=== PATIENT | male | born 1955 | race Caucasian/White ===

== ENCOUNTER 2016-12-14 14:37 | Observation (INO) | payer OTHER ==
[~2016-12-14] VITALS: Ht 177.8 cm; Wt 100.0 kg
[~2016-12-14 14:37] MED LIST: DICL500 PO; FEXO180 PO; GLIP1TAB18 PO; GLIP5 PO; METF500 PO; METO50TA11 PO; NORC7.5T PO; RAMI5CAP7 PO; RANI150T PO; ROSU40 PO; STOO100C PO; SULF400T20 PO; TERA2CAP3 PO; Z.0.WALKERFRONT
[2016-12-14 14:40] VITALS: BP 148/81; PULSE 77; RESP 15; TEMP 98.2; O2SAT 98
--- NOTE | 2016-12-14 14:54 | PD ---
Physical Exam Time Seen by Provider: 14:51 Narrative 61yo M c/o waking up this morning w/ dizziness. Checked BS 183; BP 140/93; HR 69 at home. Was pale. Feels lightheaded now. Denies chest pain, SOB. Patient seen in triage. VS reviewed. Awaiting bed placement. Data Data Last Documented VS Vital Signs Date Time Temp Pulse Resp B/P (MAP) Pulse Ox O2 Delivery O2 Flow Rate FiO2 12/14/16 14:40 98.2 77 15 148/81 (103) 98 MDM Supervised Visit with KARELY: Paige Ashton Dec 14, 2016 14:54
[2016-12-14] MEDS ORDERED: SODIUM CHLORIDE 0.9% FLUSH 10 ML FLUSH IVF PRN (15:00)
[2016-12-14 16:23] LABS: AUTOMATED NEUTROPHIL # 3.4 TH/MM3 (1.8-7.7); BASOPHIL % 0.6 % (0.0-2.0); EOSINOPHIL # 0.1 TH/MM3 (0-0.4); EOSINOPHIL % 1.8 % (0.0-4.0); HEMATOCRIT 43.8 % (39.0-51.0); HEMO FLAGS DIFF FINAL; LYMPH % 20.3 % (9.0-44.0); MEAN CORPUSCULAR HEMOGLOBIN 30.4 PG (27.0-34.0); MEAN CORPUSCULAR HGB CONC 33.8 % (32.0-36.0); MONO % 9.4 % (0.0-8.0); NEUT % 67.9 % (16.0-70.0); PLATELET COUNT 137 TH/MM3 (150-450); RED BLOOD COUNT 4.86 MIL/MM3 (4.50-5.90); RED CELL DISTRIBUTION WIDTH 13.6 % (11.6-17.2)
[2016-12-14 16:39] VITALS: BP 133/67; PULSE 64; RESP 17; TEMP 97.8; O2SAT 98
[2016-12-14 16:45] LABS: BICARBONATE 24.4 MEQ/L (21.0-32.0); POTASSIUM 4.1 MEQ/L (3.5-5.1)
[2016-12-14 16:46] VITALS: BP_SYST 145; BP_SYST 146; BP_SYST 154; BP_DIAS 74; BP_DIAS 82; BP_DIAS 85; RESP 16; RESP 18
[2016-12-14] MEDS ORDERED: TURMERIC 800 MG PO (17:40)
[2016-12-14] MEDS ORDERED: FISH100020 PO (17:40)
[2016-12-14] MEDS ORDERED: ASPI1TAB91 PO (17:40)
[2016-12-14] MEDS ORDERED: NAPR220C22 PO (17:40)
[2016-12-14] MEDS ORDERED: GLIM4TAB PO (17:40)
[2016-12-14] MEDS ORDERED: TERA2CAP3 PO (17:40)
[2016-12-14] MEDS ORDERED: CYAN1TAB24 PO (17:40)
[2016-12-14] MEDS ORDERED: POTA99TA4 PO (17:40)
[2016-12-14] MEDS ORDERED: VITA100018 PO (17:40)
[2016-12-14] MEDS ORDERED: CO Q100C9 PO (17:40)
[2016-12-14] MEDS ORDERED: CEROTAB2 PO (17:40)
[2016-12-14] MEDS ORDERED: ROSU40 PO (17:40)
[2016-12-14] MEDS ORDERED: AMLO5TAB2 PO (17:40)
[2016-12-14] MEDS ORDERED: METO-309 PO (17:40)
[2016-12-14] MEDS ORDERED: PIOG15TA5 PO (17:40)
[2016-12-14] MEDS ORDERED: TRAD5TAB PO (17:40)
[2016-12-14] MEDS ORDERED: RAMI5CAP PO (17:40)
--- NOTE | 2016-12-14 17:55 | RADRPT ---
EXAM DATE/TIME: 12/14/2016 17:47 [facility] COMPARISON: No previous studies available for comparison. INDICATIONS : Patient complains of dizziness. RADIATION DOSE: 40.27 CTDIvol (mGy) MEDICAL HISTORY : Hypertension. Diabetes mellitus type 1. Cardiovascular diseaseCHF SURGICAL HISTORY : CABG ENCOUNTER: Initial ACUITY: 1 day PAIN SCALE: 0/10 LOCATION: cranial TECHNIQUE: Multiple contiguous axial images were obtained of the head. Using automated exposure control and adj ustment of the mA and/or kV according to patient size, radiation dose was kept as low as reasonably a chievable to obtain optimal diagnostic quality images. DICOM format image data is available electro nically for review and comparison. FINDINGS: There is no evidence for intracranial hemorrhage, mass effect, mass lesions, edema, or extra-axial fl uid collections. The visualized bony structures appear intact. The ventricles are normal size for t he patient's age. There are no signs of acute infarction for technique. CONCLUSION: Unremarkable study. Tran Gupta MD on December 14, 2016 at 17:53 Board Certified Radiologist. This report was verified electronically.
[2016-12-14 18:01] VITALS: BP 140/71; PULSE 65; RESP 18; TEMP 97.8; O2SAT 98
[2016-12-14 18:58] VITALS: BP 174/85; PULSE 96; RESP 18; O2SAT 100
--- NOTE | 2016-12-14 19:07 | RADRPT ---
EXAM DATE/TIME: 12/14/2016 18:12 [facility] COMPARISON: No previous studies available for comparison. INDICATIONS : CVA. Dizziness and weakness. MEDICAL HISTORY : Diabetes mellitus type 2. Hypertension. SURGICAL HISTORY : CABG Patella debridement right knee. ENCOUNTER: Initial ACUITY: 1 day PAIN SCORE: 0/10 LOCATION: Head. Please note a normal MRA of the brain does not entirely exclude the possibility of a small aneurysm, nor the possibility of distal intracranial vessel disease. TECHNIQUE: 3D time of flight MRA was performed. Source images, multiplanar STS MIP, and 3D volume MIP reconstru ctions were reviewed. FINDINGS: Anterior circulation: The internal carotid arteries demonstrate no acute abnormality. A1 segments and more distal anterior cerebral arteries are symmetric and within normal limits. The middle cerebral artery branches demonst rate symmetric flow related enhancement. No aneurysm or high-grade stenosis is identified. Posterior circulation: There are patent posterior cerebral arteries bilaterally. The left vertebral artery is dominant. Righ t vertebral artery terminates in the PICA. The basilar artery and posterior cerebral arteries demonst rate no significant stenosis or abnormality. No aneurysm is visualized. CONCLUSION: No acute intracranial vascular abnormality is identified. Carlos Duran MD on December 14, 2016 at 19:02 Board Certified Radiologist. This report was verified electronically.
--- NOTE | 2016-12-14 19:09 | RADRPT ---
EXAM DATE/TIME: 12/14/2016 18:12 [facility] COMPARISON: MRA BRAIN W/O CONTRAST, December 14, 2016, 18:12. CT BRAIN W/O CONTRAST, December 14, 2016, 17:47. INDICATIONS : CVA. Dizziness and weakness. MEDICAL HISTORY : Hypertension. Diabetes mellitus type 2. SURGICAL HISTORY : CABG Patella debridement right knee. ENCOUNTER: Initial ACUITY: 1 day PAIN SCORE: 0/10 LOCATION: Head. TECHNIQUE: Multiplanar, multisequence MRI of the brain was performed without contrast. FINDINGS: CEREBRUM: The ventricles are normal. No evidence of midline shift, mass lesion, hemorrhage or acute infarction . No extraaxial fluid collections are seen. The pituitary gland and suprasellar cistern are normal in configuration. WHITE MATTER: No significant signal abnormalities are seen in the white matter. POSTERIOR FOSSA: The cerebellum and brainstem demonstrate no acute finding. The 4th ventricle is midline. The cerebel lopontine angle is unremarkable. The cerebellar tonsils are normal in position. DIFFUSION IMAGING: No focal areas of restricted diffusion are seen. No evidence of acute infarction. EXTRACRANIAL: The visualized portions of the orbits and paranasal sinuses are unremarkable. CONCLUSION: No acute intracranial abnormality is identified. There no findings to indicate recent ischemia. Carlos Duran MD on December 14, 2016 at 19:06 Board Certified Radiologist. This report was verified electronically.
--- NOTE | 2016-12-14 19:38 | PD ---
HPI Chief Complaint: Dizziness Time Seen by Provider: 16:41 Travel History International Travel<30 days: No Contact w/Intl Traveler<30days: No History of Present Illness HPI 61-year-old male came to the emergency room with history of dizziness since this morning. He says he was feeling like the room was spinning. He preferred to lay down for a little bit. When it did not go away and he decided to check his blood sugar. It was 180. He decided not to come to the emergency room at that point but later in the afternoon when his came home from work she noticed that he looked very pale and diaphoretic. He told her that he was not doing good and she decided to bring him to the emergency room herself. Currently patient says he just feels weak. Blood test was done in triage and most of the results of back and they're within acceptable limits. says that his speech was slow but she could understand what he was saying. He did not appear to be confused. [facility] Past Medical History Narrative Medical List of his past medical, surgical, social and family history is reviewed from the nursing note. Arthritis: No Asthma: No Autoimmune Disease: No Blood Disorders: No Anxiety: No Depression: No Heart Rhythm Problems: No Cancer: No Cardiovascular Problems: Yes (CHF) High Cholesterol: No Chemotherapy: No Chest Pain: Yes Congestive Heart Failure: Yes COPD: No Cerebrovascular Accident: No Diabetes: Yes Patient Takes Glucophage: No Diminished Hearing: No Endocrine: Yes Gastrointestinal Disorders: Yes (GERD) GERD: No Glaucoma: Yes Genitourinary: Yes (bph) Headaches: No Hepatitis: No Hiatal Hernia: Yes Hypertension: Yes Immune Disorder: No Kidney Stones: No Musculoskeletal: Yes (ARTHRITIS, LOW BACK PAIN, PAIN IN SHOULDERS, ) Neurologic: Yes (BILATERAL LEG NUMBNESS ) Psychiatric: No Reproductive: No Respiratory: Yes (CHF) Migraines: No Myocardial Infarction: No Radiation Therapy: No Renal Failure: No Seizures: No Sickle Cell Disease: No Sleep Apnea: No Thyroid Disease: No Ulcer: No Tetanus Vaccination: > 5 Years Influenza Vaccination: Yes Past Surgical History Abdominal Surgery: No AICD: No Appendectomy: No Arteriovenous Shunt: No Body Medical Devices: STENT L LEG FROM CARDIAC SURGERY STENTS IN CHEST FROM SURGERY Cardiac Surgery: Yes (CABG 5 VESSELS 2006) Cholecystectomy: No Coronary Artery Bypass Graft: Yes (5 BYPASS) Ear Surgery: No Endocrine Surgery: No Eye Surgery: No Genitourinary Surgery: No Gynecologic Surgery: No Insulin Pump: No Joint Replacement: No Oral Surgery: No Pacemaker: No Thoracic Surgery: Yes (R LUNG PUNCTURE IN THE PAST FROM CENTRAL LINE) Other Surgery: Yes (CABG 2006) Social History Alcohol Use: Yes (2-3 BEERS DAILY) Tobacco Use: No Substance Use: No (PT DENIES ) Allergies-Medications (Allergen,Severity, Reaction): Coded Allergies: metformin (Verified Allergy, Unknown, 12/14/16) clopidogrel (Unverified Adverse Reaction, Intermediate, Nausea/Vomiting, ) Comments list of his allergies reviewed from the nursing note. Reported Meds & Prescriptions Reported Meds & Active Scripts Active Reported Aleve (Naproxen Sodium) 220 Mg Capsule 220 Mg PO BID PRN Cerovite Senior (Multiple Vitamins W/ Minerals) 1 Tab Tab 1 Tab PO DAILY B12 (Cyanocobalamin) 1,000 Mcg Tab 1,000 Mcg PO HS Fish Oil 1000 mg ([place]-3 Fatty Acids) 1 Cap Cap 1,000 Mg PO BID [Turmeric 800MG] 800 Mg PO DAILY Potassium 99 Mg Tablet 99 Mg PO HS Vitamin D3 (Cholecalciferol) 1,000 Unit Tab 1,000 Units PO HS Glimepiride 4 Mg Tab 4 Mg PO DAILY Take with breakfast or first main meal Lopressor (Metoprolol Tartrate) 50 Mg Tab 50 Mg PO BID Tradjenta (Linagliptin) 5 Mg Tab 5 Mg PO DAILY Aspirin Adult Low Strength (Aspirin) 81 Mg Tabdr 81 Mg PO DAILY Pioglitazone (Pioglitazone HCl) 15 Mg Tab 15 Mg PO DAILY Ramipril 5 Mg Cap 5 Mg PO DAILY Amlodipine (Amlodipine Besylate) 5 Mg Tab 5 Mg PO DAILY Terazosin (Terazosin HCl) 2 Mg Cap 4 Mg PO HS Crestor (Rosuvastatin Calcium) 40 Mg Tab 40 Mg PO HS Co Q 10 (Coenzyme Q10 (Ubidecarenone)) 100 Mg Cap 100 Mg PO HS Narrative Medication list of his home medications reviewed from the nursing note. Review of Systems Except as stated in HPI: all other systems reviewed are Neg Physical Exam Narrative GENERAL: Awake, Alert, mild distress SKIN: Focused skin assessment warm/dry. HEAD: Atraumatic. Normocephalic. EYES: Pupils equal and round. No scleral icterus. No injection or drainage. ENT: No nasal bleeding or discharge. Mucous membranes pink and moist. NECK: Trachea midline. No JVD. CARDIOVASCULAR: Regular rate and rhythm. No murmur appreciated. RESPIRATORY: No accessory muscle use. Clear to auscultation. Breath sounds equal bilaterally. GASTROINTESTINAL: Abdomen soft, non-tender, nondistended. Hepatic and splenic margins not palpable. MUSCULOSKELETAL: No obvious deformities. No clubbing. No cyanosis. No edema. NEUROLOGICAL: Awake and alert. No obvious cranial nerve deficits. Motor grossly within normal limits. Normal speech. NIH stroke score of 2 for decreased sensation on the left lower extremity and slight weakness of left lower extremity PSYCHIATRIC: Appropriate mood and affect; insight and judgment normal. Data Data Last Documented VS Vital Signs Date Time Temp Pulse Resp B/P (MAP) Pulse Ox O2 Delivery O2 Flow Rate FiO2 12/14/16 18:58 96 18 174/85 (114) 100 Room Air 12/14/16 18:01 97.8 Orders Orders Electrocardiogram (12/14/16 14:54) Basic Metabolic Panel (Bmp) (12/14/16 14:54) Complete Blood Count With Diff (12/14/16 14:54) Ecg Monitoring (12/14/16 14:54) Iv Access Insert/Monitor (12/14/16 14:54) Oximetry (12/14/16 14:54) Sodium Chloride 0.9% Flush (Ns Flush) (12/14/16 15:00) Troponin I (12/14/16 16:55) Ct Brain W/O Iv Contrast(Rout) (12/14/16 ) Mra Brain W/O Contrast (Cow) (12/14/16 ) Mri Brain W/O Contrast (12/14/16 ) Admit Order (Ed Use Only) (12/14/16 19:46) Labs Laboratory Tests Test 12/14/16 16:00 12/14/16 17:00 White Blood Count 5.0 TH/MM3 Red Blood Count 4.86 MIL/MM3 Hemoglobin 14.8 GM/DL Hematocrit 43.8 % Mean Corpuscular Volume 90.0 FL Mean Corpuscular Hemoglobin 30.4 PG Mean Corpuscular Hemoglobin Concent 33.8 % Red Cell Distribution Width 13.6 % Platelet Count 137 TH/MM3 Mean Platelet Volume 8.6 FL Neutrophils (%) (Auto) 67.9 % Lymphocytes (%) (Auto) 20.3 % Monocytes (%) (Auto) 9.4 % Eosinophils (%) (Auto) 1.8 % Basophils (%) (Auto) 0.6 % Neutrophils # (Auto) 3.4 TH/MM3 Lymphocytes # (Auto) 1.0 TH/MM3 Monocytes # (Auto) 0.5 TH/MM3 Eosinophils # (Auto) 0.1 TH/MM3 Basophils # (Auto) 0.0 TH/MM3 CBC Comment DIFF FINAL Differential Comment Blood Urea Nitrogen 17 MG/DL Creatinine 1.02 MG/DL Random Glucose 176 MG/DL Calcium Level 9.2 MG/DL Sodium Level 138 MEQ/L Potassium Level 4.1 MEQ/L Chloride Level 105 MEQ/L Carbon Dioxide Level 24.4 MEQ/L Anion Gap 9 MEQ/L Estimat Glomerular Filtration Rate 74 ML/MIN Troponin I LESS THAN 0.02 NG/ML MDM Medical Decision Making Medical Screen Exam Complete: Yes Emergency Medical Condition: Yes Medical Record Reviewed: Yes Interpretation(s) Twelve-lead EKG was reviewed by me. Normal sinus rhythm, normal axis, nonspecific ST-T wave changes. Heart rate of 60 bpm. Differential Diagnosis CVA, TIA, ACS Narrative Course 7:36 PM blood test results are within normal limits including the troponin. CT scan of the head was negative as well as the MRI and MRA. However the patient' s history is quite concerning and I would like to keep him for observation for TIA. Awaiting for the hospitalist to call back. Procedures EKG Prior to Arrival: No Diagnosis Primary Impression: TIA (transient ischemic attack) Qualified Codes: G45.9 - Transient cerebral ischemic attack, unspecified Admitting Information Admitting Physician Requests: Observation Susy Winter MD Dec 14, 2016 19:38
[2016-12-14] MEDS ORDERED: NON-FORMULARY DRUG (Cyanocobalamin (B12) 1,000 MCG) PO SCH (21:00)
[2016-12-14] MEDS ORDERED: TERAZOSIN HCL 1 MG CAP PO SCH (21:00)
[2016-12-14] MEDS ORDERED: CHOLECALCIFEROL (VIT D3) 1000 UNIT TAB PO SCH (21:00)
[2016-12-14] MEDS ORDERED: NON-FORMULARY DRUG (Coenzyme Q10 (Ubidecarenone) (Co Q 10) 100 MG) PO SCH (21:00)
--- NOTE | 2016-12-14 21:08 | HHI.HP ---
HPI Service [facility] Primary Care Physician Curtis Boateng, DO Admission Diagnosis Dizziness/TIA Chief Complaint: Dizziness, nausea, diaphoresis Travel History International Travel<30 Days: No Contact w/Intl Traveler <30 Da: No History of Present Illness 61-year-old male with known CAD s/p CABG in 2006 came to the emergency room with history of dizziness starting this morning. He says he was feeling like the room was spinning. He preferred to lay down for a little bit. It did not go away and he decided to check his blood sugar. It was 180. He decided not to come to the emergency room at that point but later in the afternoon when his came home from work she noticed that he looked very pale and diaphoretic. Told her that he was not doing good and she decided to bring him to the emergency room herself. Reports that spinning resolved but still felt very unsteady on his feet. says that his speech was slow but she could understand what he was saying. He did not appear to be confused. His symptoms currently have resolved except feeling overall weak. he notes that he has had transient similar episodes over last couple of weeks, but generally resolve. They typically occur after he has been working out in sun all day long. Once he rests, symptoms generally gume however today they persisted. Of note, he reports that he had similar symptoms prompting his cardiac w/u and CABG in 2006 (never had CP or SOB then either per his report). He additionally reports that he had "negative nuclear stress test" appx 6 mos ago and recent carotid u/s demonstrating 50% stenosis bilat. I can't access these outpt studies at present time due to EMR issues. His CT, labs, MRI are all unremarkable here. Review of Systems Constitutional: COMPLAINS OF: Diaphoretic episodes, Fatigue, Chills, Dizziness , DENIES: Fever, Weight gain, Weight loss, Change in appetite, Night Sweats Endocrine: DENIES: Heat/cold intolerance, Polydipsia, Polyuria, Polyphagia Eyes: DENIES: Blurred vision, Diplopia, Eye inflammation, Eye pain, Vision loss , Photosensitivity, Double Vision Ears, nose, mouth, throat: DENIES: Tinnitus, Hearing loss, Vertigo, Nasal discharge, Oral lesions, Throat pain, Hoarseness, Ear Pain, Running Nose, Epistaxis, Sinus Pain, Toothache, Odynophagia Respiratory: DENIES: Apneas, Cough, Snoring, Wheezing, Hemoptysis, Sputum production, Shortness of breath Cardiovascular: DENIES: Chest pain, Palpitations, Syncope, Dyspnea on Exertion , PND, Lower Extremity Edema, Orthopnea, Claudication Gastrointestinal: COMPLAINS OF: Nausea, DENIES: Abdominal pain, Black stools, Bloody stools, BRB per rectum, Constipation, Diarrhea, GERD, Reflux, Vomiting, Difficulty Swallowing, Anorexia, See HPI Musculoskeletal: COMPLAINS OF: Joint pain Hematologic/lymphatic: DENIES: Bruising, Lymphadenopathy Immunologic/allergic: DENIES: Eczema, Urticaria Neurologic: COMPLAINS OF: Poor Balance, DENIES: Abnormal gait, Headache, Localized weakness, Paresthesias, Seizures, Speech Problems, Tremor Psychiatric: DENIES: Anxiety, Confusion, Mood changes, Depression, Hallucinations, Agitation, Suicidal Ideation, Homicidal Ideation, Delusions, History of Bipolar, History of Schizophrenia Past Family Social History Past Medical History HTN Hyperlipidemia DM2 (A1c was 9 a couple of months ago per pt) CAD BPH Past Surgical History CABG x 2006 Right knee arthroscopy, 2016 Reported Medications Aleve (Naproxen Sodium) 220 Mg Capsule 220 Mg PO BID PRN Cerovite Senior (Multiple Vitamins W/ Minerals) 1 Tab Tab 1 Tab PO DAILY B12 (Cyanocobalamin) 1,000 Mcg Tab 1,000 Mcg PO HS Fish Oil 1000 mg ([place]-3 Fatty Acids) 1 Cap Cap 1,000 Mg PO BID [Turmeric 800MG] 800 Mg PO DAILY Potassium 99 Mg Tablet 99 Mg PO HS Vitamin D3 (Cholecalciferol) 1,000 Unit Tab 1,000 Units PO HS Glimepiride 4 Mg Tab 4 Mg PO DAILY Take with breakfast or first main meal Lopressor (Metoprolol Tartrate) 50 Mg Tab 50 Mg PO BID Tradjenta (Linagliptin) 5 Mg Tab 5 Mg PO DAILY Aspirin Adult Low Strength (Aspirin) 81 Mg Tabdr 81 Mg PO DAILY Pioglitazone (Pioglitazone HCl) 15 Mg Tab 15 Mg PO DAILY Ramipril 5 Mg Cap 5 Mg PO DAILY Amlodipine (Amlodipine Besylate) 5 Mg Tab 5 Mg PO DAILY Terazosin (Terazosin HCl) 2 Mg Cap 4 Mg PO HS Crestor (Rosuvastatin Calcium) 40 Mg Tab 40 Mg PO HS Co Q 10 (Coenzyme Q10 (Ubidecarenone)) 100 Mg Cap 100 Mg PO HS Allergies: Coded Allergies: metformin (Verified Allergy, Unknown, 12/14/16) clopidogrel (Unverified Adverse Reaction, Intermediate, Nausea/Vomiting, ) Family History M,F- DM, HTN, CAD Mother of [place] Father of AAA Social History No tobacco Drinks 2 beers/night, but up to 6 on w/e No illicits x 43 yrs. 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 SKIN: No rashes, ecchymoses or lesions. Cool and dry. HEAD: Atraumatic. Normocephalic. No temporal or scalp tenderness. EYES: Pupils equal round and reactive. Extraocular motions intact. No scleral icterus. No injection or drainage. ENT: Nose without bleeding, purulent drainage or septal hematoma. Airway patent. NECK: Trachea midline. No JVD or lymphadenopathy. Supple, nontender, no meningeal signs. CARDIOVASCULAR: Regular rate and rhythm without murmurs, gallops, or rubs. RESPIRATORY: Clear to auscultation. Breath sounds equal bilaterally. No wheezes , rales, or rhonchi. GASTROINTESTINAL: Abdomen soft, non-tender, nondistended. No hepato-splenomegaly , or palpable masses. No guarding. MUSCULOSKELETAL: Extremities without clubbing, cyanosis, or edema. No joint tenderness, effusion, or edema noted. No calf tenderness. Negative Homans sign bilaterally. NEUROLOGICAL: Awake and alert. Cranial nerves II through XII intact. Motor and sensory grossly within normal limits. Five out of 5 muscle strength in all muscle groups. Normal speech. Laboratory Laboratory Tests Test 12/14/16 16:00 12/14/16 17:00 White Blood Count 5.0 Red Blood Count 4.86 Hemoglobin 14.8 Hematocrit 43.8 Mean Corpuscular Volume 90.0 Mean Corpuscular Hemoglobin 30.4 Mean Corpuscular Hemoglobin Concent 33.8 Red Cell Distribution Width 13.6 Platelet Count 137 Mean Platelet Volume 8.6 Neutrophils (%) (Auto) 67.9 Lymphocytes (%) (Auto) 20.3 Monocytes (%) (Auto) 9.4 Eosinophils (%) (Auto) 1.8 Basophils (%) (Auto) 0.6 Neutrophils # (Auto) 3.4 Lymphocytes # (Auto) 1.0 Monocytes # (Auto) 0.5 Eosinophils # (Auto) 0.1 Basophils # (Auto) 0.0 CBC Comment DIFF FINAL Differential Comment Blood Urea Nitrogen 17 Creatinine 1.02 Random Glucose 176 Calcium Level 9.2 Sodium Level 138 Potassium Level 4.1 Chloride Level 105 Carbon Dioxide Level 24.4 Anion Gap 9 Estimat Glomerular Filtration Rate 74 Troponin I LESS THAN 0.02 Result Diagram: 12/14/16 1600 12/14/16 1600 Imaging Last 72 hours Impressions Head Magnetic Resonance Angiography 12/14/16 0000 Signed Impressions: Service Date/Time: November 18:12 - CONCLUSION: No acute intracranial vascular abnormality is identified. Carlos Duran MD Head CT 12/14/16 0000 Signed Impressions: Service Date/Time: November 17:47 - CONCLUSION: Unremarkable study. Tran Gupta MD Brain MRI 12/14/16 0000 Signed Impressions: Service Date/Time: November 18:12 - CONCLUSION: No acute intracranial abnormality is identified. There no findings to indicate recent ischemia. MD David Tatum VTE Risk Assessment Caprini VTE Risk Assessment: Mod/High Risk (score >= 2) Caprini Risk Assessment Model Point Value = 1 Point Value = 2 Point Value = 3 Point Value = 5 Age 41-60 Minor surgery BMI > 25 kg/m2 Swollen legs Varicose veins or History of unexplained or recurrent spontaneous Oral contraceptives or hormone replacement Sepsis (< 1 month) Serious lung disease, including pneumonia (< 1 month) Abnormal pulmonary function Acute myocardial infarction Congestive heart failure (< 1 month) History of inflammatory bowel disease Medical patient at bed rest Age 61-74 Arthroscopic surgery Major open surgery (> 45 min) Laparoscopic surgery (> 45 min) Malignancy Confined to bed (> 72 hours) Immobilizing plaster cast Central venous access Age >= 75 History of VTE Family history of VTE Factor V Leiden Prothrombin [id number] Lupus anticoagulant Anticardiolipin antibodies Elevated serum homocysteine Heparin-induced thrombocytopenia Other congenital or acquired thrombophilia Stroke (< 1 month) Elective arthroplasty Hip, pelvis, or leg fracture Acute spinal cord injury (< 1 month) Prophylaxis Regimen Total Risk Factor Score Risk Level Prophylaxis Regimen 0-1 Low Early ambulation 2 Moderate Order ONE of the following: *Sequential Compression Device (SCD) *Heparin 5000 units SQ BID 3-4 Higher Order ONE of the following medications: *Heparin 5000 units SQ TID *Enoxaparin/Lovenox 40 mg SQ daily (WT < 150 kg, CrCl > 30 mL/min) *Enoxaparin/Lovenox 30 mg SQ daily (WT < 150 kg, CrCl > 10-29 mL/min) *Enoxaparin/Lovenox 30 mg SQ BID (WT < 150 kg, CrCl > 30 mL/min) AND/OR *Sequential Compression Device (SCD) 5 or more Highest Order ONE of the following medications: *Heparin 5000 units SQ TID (Preferred with Epidurals) *Enoxaparin/Lovenox 40 mg SQ daily (WT < 150 kg, CrCl > 30 mL/min) *Enoxaparin/Lovenox 30 mg SQ daily (WT < 150 kg, CrCl > 10-29 mL/min) *Enoxaparin/Lovenox 30 mg SQ BID (WT < 150 kg, CrCl > 30 mL/min) AND *Sequential Compression Device (SCD) Assessment and Plan Problem List: (1) Vertigo ICD Codes: R42 - Dizziness and giddiness Status: Acute Plan: No central signs on exam. Dalton maneuver negative and doesn't reproduce symptoms. Not strongly suspicious of central etiology, but given his cardiac history will place in obs, check echo and have cardiology see him. He had similar symptoms prior to CABG in 2006. (2) CAD (coronary artery disease), [place] coronary artery ICD Codes: I25.10 - Atherosclerotic heart disease of [place] coronary artery without angina pectoris Status: Chronic Plan: as noted above. (3) Hypertension ICD Codes: I10 - Essential (primary) hypertension Status: Chronic Plan: cont rx. (4) Hyperlipemia ICD Codes: E78.5 - Hyperlipidemia, unspecified Status: Chronic Plan: cont rx (5) DM type 2 (diabetes mellitus, type 2) ICD Codes: E11.9 - Type 2 diabetes mellitus without complications Status: Chronic Plan: cont Tradjenta, SSI. A1c was 9 a couple of months ago per pt (6) BPH (benign prostatic hyperplasia) ICD Codes: N40.0 - Benign prostatic hyperplasia without lower urinary tract symptoms Plan: cont rx Code Status full Discussed Condition With pt, his and ER provider Problem Qualifiers (1) Hypertension: Qualified Codes: I10 - Essential (primary) hypertension (2) Hyperlipemia: Qualified Codes: E78.00 - Pure hypercholesterolemia, unspecified Daniel Barnett MD PhD Dec 14, 2016 21:08
--- NOTE | 2016-12-14 21:30 | RADRPT ---
EXAM DATE/TIME: 12/14/2016 21:30 [facility] COMPARISON: CHEST SINGLE AP, November 11, 2014, 11:53. INDICATIONS : Cardiac disease. MEDICAL HISTORY : Cardiovascular disease. SURGICAL HISTORY : Open heart. ENCOUNTER: Initial ACUITY: 1 day PAIN SCORE: 0/10 LOCATION: Bilateral chest FINDINGS: PA and lateral views of the chest demonstrate a normal-sized cardiac silhouette. There is no effusion , consolidation, or pneumothorax. The bones and soft tissues demonstrate no acute abnormality. Patien t is post median sternotomy and CABG. CONCLUSION: No acute cardiopulmonary abnormality is identified. Carlos Duran MD on December 14, 2016 at 21:26 Board Certified Radiologist. This report was verified electronically.
[2016-12-14] MEDS ORDERED: CYANOCOBALAMIN 1,000 MCG TAB PO SCH (21:45)
[2016-12-14] MEDS ORDERED: ATORVASTATIN 80 MG TAB PO SCH (21:45)
[2016-12-14] MEDS: METOPROLOL TARTRATE 50 MG TAB PO SCH (21:48)
[2016-12-14 23:16] VITALS: BP 167/78; PULSE 66; RESP 18; TEMP 97.6; O2SAT 98
[2016-12-15 03:57] VITALS: BP 128/69; RESP 20; TEMP 98.8; O2SAT 96
[2016-12-15 07:01] LABS: CREATINE KINASE 50 U/L (39-308)
[2016-12-15] MEDS: INSULIN ASPART SUPPLEMENTAL SCALE SQ SCH ×2 (07:14→11:00)
[2016-12-15 07:32] VITALS: BP_SYST 124; BP_SYST 138; BP_SYST 146; BP_DIAS 75; BP_DIAS 78; BP_DIAS 85; PULSE 68; RESP 18; TEMP 98.1; O2SAT 96
--- NOTE | 2016-12-15 08:08 | PD.CONS ---
HPI Service cardiology Consult Requested By Reason for Consult diaphoresis, weakness Primary Care Physician Curtis Boateng DO History of Present Illness 61 yo WM with history of CABG in 2007, DMII, HTN, and HLD who was brought to the ED by his yesterday after feeling weak and dizzy upon wakening. He describes feeling generalized weakness and dizziness and couldn't stand; he layed back down in bed and felt somewhat better. Throughout the day he continues to feel unwell; fatigued with diaphoresis and assoc nausea with vomiting x 1 episode. He denies vertigo. He has been having sinus drainage fir the past few days. Also states he's been feeling exhausted more after working in the heat. The patient states these symptoms are similar to his prior MO; never having felt chest pain. Currently he's feeling better. ECG and troponins are unremarkable. Nuclear stress test 9 months ago normal; recent carotid ultrasound showing 50% stenosis bilaterally per patient. No chest pain, SOB or palpitations. ([place]) Review of Systems Consitutional: DENIES: Fever, Chills, Weight gain, Weight loss Respiratory: DENIES: Cough, Snoring, Shortness of breath, Wheezing, Sputum production Cardiovascular: DENIES: Chest pain, Palpitations, Syncope, Tachycardia Gastrointestinal: DENIES: Change in bowel habits, Reflux, Bloody stools, Melena ([place]) Past Family Social History Allergies: Coded Allergies: metformin (Verified Allergy, Unknown, 12/14/16) clopidogrel (Unverified Adverse Reaction, Intermediate, Nausea/Vomiting, ) Past Medical History HTN Hyperlipidemia DM2 (A1c was 9 a couple of months ago per pt) CAD BPH Past Surgical History CABG x , 2006 Right knee arthroscopy, 2016 Reported Medications Reported Meds & Active Scripts Active Reported Aleve (Naproxen Sodium) 220 Mg Capsule 220 Mg PO BID PRN Cerovite Senior (Multiple Vitamins W/ Minerals) 1 Tab Tab 1 Tab PO DAILY B12 (Cyanocobalamin) 1,000 Mcg Tab 1,000 Mcg PO HS Fish Oil 1000 mg ([place]-3 Fatty Acids) 1 Cap Cap 1,000 Mg PO BID [Turmeric 800MG] 800 Mg PO DAILY Potassium 99 Mg Tablet 99 Mg PO HS Vitamin D3 (Cholecalciferol) 1,000 Unit Tab 1,000 Units PO HS Glimepiride 4 Mg Tab 4 Mg PO DAILY Take with breakfast or first main meal Lopressor (Metoprolol Tartrate) 50 Mg Tab 50 Mg PO BID Tradjenta (Linagliptin) 5 Mg Tab 5 Mg PO DAILY Aspirin Adult Low Strength (Aspirin) 81 Mg Tabdr 81 Mg PO DAILY Pioglitazone (Pioglitazone HCl) 15 Mg Tab 15 Mg PO DAILY Ramipril 5 Mg Cap 5 Mg PO DAILY Amlodipine (Amlodipine Besylate) 5 Mg Tab 5 Mg PO DAILY Terazosin (Terazosin HCl) 2 Mg Cap 4 Mg PO HS Crestor (Rosuvastatin Calcium) 40 Mg Tab 40 Mg PO HS Co Q 10 (Coenzyme Q10 (Ubidecarenone)) 100 Mg Cap 100 Mg PO HS Active Ordered Medications Current Medications Medications (Trade) Dose Ordered Sig/[place] Route Start Time Stop Time Status Last Admin (NS Flush) 2 ml UNSCH PRN IVF 12/14/16 15:00 (Ecotrin Ec) 81 mg DAILY PO 12/15/16 09:00 (Vitamin D3) 1,000 units HS PO 12/14/16 21:00 12/14/16 22:38 (Lopressor) 50 mg BID PO 12/14/16 21:00 12/14/16 21:48 (Altace) 5 mg DAILY PO 12/15/16 09:00 (Hytrin) 4 mg HS PO 12/14/16 21:00 12/14/16 22:38 Patient Own Medication PT OWN MED: NON-FORMULARY D... DAILY PO 12/15/16 09:00 Future Hold (Lipitor) 80 mg HS PO 12/14/16 21:45 12/14/16 22:38 (NovoLOG SUPPLEMENTAL SCALE) 1 ACHS SLIDING SCALE SQ 12/15/16 07:00 12/15/16 07:14 (Vitamin B12) 1,000 mcg HS PO 12/14/16 21:45 12/14/16 22:38 Family History M,F- DM, HTN, CAD Mother of [place] Father of AAA Social History No tobacco Drinks 2 beers/night, but up to 6 on w/e No illicits x 43 yrs. 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 ([place]) Physical Exam Vital Signs Vital Signs Date Time Temp Pulse Resp B/P (MAP) Pulse Ox O2 Delivery O2 Flow Rate FiO2 12/15/16 07:32 98.1 68 18 146/85 (105) 96 138/78 (98) 124/75 (91) 12/15/16 03:57 98.8 20 128/69 (88) 96 12/14/16 23:16 97.6 66 18 167/78 (107) 98 12/14/16 21:59 12/14/16 18:58 96 18 174/85 (114) 100 Room Air 12/14/16 18:01 97.8 65 18 140/71 (94) 98 Room Air 12/14/16 16:46 62 16 145/82 (103) 63 16 146/85 (105) 69 18 154/74 (100) 12/14/16 16:41 62 17 98 Room Air 12/14/16 16:39 97.8 64 17 133/67 (89) 98 Room Air 12/14/16 14:40 98.2 77 15 148/81 (103) 98 Physical Exam SKIN: Warm and dry. HEAD: Atraumatic. Normocephalic. EYES: Pupils equal and round. No scleral icterus. No injection or drainage. ENT: No nasal bleeding or discharge. Mucous membranes pink and moist. NECK: Trachea midline. No JVD. CARDIOVASCULAR: Regular rate and rhythm. No murmurs RESPIRATORY: No accessory muscle use. Clear to auscultation. Breath sounds equal bilaterally. GASTROINTESTINAL: Abdomen soft, non-tender, nondistended. Hepatic and splenic margins not palpable. MUSCULOSKELETAL: Extremities without clubbing, cyanosis, or edema. No obvious deformities. NEUROLOGICAL: Awake and alert. No obvious cranial nerve deficits. Normal speech. PSYCHIATRIC: Appropriate mood and affect; insight and judgment normal. Laboratory Laboratory Tests Test 12/14/16 16:00 12/14/16 17:00 12/15/16 04:08 White Blood Count 5.0 Red Blood Count 4.86 Hemoglobin 14.8 Hematocrit 43.8 Mean Corpuscular Volume 90.0 Mean Corpuscular Hemoglobin 30.4 Mean Corpuscular Hemoglobin Concent 33.8 Red Cell Distribution Width 13.6 Platelet Count 137 Mean Platelet Volume 8.6 Neutrophils (%) (Auto) 67.9 Lymphocytes (%) (Auto) 20.3 Monocytes (%) (Auto) 9.4 Eosinophils (%) (Auto) 1.8 Basophils (%) (Auto) 0.6 Neutrophils # (Auto) 3.4 Lymphocytes # (Auto) 1.0 Monocytes # (Auto) 0.5 Eosinophils # (Auto) 0.1 Basophils # (Auto) 0.0 CBC Comment DIFF FINAL Differential Comment Blood Urea Nitrogen 17 Creatinine 1.02 Random Glucose 176 Calcium Level 9.2 Sodium Level 138 Potassium Level 4.1 Chloride Level 105 Carbon Dioxide Level 24.4 Anion Gap 9 Estimat Glomerular Filtration Rate 74 Troponin I LESS THAN 0.02 LESS THAN 0.02 Total Creatine Kinase 50 ([place]) Result Diagram: 12/14/16 1600 12/14/16 1600 Assessment and Plan Problem List: (1) CAD (coronary artery disease), [place] coronary artery ICD Codes: I25.10 - Atherosclerotic heart disease of [place] coronary artery without angina pectoris Status: Chronic (2) Hypertension ICD Codes: I10 - Essential (primary) hypertension Status: Chronic Assessment and Plan 61 yo WM with prior CABG presents with weakness and dizziness he states are similar to his prior MO. ECG and troponins are unremarkable. symptoms sound like his anginal equivalent so we will proceed with lexiscan to evaluate for ischemia. keep npo. if abnormal, consider C. ([place]) Assessment and Plan lexiscan today obtain office records for echo re: murmur (Kenan Murphy MD) Problem Qualifiers (1) Hypertension: Qualified Codes: I10 - Essential (primary) hypertension [place] Dec 15, 2016 08:08 Kenan Murphy MD Dec 15, 2016 09:44
[2016-12-15] MEDS: METOPROLOL TARTRATE 50 MG TAB PO SCH (08:46)
[2016-12-15] MEDS ORDERED: NON-FORMULARY DRUG (Linagliptin (Tradjenta) 5 MG) PO SCH (09:00)
[2016-12-15] MEDS ORDERED: RAMIPRIL 5 MG CAP PO SCH (09:00)
[2016-12-15] MEDS ORDERED: ASPIRIN EC 81 MG TABEC PO SCH (09:00)
[2016-12-15] MEDS ORDERED: INFLUENZA VIRUS VACCINE (QUADRIVALENT) 0.5 ML SYR IM ONE (10:00)
--- NOTE | 2016-12-15 10:52 | HHI.PR ---
Subjective Remarks Pt reports that he has not had any further dizziness or lightheadedness today He has been ambulating without difficulty Objective Vitals Vital Signs Date Time Temp Pulse Resp B/P (MAP) Pulse Ox O2 Delivery O2 Flow Rate FiO2 12/15/16 07:32 98.1 68 18 146/85 (105) 96 138/78 (98) 124/75 (91) 12/15/16 03:57 98.8 20 128/69 (88) 96 12/14/16 23:16 97.6 66 18 167/78 (107) 98 12/14/16 21:59 12/14/16 18:58 96 18 174/85 (114) 100 Room Air 12/14/16 18:01 97.8 65 18 140/71 (94) 98 Room Air 12/14/16 16:46 62 16 145/82 (103) 63 16 146/85 (105) 69 18 154/74 (100) 12/14/16 16:41 62 17 98 Room Air 12/14/16 16:39 97.8 64 17 133/67 (89) 98 Room Air 12/14/16 14:40 98.2 77 15 148/81 (103) 98 12/15/16 12/15/16 12/16/16 15:00 23:00 07:00 Output Total 500 ml Balance -500 ml Output Urine Total 500 ml Result Diagram: 12/14/16 1600 12/14/16 1600 Other Results Laboratory Tests Test 12/14/16 16:00 12/14/16 17:00 12/15/16 04:08 White Blood Count 5.0 TH/MM3 Red Blood Count 4.86 MIL/MM3 Hemoglobin 14.8 GM/DL Hematocrit 43.8 % Mean Corpuscular Volume 90.0 FL Mean Corpuscular Hemoglobin 30.4 PG Mean Corpuscular Hemoglobin Concent 33.8 % Red Cell Distribution Width 13.6 % Platelet Count 137 TH/MM3 Mean Platelet Volume 8.6 FL Neutrophils (%) (Auto) 67.9 % Lymphocytes (%) (Auto) 20.3 % Monocytes (%) (Auto) 9.4 % Eosinophils (%) (Auto) 1.8 % Basophils (%) (Auto) 0.6 % Neutrophils # (Auto) 3.4 TH/MM3 Lymphocytes # (Auto) 1.0 TH/MM3 Monocytes # (Auto) 0.5 TH/MM3 Eosinophils # (Auto) 0.1 TH/MM3 Basophils # (Auto) 0.0 TH/MM3 CBC Comment DIFF FINAL Differential Comment Blood Urea Nitrogen 17 MG/DL Creatinine 1.02 MG/DL Random Glucose 176 MG/DL Calcium Level 9.2 MG/DL Sodium Level 138 MEQ/L Potassium Level 4.1 MEQ/L Chloride Level 105 MEQ/L Carbon Dioxide Level 24.4 MEQ/L Anion Gap 9 MEQ/L Estimat Glomerular Filtration Rate 74 ML/MIN Troponin I LESS THAN 0.02 NG/ML LESS THAN 0.02 NG/ML Total Creatine Kinase 50 U/L Imaging Last Impressions Head Magnetic Resonance Angiography 12/14/16 0000 Signed Impressions: Service Date/Time: , December 14, 2016 18:12 - CONCLUSION: No acute intracranial vascular abnormality is identified. Carlos Duran MD Head CT 12/14/16 0000 Signed Impressions: Service Date/Time: November 17:47 - CONCLUSION: Unremarkable study. Tran Gupta MD Chest X-Ray 12/14/16 0000 Signed Impressions: Service Date/Time: , December 14, 2016 21:30 - CONCLUSION: No acute cardiopulmonary abnormality is identified. Carlos Duran MD Brain MRI 12/14/16 0000 Signed Impressions: Service Date/Time: November 18:12 - CONCLUSION: No acute intracranial abnormality is identified. There no findings to indicate recent ischemia. Carlos Duran MD Objective Remarks General: NAD, AAOx3 Chest: CTA Cardiac: Regular, 3/6 JEWELL Abd: +BS, soft ND/NT Ext: No edema A/P Problem List: (1) Vertigo ICD Codes: R42 - Dizziness and giddiness Status: Acute Plan: - Pt is 61 y/o male with hx of CAD s/p CABG in 2006. - Pt presented to dizziness that began yesterday upon waking up in the morning. The patient reports that he was very unsteady and couldn't get his balance. - On examination there have been no central signs. Dalton maneuver performed at admission and reportedly did not reproduce symptoms. - Head CT was negative. - MRI Brain was negative - MRA Brain was negative. - Cardiology was consulted as there was concern for possible anginal equivalent as he had similar symptoms prior to CABG in 2006. - Cardiology is planning for Lexiscan today - 2D echo was ordered at admission but if not done prior to discharge can be performed as an outpt. - I called [facility] Cardiology and his last echo was from 2013 but was performed by Dr. Dodson's office so they could not send the report. (2) CAD (coronary artery disease), [place] coronary artery ICD Codes: I25.10 - Atherosclerotic heart disease of [place] coronary artery without angina pectoris Status: Chronic Plan: - As noted above. (3) Hypertension ICD Codes: I10 - Essential (primary) hypertension Status: Chronic Plan: - Cont home meds (4) Hyperlipemia ICD Codes: E78.5 - Hyperlipidemia, unspecified Status: Chronic Plan: - Cont rx (5) DM type 2 (diabetes mellitus, type 2) ICD Codes: E11.9 - Type 2 diabetes mellitus without complications Status: Chronic Plan: - Cont Tradjenta - NovoLog SSI. - Hgb A1c was 9 a couple of months ago per pt (6) BPH (benign prostatic hyperplasia) ICD Codes: N40.0 - Benign prostatic hyperplasia without lower urinary tract symptoms Plan: - Cont rx Assessment and Plan Patient examined. Assessment and plan formulated with Teresita Robbins PA-C. I agree with the above. no evidence for cva or acs. mri/a brain and jessa unremarkable. echo pending to [place]. pt asx all day and will f/u next week with dr Murphy. Problem Qualifiers (1) Hypertension: Qualified Codes: I10 - Essential (primary) hypertension (2) Hyperlipemia: Qualified Codes: E78.00 - Pure hypercholesterolemia, unspecified Teresita Robbins Dec 15, 2016 10:52 Juan Talley MD Dec 15, 2016 15:53
[2016-12-15 11:53] VITALS: BP 127/74; PULSE 65; RESP 14; TEMP 97.4; O2SAT 97
--- NOTE | 2016-12-15 11:53 | EKG ---
Date Performed: 12/14/2016 Time Performed: 15:44:35 PTAGE: 61 years EKG: Sinus rhythm NONSPECIFIC T-WAVE ABNORMALITY BORDERLINE ECG Compared to prior tracing no significant change PREVIOUS TRACING : 11/11/2014 18.06 DOCTOR: Charlie Snell Interpretating Date/Time 12/15/2016 11:47:32
[2016-12-15] MEDS ORDERED: REGADENOSON INJ 0.4 MG/5 ML SYR ONE (13:37)
--- NOTE | 2016-12-15 15:04 | RADRPT ---
EXAM DATE/TIME: 12/15/2016 13:11 [facility] COMPARISON: No previous studies available for comparison. INDICATIONS : Dizziness. Coronary artery bypass graft. DOSE: 30.2 mCi Tc99m Myoview at stress. 10.1 mCi Tc99m Myoview at rest. 0.4 mg Lexiscan STRESS SYMPTOMS: Short of breath. EJECTION FRACTION: > 70% MEDICAL HISTORY : Hypertension. Cardiovascular disease Diabetes mellitus type 2. SURGICAL HISTORY : CABG Total knee replacement, right. ENCOUNTER: Initial ACUITY: 1 day PAIN SCALE: 0/10 LOCATION: chest TECHNIQUE: The patient underwent pharmacologic stress with infusion of prescribed dose. Continuous ECG tracing was monitored during stress. Gated SPECT imaging was performed after stress and conventional SPECT i maging was performed at rest. The examination was performed on a SPECT/CT scanner, both attenuation and non-corrected datasets were reviewed. FINDINGS: DISTRIBUTION: The maximum perfused segment at stress is in the anterolateral wall. PERFUSION STUDY: There is a small fixed defect involving the inferolateral wall near the apex. No reversible defects o bserved. GATED STUDY: There is intact wall motion and thickening without hypokinetic or dyskinetic segments. CONCLUSION: No reversible defects observed to suggest acute ischemia. RISK CATEGORY: low Kingsley Yuen Jr., MD on December 15, 2016 at 15:00 Board Certified Radiologist. This report was verified electronically.
--- NOTE | 2016-12-15 15:14 | HHI.DCPOC ---
Discharge Care Plan Diagnosis: (1) Dizziness (2) CAD (coronary artery disease), [place] coronary artery (3) DM type 2 (diabetes mellitus, type 2) (4) BPH (benign prostatic hyperplasia) (5) Hypertension Goals to Promote Your Health - Please followup with Dr. Murphy next week to followup on your 2D echo results - Please record your blood pressure and pulse while laying down and sitting up and standing at home and bring these results to your followup with Dr. Murphy to see if your medications may need adjusting. - Followup with your PCP, Dr. Boateng in 1 week as well, call for an appt. Directions to Meet Your Goals Take your medications as prescribed Follow your dietary instruction Follow activity as directed Keep your appointments as scheduled Take your immunizations and boosters as scheduled If your symptoms worsen call your PCP, if no PCP go to Urgent Care Center or Emergency Room Smoking is Dangerous to Your Health. Avoid second hand smoke Call the 24-hour hour crisis hotline for domestic abuse at Teresita Robbins Dec 15, 2016 15:14
--- NOTE | 2016-12-15 15:45 | ECHRPT ---
Indication: coronary atherosclerosis CONCLUSIONS Normal left ventricular size. Mild concentric left ventricular hypertrophy. The left ventricular systolic function is low normal with an estimated ejection fraction in the rang e of 50- 55%. Mitral annular calcification is present. Aortic valve sclerosis is present. There is mild to moderate tricuspid valve regurgitation. There is estimated mild pulmonary hypertension present ( 42 mmHg). BP: 167 / 78 HR: 66 Rhythm: Sinus MEASUREMENTS (Male / Female) Normal Values Technical Quality:Good 2D ECHO LV Diastolic Diameter PLAX 5.0 cm 4.2 - 5.9 / 3.9 - 5.3 cm LV Systolic Diameter PLAX 3.8 cm IVS Diastolic Thickness 0.8 cm 0.6 - 1.0 / 0.6 - 0.9 cm LVPW Diastolic Thickness 0.8 cm 0.6 - 1.0 / 0.6 - 0.9 cm LV Relative Wall Thickness 0.3 LA Systolic Diameter LX 3.5 cm 3.0 - 4.0 / 2.7 - 3.8 cm M-MODE Aortic Root Diameter MM 3.1 cm AV Cusp Separation MM 1.9 cm DOPPLER AV Peak Velocity 201.0 cm/s AV Peak Gradient 16.2 mmHg LVOT Peak Velocity 105.0 cm/s LVOT Peak Gradient 4.4 mmHg Mitral E Point Velocity 126.0 cm/s Mitral A Point Velocity 104.0 cm/s Mitral E to A Ratio 1.2 TR Peak Velocity 304.0 cm/s TR Peak Gradient 37.0 mmHg FINDINGS LEFT VENTRICLE Normal left ventricular size. Mild concentric left ventricular hypertrophy. The left ventricular systolic function is low normal with an estimated ejection fraction in the rang e of 50- 55%. RIGHT VENTRICLE Normal right ventricular size and systolic function. LEFT ATRIUM The left atrial size is normal. RIGHT ATRIUM The right atrial size is normal. ATRIAL SEPTUM Normal atrial septal thickness without atrial level shunting by limited color doppler interrogation. AORTA The aortic root and proximal ascending aorta are normal in size on limited imaging. MITRAL VALVE Mitral annular calcification is present. AORTIC VALVE Aortic valve sclerosis is present. TRICUSPID VALVE There is mild to moderate tricuspid valve regurgitation. There is estimated mild pulmonary hypertension present ( 42 mmHg). PULMONARY VALVE The pulmonary valve is not well visualized. VESSELS The inferior vena cava is normal in size. PERICARDIUM No pericardial effusion. Estevan Beckett MD (Electronically Signed) Final Date:15 December 2016 15:44
[2016-12-15 16:17] LABS: HEMOGLOBIN A1a 0.9 %; HEMOGLOBIN A1b 2.1 %; HEMOGLOBIN Ao 81.9 %; HEMOGLOBIN LA1C 2.6 %; HEMOGLOBIN P3 4.2 %
== END 2016-12-15 15:52 | disposition home or self-care (01) ==
LOC: NEPC 14:37 → NEDA 19:50 → NEPGCP 22:17
PROVIDERS: ADMIT Hospitalist; ATTEND Hospitalist
DX: R42 Dizziness and giddiness (principal); E78.5 Hyperlipidemia, unspecified; E11.9 Type 2 diabetes mellitus without complications; I25.10 Atherosclerotic heart disease of native coronary artery without angina pectoris; N40.0 Benign prostatic hyperplasia without lower urinary tract symptoms; I11.0 Hypertensive heart disease with heart failure; I50.9 Heart failure, unspecified; K21.9 Gastro-esophageal reflux disease without esophagitis; H40.9 Unspecified glaucoma; M19.90 Unspecified osteoarthritis, unspecified site; Z79.82 Long term (current) use of aspirin; Z95.1 Presence of aortocoronary bypass graft; Z79.899 Other long term (current) drug therapy; Z79.84 Long term (current) use of oral hypoglycemic drugs
CPT/HCPCS: 70450; 70544; 70551; 71020; 78452; 80048; 82550; 82948; 83036; 84484; 85025; 93005; 93017; 93306; 96372; 99285; A9502; G0378; J1815; J2785

== ENCOUNTER 2017-06-18 19:10 | Inpatient (IN) | payer OTHER ==
[~2017-06-18] VITALS: Ht 180.3 cm; Wt 99.3 kg
[~2017-06-18 19:10] MED LIST changes: +AMLO5TAB2 PO; +ASPI81TA16 PO; +CEROTAB2 PO; +CO Q100C9 PO; +CYAN1TAB24 PO; -DICL500 PO; -FEXO180 PO; +FISH100020 PO; +GLIM4TAB PO; -GLIP1TAB18 PO; -GLIP5 PO; -METF500 PO; +METO-309 PO; -METO50TA11 PO; +NAPR220C22 PO; -NORC7.5T PO; +PIOG15TA5 PO; +POTA99TA4 PO; +RAMI5CAP PO; -RAMI5CAP7 PO; -RANI150T PO; -STOO100C PO; -SULF400T20 PO; +TRAD5TAB PO; +TURMERIC 800 MG PO; +VITA100018 PO; -Z.0.WALKERFRONT
[2017-06-18 19:27] VITALS: BP 176/85; PULSE 82; RESP 16; TEMP 99.7; O2SAT 100
--- NOTE | 2017-06-18 20:35 | RADRPT ---
EXAM DATE/TIME: 06/18/2017 20:10 [facility] COMPARISON: No previous studies available for comparison. INDICATIONS : Right foot, 1st digit infection from blister. MEDICAL HISTORY : Diabetes mellitus type II. SURGICAL HISTORY : None. ENCOUNTER: Initial ACUITY: 1 week PAIN SCORE: 6/10 LOCATION: Right foot, 1st digit. FINDINGS: Examination of the first digit of the right foot demonstrates no evidence of fracture or dislocation. No radiopaque foreign bodies are seen. The soft tissues are intact. CONCLUSION: 1. No acute findings. Franco Agustin MD on June 18, 2017 at 20:34 Board Certified Radiologist. This report was verified electronically.
--- NOTE | 2017-06-18 21:39 | PD ---
HPI Chief Complaint: Skin Problem Time Seen by Provider: 21:28 Travel History International Travel<30 days: No Contact w/Intl Traveler<30days: No Traveled to known affect area: No History of Present Illness HPI 61-year-old male presents to the emergency department for evaluation of erythematous, swollen right great toe with red streak up the right foot. He also has erythema to the right fourth toe. Patient reports history of diabetes and diabetic neuropathy. He denies any fevers. He states that approximately one week ago, he hit his foot and lifted the toenail. He states a couple days after that, he accidentally burned his right great toe. He has been treating at home without success. He states he took 2 Cipro yesterday. Patient used to follow-up with quality control expert, but has not followed up in approximately a year. He denies any other symptoms or complaints at this time. Moderate severity. No exacerbating or alleviating factors. PFSH Past Medical History Arthritis: No Asthma: No Autoimmune Disease: No Blood Disorders: No Anxiety: No Depression: No Heart Rhythm Problems: No Cancer: Yes (skin cancer) Cardiovascular Problems: Yes High Cholesterol: No Chemotherapy: No Chest Pain: Yes Congestive Heart Failure: Yes COPD: No Cerebrovascular Accident: No Diabetes: Yes Diminished Hearing: No Endocrine: Yes Gastrointestinal Disorders: Yes (GERD) GERD: No Glaucoma: Yes Genitourinary: Yes (bph) Headaches: No Hepatitis: No Hiatal Hernia: Yes Hypertension: Yes Immune Disorder: No Kidney Stones: No Musculoskeletal: Yes (ARTHRITIS, LOW BACK PAIN, PAIN IN SHOULDERS, ) Neurologic: Yes (BILATERAL LEG NUMBNESS ) Psychiatric: No Reproductive: No Respiratory: Yes (CHF) Migraines: No Myocardial Infarction: No Radiation Therapy: No Renal Failure: No Seizures: No Sickle Cell Disease: No Sleep Apnea: No Thyroid Disease: No Ulcer: No Past Surgical History Abdominal Surgery: No AICD: No Appendectomy: No Arteriovenous Shunt: No Body Medical Devices: STENT L LEG FROM CARDIAC SURGERY STENTS IN CHEST FROM SURGERY Cardiac Surgery: Yes (CABG 5 VESSELS 2006) Cholecystectomy: No Coronary Artery Bypass Graft: Yes (5 BYPASS) Ear Surgery: No Endocrine Surgery: No Eye Surgery: No Genitourinary Surgery: No Gynecologic Surgery: No Insulin Pump: No Joint Replacement: No Oral Surgery: No Pacemaker: No Thoracic Surgery: Yes (R LUNG PUNCTURE IN THE PAST FROM CENTRAL LINE) Other Surgery: Yes (CABG 2006) Social History Alcohol Use: Yes (2-3 BEERS DAILY) Tobacco Use: No Substance Use: No (PT DENIES ) Allergies-Medications (Allergen,Severity, Reaction): Coded Allergies: metformin (Verified Allergy, Unknown, 12/14/16) clopidogrel (Unverified Adverse Reaction, Intermediate, Nausea/Vomiting, ) Reported Meds & Prescriptions Reported Meds & Active Scripts Active Reported Aleve (Naproxen Sodium) 220 Mg Capsule 220 Mg PO BID PRN Cerovite Senior (Multiple Vitamins W/ Minerals) 1 Tab Tab 1 Tab PO DAILY B12 (Cyanocobalamin) 1,000 Mcg Tab 1,000 Mcg PO HS Fish Oil 1000 mg ([place]-3 Fatty Acids) 1 Cap Cap 1,000 Mg PO BID [Turmeric 800MG] 800 Mg PO DAILY Potassium 99 Mg Tablet 99 Mg PO HS Vitamin D3 (Cholecalciferol) 1,000 Unit Tab 1,000 Units PO HS Glimepiride 4 Mg Tab 4 Mg PO DAILY Take with breakfast or first main meal Lopressor (Metoprolol Tartrate) 50 Mg Tab 50 Mg PO BID Tradjenta (Linagliptin) 5 Mg Tab 5 Mg PO DAILY Aspirin Adult Low Strength (Aspirin) 81 Mg Tabdr 81 Mg PO DAILY Pioglitazone (Pioglitazone HCl) 15 Mg Tab 15 Mg PO DAILY Ramipril 5 Mg Cap 5 Mg PO DAILY Amlodipine (Amlodipine Besylate) 5 Mg Tab 5 Mg PO DAILY Terazosin (Terazosin HCl) 2 Mg Cap 4 Mg PO HS Crestor (Rosuvastatin Calcium) 40 Mg Tab 40 Mg PO HS Co Q 10 (Coenzyme Q10 (Ubidecarenone)) 100 Mg Cap 100 Mg PO HS Review of Systems Except as stated in HPI: all other systems reviewed are Neg Physical Exam Narrative GENERAL: Well-nourished, well-developed male patient, afebrile. SKIN: Focused skin assessment warm/dry. Right great toe is erythematous and swollen with red streak up the right foot. Right fourth toe is also slightly erythematous. No obvious abscess or fluctuance on exam. HEAD: Normocephalic. Atraumatic. EYES: No scleral icterus. No injection or drainage. NECK: Supple, trachea midline. No JVD or lymphadenopathy. CARDIOVASCULAR: Regular rate and rhythm without murmurs, gallops, or rubs. Bilateral pedal pulses are 2+. RESPIRATORY: Breath sounds equal bilaterally. No accessory muscle use. Lungs sounds clear to auscultation. GASTROINTESTINAL: Abdomen soft, non-tender, nondistended. MUSCULOSKELETAL: No cyanosis, or edema. BACK: Nontender without obvious deformity. No CVA tenderness. Data Data Last Documented VS Vital Signs Date Time Temp Pulse Resp B/P (MAP) Pulse Ox O2 Delivery O2 Flow Rate FiO2 06/18/17 21:31 82 20 06/18/17 19:27 99.7 176/85 (115) 100 Orders Orders Toe (Min 2vws) (06/18/17 ) Complete Blood Count With Diff (06/18/17 19:30) Basic Metabolic Panel (Bmp) (06/18/17 19:30) Coag Profile (06/18/17 19:30) Blood Culture (06/18/17 19:30) C-Reactive Protein (Crp) (06/18/17 21:34) W[place]gren Sedimentation Rate (06/18/17 21:34) Lactic Acid Sepsis Protocol (06/18/17 21:34) Vancomycin Inj (Vancomycin Inj) (06/18/17 22:00) Piperacil-Tazo 3.375 Gm Premix (Zosyn 3. (06/18/17 22:00) Admit Order (Ed Use Only) (06/18/17 22:27) Labs Laboratory Tests Test 06/18/17 21:25 06/18/17 21:35 White Blood Count 9.8 TH/MM3 Red Blood Count 4.75 MIL/MM3 Hemoglobin 14.6 GM/DL Hematocrit 41.9 % Mean Corpuscular Volume 88.2 FL Mean Corpuscular Hemoglobin 30.8 PG Mean Corpuscular Hemoglobin Concent 34.9 % Red Cell Distribution Width 13.2 % Platelet Count 181 TH/MM3 Mean Platelet Volume 8.5 FL Neutrophils (%) (Auto) 74.0 % Lymphocytes (%) (Auto) 14.7 % Monocytes (%) (Auto) 9.7 % Eosinophils (%) (Auto) 1.1 % Basophils (%) (Auto) 0.5 % Neutrophils # (Auto) 7.2 TH/MM3 Lymphocytes # (Auto) 1.4 TH/MM3 Monocytes # (Auto) 0.9 TH/MM3 Eosinophils # (Auto) 0.1 TH/MM3 Basophils # (Auto) 0.0 TH/MM3 CBC Comment DIFF FINAL Differential Comment Prothrombin Time 10.0 SEC Prothromb Time International Ratio 1.0 RATIO Activated Partial Thromboplast Time 24.2 SEC Blood Urea Nitrogen 24 MG/DL Creatinine 1.18 MG/DL Random Glucose 150 MG/DL Calcium Level 9.2 MG/DL Sodium Level 133 MEQ/L Potassium Level 3.9 MEQ/L Chloride Level 98 MEQ/L Carbon Dioxide Level 28.1 MEQ/L Anion Gap 7 MEQ/L Estimat Glomerular Filtration Rate 63 ML/MIN Lactic Acid Level 1.3 mmol/L [facility] Medical Decision Making Medical Screen Exam Complete: Yes Emergency Medical Condition: Yes Medical Record Reviewed: Yes Differential Diagnosis Diabetic foot infection versus osteomyelitis versus sepsis Narrative Course 61-year-old male presents to the emergency department for evaluation of infection, pain, erythema to right great toe with a streak up the right foot. IV access obtained. CBC, BMP, lactic acid, CRP, sedimentation rate, blood cultures 2, x-ray of the toe are ordered and pending. CBC shows no acute abnormality. BMP shows hyponatremia of 133, glucose 150. Lactic acid is 1.3. CRP and ESR are pending. X-ray shows no acute findings. Patient is started on Vancomycin 1 gm IV, Zosyn 3.375 gm IV. [facility] is paged for admission. Dr. Vyas accepted admission. Diagnosis Primary Impression: Diabetic foot infection Additional Impression: DM type 2 (diabetes mellitus, type 2) Qualified Codes: E11.628 - Type 2 diabetes mellitus with other skin complications Admitting Information Admitting Physician Requests: Admit Nara Sterling Jun 18, 2017 21:39
[2017-06-18 21:48] LABS: AUTOMATED NEUTROPHIL # 7.2 TH/MM3 (1.8-7.7); BASOPHIL % 0.5 % (0.0-2.0); EOSINOPHIL # 0.1 TH/MM3 (0-0.4); EOSINOPHIL % 1.1 % (0.0-4.0); HEMATOCRIT 41.9 % (39.0-51.0); HEMOGLOBIN 14.6 GM/DL (13.0-17.0); LYMPH % 14.7 % (9.0-44.0); LYMPHOCYTE # 1.4 TH/MM3 (1.0-4.8); MEAN CELL VOLUME 88.2 FL (80.0-100.0); MEAN CORPUSCULAR HEMOGLOBIN 30.8 PG (27.0-34.0); MEAN CORPUSCULAR HGB CONC 34.9 % (32.0-36.0); MEAN PLATELET VOLUME 8.5 FL (7.0-11.0); MONO % 9.7 % (0.0-8.0); MONOCYTE # 0.9 TH/MM3 (0-0.9); PLATELET COUNT 181 TH/MM3 (150-450); RED BLOOD COUNT 4.75 MIL/MM3 (4.50-5.90); RED CELL DISTRIBUTION WIDTH 13.2 % (11.6-17.2); WHITE BLOOD COUNT 9.8 TH/MM3 (4.0-11.0)
[2017-06-18] MEDS ORDERED: PIPERACIL-TAZO 3.375 GM PREMIX 50 ML IV ONE (22:00)
[2017-06-18] MEDS ORDERED: VANCOMYCIN INJ 1,000 MG in SODIUM CHLOR 0.9% 250 ML INJ 250 ML IV ONE (22:00)
[2017-06-18 22:05] LABS: BICARBONATE 28.1 MEQ/L (21.0-32.0); CALCIUM 9.2 MG/DL (8.5-10.1); CREATININE 1.18 MG/DL (0.60-1.30)
[2017-06-18] MEDS ORDERED: GLUCAGON 1 MG/ML VIAL OTHER PRN (22:45)
[2017-06-18] MEDS ORDERED: DEXTROSE 50% IN WATER 50 ML VIAL(D50) IV PUSH PRN (22:45)
[2017-06-18] MEDS ORDERED: Vancomycin Consult Pharmacy 1 EA OTHER SCH (22:45)
[2017-06-18] MEDS ORDERED: ACETAMINOPHEN 325 MG TAB PO PRN (22:45)
[2017-06-18] MEDS ORDERED: SODIUM CHLORIDE 0.9% FLUSH 10 ML FLUSH IV FLUSH PRN (22:45)
[2017-06-18] MEDS ORDERED: NALOXONE HCL 0.4 MG/ML AMP IV PUSH PRN (22:45)
[2017-06-18] MEDS ORDERED: ONDANSETRON HCL 4 MG/2 ML VIAL IVP PRN (22:45)
--- NOTE | 2017-06-18 23:05 | HHI.HP ---
HPI Service [facility] Primary Care Physician Curtis Boateng DO Admission Diagnosis diabetic infection to right foot Diagnoses: Chief Complaint: right great toe pain and redness Travel History International Travel<30 Days: No Contact w/Intl Traveler <30 Da: No Traveled to Known Affected Are: No History of Present Illness 61 y/o male with a history of DM, HTN, CAD, HLD and diabetic neuropathy presented to the ED with complaints of increased pain to right great toe. He denies pain currently,but when he walks the pain is a 10/10, burning pain, with radiation up ankle and no associated symptoms. He states 1 week ago he caught his toe under a tree limb and ripped his toe nail up. He was cleaning it at home with peroxide and Epson salt. On Sunday he was working with metal and a piece of burning metal fell on his shoe and he did not feel it until he was home and noticed a hole in his sock. He eventually developed a blister that has now opened and scabbed over. He denies any chest pain, sob, fever or chills. He states his sugar has been running 250-300s at home because he has been out of all medications for the last 2 months since he has changed jobs. Review of Systems Except as stated in HPI: all other systems reviewed are Neg Past Family Social History Past Medical History DM Diabetic neuropathy CAD BPH HLD HTN Past Surgical History Cabg x 4 Right knee I&D 2017 Reported Medications Reported Meds & Active Scripts Active Reported Aleve (Naproxen Sodium) 220 Mg Capsule 220 Mg PO BID PRN Cerovite Senior (Multiple Vitamins W/ Minerals) 1 Tab Tab 1 Tab PO DAILY B12 (Cyanocobalamin) 1,000 Mcg Tab 1,000 Mcg PO HS Fish Oil 1000 mg ([place]-3 Fatty Acids) 1 Cap Cap 1,000 Mg PO BID [Turmeric 800MG] 800 Mg PO DAILY Potassium 99 Mg Tablet 99 Mg PO HS Vitamin D3 (Cholecalciferol) 1,000 Unit Tab 1,000 Units PO HS Glimepiride 4 Mg Tab 4 Mg PO DAILY Take with breakfast or first main meal Lopressor (Metoprolol Tartrate) 50 Mg Tab 50 Mg PO BID Tradjenta (Linagliptin) 5 Mg Tab 5 Mg PO DAILY Aspirin Adult Low Strength (Aspirin) 81 Mg Tabdr 81 Mg PO DAILY Pioglitazone (Pioglitazone HCl) 15 Mg Tab 15 Mg PO DAILY Ramipril 5 Mg Cap 5 Mg PO DAILY Amlodipine (Amlodipine Besylate) 5 Mg Tab 5 Mg PO DAILY Terazosin (Terazosin HCl) 2 Mg Cap 4 Mg PO HS Crestor (Rosuvastatin Calcium) 40 Mg Tab 40 Mg PO HS Co Q 10 (Coenzyme Q10 (Ubidecarenone)) 100 Mg Cap 100 Mg PO HS Allergies: Coded Allergies: metformin (Verified Allergy, Unknown, 12/14/16) clopidogrel (Unverified Adverse Reaction, Intermediate, Nausea/Vomiting, ) Active Ordered Medications Current Medications Medications (Trade) Dose Ordered Sig/[place] Route Start Time Stop Time Status Last Admin Vancomycin HCl 1000 mg/Sodium Chloride 250 ml @ 250 mls/hr ONCE ONCE IV 06/18/17 22:00 06/18/17 22:59 (NS Flush) 2 ml UNSCH PRN IV FLUSH 06/18/17 22:45 UNV (NS Flush) 2 ml BID IV FLUSH 06/19/17 09:00 UNV (Tylenol) 650 mg Q4H PRN PO 06/18/17 22:45 UNV (Zofran Inj) 4 mg Q6H PRN IVP 06/18/17 22:45 UNV (Narcan Inj) 0.4 mg UNSCH PRN IV PUSH 06/18/17 22:45 UNV Pharmacy Profile Note 0 ml @ 0 mls/hr UNSCH OTHER 06/18/17 22:45 Piperacillin Sod/ Tazobactam Sod 50 ml @ 100 mls/hr Q6H IV 06/19/17 04:00 UNV (D50w (Vial) Inj) 50 ml UNSCH PRN IV PUSH 06/18/17 22:45 UNV (Glucagon Inj) 1 mg UNSCH PRN OTHER 06/18/17 22:45 UNV (NovoLOG SUPPLEMENTAL SCALE) 1 ACHS SLIDING SCALE SQ 06/19/17 08:00 UNV Family History Dad: Heart disease, restless leg Mom: Heart disease Social History Tobacco use: Denies Alcohol use: 2 beers a day Illicit drug use: Denies Physical Exam Vital Signs Vital Signs Date Time Temp Pulse Resp B/P (MAP) Pulse Ox O2 Delivery O2 Flow Rate FiO2 06/18/17 21:31 82 20 06/18/17 19:27 99.7 82 16 176/85 (115) 100 Physical Exam GENERAL: This is a well-nourished, well-developed patient, in no apparent distress. SKIN: Right great toe with erythema, inner toe scab wound, no drainage HEAD: Atraumatic. Normocephalic. EYES: Pupils equal round and reactive. ENT: Nose without bleeding, purulent drainage or septal hematoma. Airway patent. NECK: Trachea midline. No JVD or lymphadenopathy. CARDIOVASCULAR: Regular rate and rhythm without murmurs, gallops, or rubs. RESPIRATORY: Clear to auscultation. Breath sounds equal bilaterally. No wheezes , rales, or rhonchi. GASTROINTESTINAL: Abdomen soft, non-tender, nondistended. MUSCULOSKELETAL: Extremities without clubbing, cyanosis, or edema. No calf tenderness. NEUROLOGICAL: Awake and alert. Motor and sensory grossly within normal limits. Normal speech. Laboratory Laboratory Tests Test 06/18/17 21:25 06/18/17 21:35 White Blood Count 9.8 Red Blood Count 4.75 Hemoglobin 14.6 Hematocrit 41.9 Mean Corpuscular Volume 88.2 Mean Corpuscular Hemoglobin 30.8 Mean Corpuscular Hemoglobin Concent 34.9 Red Cell Distribution Width 13.2 Platelet Count 181 Mean Platelet Volume 8.5 Neutrophils (%) (Auto) 74.0 Lymphocytes (%) (Auto) 14.7 Monocytes (%) (Auto) 9.7 Eosinophils (%) (Auto) 1.1 Basophils (%) (Auto) 0.5 Neutrophils # (Auto) 7.2 Lymphocytes # (Auto) 1.4 Monocytes # (Auto) 0.9 Eosinophils # (Auto) 0.1 Basophils # (Auto) 0.0 CBC Comment DIFF FINAL Differential Comment Erythrocyte Sedimentation Rate 44 Prothrombin Time 10.0 Prothromb Time International Ratio 1.0 Activated Partial Thromboplast Time 24.2 Blood Urea Nitrogen 24 Creatinine 1.18 Random Glucose 150 Calcium Level 9.2 Sodium Level 133 Potassium Level 3.9 Chloride Level 98 Carbon Dioxide Level 28.1 Anion Gap 7 Estimat Glomerular Filtration Rate 63 C-Reactive Protein 6.80 Lactic Acid Level 1.3 Date/Time Source Procedure Growth Status 06/18/17 21:25 Blood Peripheral Aerobic Blood Culture Pending Received 06/18/17 21:25 Blood Peripheral Anaerobic Blood Culture Pending Received Result Diagram: 06/18/17212406/18/172124 Caprindavion VTE Risk Assessment Caprini VTE Risk Assessment: Mod/High Risk (score >= 2) Caprini Risk Assessment Model Point Value = 1 Point Value = 2 Point Value = 3 Point Value = 5 Age 41-60 Minor surgery BMI > 25 kg/m2 Swollen legs Varicose veins or History of unexplained or recurrent spontaneous Oral contraceptives or hormone replacement Sepsis (< 1 month) Serious lung disease, including pneumonia (< 1 month) Abnormal pulmonary function Acute myocardial infarction Congestive heart failure (< 1 month) History of inflammatory bowel disease Medical patient at bed rest Age 61-74 Arthroscopic surgery Major open surgery (> 45 min) Laparoscopic surgery (> 45 min) Malignancy Confined to bed (> 72 hours) Immobilizing plaster cast Central venous access Age >= 75 History of VTE Family history of VTE Factor V Leiden Prothrombin [id number] Lupus anticoagulant Anticardiolipin antibodies Elevated serum homocysteine Heparin-induced thrombocytopenia Other congenital or acquired thrombophilia Stroke (< 1 month) Elective arthroplasty Hip, pelvis, or leg fracture Acute spinal cord injury (< 1 month) Prophylaxis Regimen Total Risk Factor Score Risk Level Prophylaxis Regimen 0-1 Low Early ambulation 2 Moderate Order ONE of the following: *Sequential Compression Device (SCD) *Heparin 5000 units SQ BID 3-4 Higher Order ONE of the following medications: *Heparin 5000 units SQ TID *Enoxaparin/Lovenox 40 mg SQ daily (WT < 150 kg, CrCl > 30 mL/min) *Enoxaparin/Lovenox 30 mg SQ daily (WT < 150 kg, CrCl > 10-29 mL/min) *Enoxaparin/Lovenox 30 mg SQ BID (WT < 150 kg, CrCl > 30 mL/min) AND/OR *Sequential Compression Device (SCD) 5 or more Highest Order ONE of the following medications: *Heparin 5000 units SQ TID (Preferred with Epidurals) *Enoxaparin/Lovenox 40 mg SQ daily (WT < 150 kg, CrCl > 30 mL/min) *Enoxaparin/Lovenox 30 mg SQ daily (WT < 150 kg, CrCl > 10-29 mL/min) *Enoxaparin/Lovenox 30 mg SQ BID (WT < 150 kg, CrCl > 30 mL/min) AND *Sequential Compression Device (SCD) Assessment and Plan Problem List: (1) Cellulitis ICD Code: L03.90 - Cellulitis, unspecified (2) CAD (coronary artery disease), [place] coronary artery ICD Code: I25.10 - Atherosclerotic heart disease of [place] coronary artery without angina pectoris Status: Chronic (3) Hypertension ICD Code: I10 - Essential (primary) hypertension Status: Chronic Assessment and Plan 61 y/o male with a history of DM, HTN, CAD, HLD and diabetic neuropathy presented to the ED with complaints of increased pain to right great toe. Cellulitis, right great toe Toe x ray reviewed and unremarkable -Consult podiatry for recommendations -MRI ordered r/o osteomyelitis -IV antibiotics: Zosyn and Vanco, with vanco pharmacy consult DM, chronic, uncontrolled -Accu checks with SSI -Diabetic diet -Hold oral medications while in hospital Hypertension, chronic -resume home medications, monitor vitals DVT prophylaxis: Heparin Discussed Condition With Patient, Nicki Hwang Jun 18, 2017 23:05
[2017-06-19] VITALS (8 sets, daily range): BP systolic 96–158; BP diastolic 53–84; PULSE 60–82; RESP 15–16; TEMP 97.3–99.5; O2SAT 96–98
[2017-06-19] MEDS ORDERED: VANCOMYCIN 1 GM/200 ML PREMIX IV ONE
[2017-06-19] MEDS: PIPERACIL-TAZO 3.375 GM PREMIX 50 ML IV SCH ×4 (05:11→22:19)
[2017-06-19 05:42] LABS: AUTOMATED NEUTROPHIL # 5.8 TH/MM3 (1.8-7.7); BASOPHIL % 0.6 % (0.0-2.0); EOSINOPHIL # 0.1 TH/MM3 (0-0.4); EOSINOPHIL % 1.3 % (0.0-4.0); HEMATOCRIT 39.1 % (39.0-51.0); LYMPH % 13.4 % (9.0-44.0); MEAN CELL VOLUME 87.2 FL (80.0-100.0); MEAN CORPUSCULAR HEMOGLOBIN 31.1 PG (27.0-34.0); MEAN CORPUSCULAR HGB CONC 35.7 % (32.0-36.0); MEAN PLATELET VOLUME 8.7 FL (7.0-11.0); MONO % 10.2 % (0.0-8.0); MONOCYTE # 0.8 TH/MM3 (0-0.9); NEUT % 74.5 % (16.0-70.0); PLATELET COUNT 154 TH/MM3 (150-450); RED BLOOD COUNT 4.48 MIL/MM3 (4.50-5.90); WHITE BLOOD COUNT 7.7 TH/MM3 (4.0-11.0)
[2017-06-19 06:04] LABS: BICARBONATE 25.6 MEQ/L (21.0-32.0); CALCIUM 8.4 MG/DL (8.5-10.1); CREATININE 0.9 MG/DL (0.60-1.30)
[2017-06-19] MEDS: HEPARIN SODIUM - SQ 10,000 UNITS/ML VIAL SQ SCH ×3 (06:17→22:17)
[2017-06-19] MEDS: INSULIN ASPART SUPPLEMENTAL SCALE SQ SCH ×4 (08:00→22:42)
[2017-06-19] MEDS: amLODIPine BESYLATE 5 MG TAB PO SCH (08:57)
[2017-06-19] MEDS: RAMIPRIL 5 MG CAP PO SCH (08:58)
[2017-06-19] MEDS: METOPROLOL TARTRATE 50 MG TAB PO SCH ×2 (08:58→22:19)
[2017-06-19] MEDS: ASPIRIN EC 81 MG TABEC PO SCH (08:58)
[2017-06-19] MEDS: SODIUM CHLORIDE 0.9% FLUSH 10 ML FLUSH IV FLUSH SCH ×2 (08:59→21:00)
[2017-06-19] MEDS: VANCOMYCIN 1,500 MG/NS 500 ML IV SCH ×2 (13:19)
--- NOTE | 2017-06-19 13:22 | HHI.PR ---
Subjective Remarks Patient reports he is feeling okay. He believes the area redness has improved but still having some discomfort at the foot and toe. Objective Vitals Vital Signs Date Time Temp Pulse Resp B/P (MAP) Pulse Ox O2 Delivery O2 Flow Rate FiO2 06/19/17 11:08 98.3 60 16 105/59 (74) 96 06/19/17 08:49 98.7 76 16 156/84 (108) 96 06/19/17 04:48 97.8 80 16 158/80 (106) 98 06/19/17 04:08 82 06/19/17 01:32 99.4 79 16 155/79 (104) 96 06/19/17 00:57 78 06/18/17 21:31 82 20 06/18/17 19:27 99.7 82 16 176/85 (115) 100 I/O 06/18/17 06/18/17 06/18/17 06/19/17 06/19/17 06/19/17 07:00 15:00 23:00 07:00 15:00 23:00 Intake Total 50 ml 50 ml Balance 50 ml 50 ml Intake IV Total 50 ml 50 ml # Voids 1 Result Diagram: 06/19/17 0522 06/19/17 0522 Imaging Last Impressions Toe X-Ray 06/18/17 0000 Signed Impressions: Service Date/Time: Sunday, June 18, 2017 20:10 - CONCLUSION: 1. No acute findings. Franco Agustin MD Objective Remarks GENERAL: This is a well-nourished, well-developed patient, in no apparent distress. CARDIOVASCULAR: Normal rate and regular rhythm without murmurs, gallops, or rubs. RESPIRATORY: Good respiratory efforts. Breath sounds equal and clear to auscultation bilaterally. GASTROINTESTINAL: Abdomen soft, non-tender, non-distended. Normal active bowel sounds MUSCULOSKELETAL: Medial side of the right toe has an area of ulceration that is dry. There is surrounding cellulitis and proximal lymphatic streaks up to the ankle. NEURO: Alert & Oriented x4 to person, place, time, situation. Moves all ext x4 PSYCH: Appropriate mood and affect. A/P Problem List: (1) Cellulitis ICD Code: L03.90 - Cellulitis, unspecified (2) CAD (coronary artery disease), [place] coronary artery ICD Code: I25.10 - Atherosclerotic heart disease of [place] coronary artery without angina pectoris Status: Chronic (3) Hypertension ICD Code: I10 - Essential (primary) hypertension Status: Chronic Assessment and Plan 61 y/o male with a history of DM, HTN, CAD, HLD and diabetic neuropathy presented to the ED with complaints of increased pain to right great toe. Cellulitis, right great toe Toe x ray reviewed and unremarkable -Podiatry consulted for recommendations -MRI ordered r/o osteomyelitis -IV antibiotics: Zosyn and Vanco, with vanco pharmacy consult DM, chronic, uncontrolled -Accu checks with SSI -Diabetic diet -Hold oral medications while in hospital Hypertension, chronic -resume home medications, monitor vitals DVT prophylaxis: Heparin Fran Florez MD Jun 19, 2017 13:22
[2017-06-19 16:31] LABS: HEMOGLOBIN A1C 10.1 % (4.3-6.0)
[2017-06-19] MEDS ORDERED: GADODIAMIDE PF 287 MG/ML 20 ML VIAL (for RAD MRI) IVCONTRAST ONE (19:46)
--- NOTE | 2017-06-19 20:56 | RADRPT ---
EXAM DATE/TIME: 06/19/2017 19:18 [place] COMPARISON: TOE RIGHT 1ST DIGIT(MIN 2VWS), June 18, 2017, 20:10. INDICATIONS : Osteomyelitis. Right great toe wound for 1 week. CONTRAST: 20 cc Omniscan (gadodiamide) IV MEDICAL HISTORY : Diabetes mellitus type 2. Hypertension. Congestive heart failure. SURGICAL HISTORY : CABG Right knee surgery. ENCOUNTER: Subsequent ACUITY: 1 week PAIN SCORE: 4/10 LOCATION: Right foot. TECHNIQUE: Multiplanar, multisequence MRI examination was performed without contrast and after the intravenous a dministration of gadolinium. FINDINGS: There is marrow edema involving the distal phalanx of the great toe as well as enhancement characteri stic of osteomyelitis. There is no evidence of abscess. The remainder of the foot is unremarkable. No tendon abnormality is identified. The plantar fascia is intact. CONCLUSION: Osteomyelitis distal phalanx great toe Danny Lancaster MD on June 19, 2017 at 20:52 Board Certified Radiologist. This report was verified electronically.
[2017-06-19] MEDS: TERAZOSIN HCL 1 MG CAP PO SCH (22:19)
[2017-06-19] MEDS: ATORVASTATIN 80 MG TAB PO SCH (22:19)
--- NOTE | 2017-06-19 23:31 | PD.CONS ---
History of Present Illness Service Foot and ankle surgery/podiatry Consult Requested By Reason for Consult Right hallux cellulitis with associated wound Primary Care Physician Curtis Boateng DO Diagnoses: History of Present Illness Podiatry consultation for this 61-year-old male with a history of diabetes, hypertension, or right great toe cellulitis with associated wound. Patient denies any pain at this time severely painful. Patient states that a week ago he caught his toe under a tree limb and it ripped his toenail. He has been using peroxide and Epson salt. Most recently she was working with metal and a piece of burning metal fell on his shoe. He denies any nausea vomiting fevers or chills. Review of Systems Constitutional: DENIES: Fatigue, Fever Eyes: DENIES: Blurred vision Respiratory: DENIES: Shortness of breath Cardiovascular: DENIES: Chest pain, Palpitations Musculoskeletal: COMPLAINS OF: Joint pain Neurologic: DENIES: Abnormal gait Psychiatric: DENIES: Anxiety, Confusion Past Family Social History Allergies: Coded Allergies: metformin (Verified Allergy, Unknown, 12/14/16) clopidogrel (Unverified Adverse Reaction, Intermediate, Nausea/Vomiting, ) Past Medical History As dictated in HPI Active Ordered Medications Current Medications Medications (Trade) Dose Ordered Sig/[place] Route Start Time Stop Time Status Last Admin (NS Flush) 2 ml UNSCH PRN IV FLUSH 06/18/17 22:45 (NS Flush) 2 ml BID IV FLUSH 06/19/17 09:00 06/19/17 08:59 (Tylenol) 650 mg Q4H PRN PO 06/18/17 22:45 (Zofran Inj) 4 mg Q6H PRN IVP 06/18/17 22:45 06/19/17 13:20 (Narcan Inj) 0.4 mg UNSCH PRN IV PUSH 06/18/17 22:45 Pharmacy Profile Note 0 ml @ 0 mls/hr UNSCH OTHER 06/18/17 22:45 Piperacillin Sod/ Tazobactam Sod 50 ml @ 100 mls/hr Q6H IV 06/19/17 04:00 06/19/17 22:19 (D50w (Vial) Inj) 50 ml UNSCH PRN IV PUSH 06/18/17 22:45 (Glucagon Inj) 1 mg UNSCH PRN OTHER 06/18/17 22:45 (NovoLOG SUPPLEMENTAL SCALE) 1 ACHS SLIDING SCALE SQ 06/19/17 08:00 06/19/17 22:42 (Norvasc) 5 mg DAILY PO 06/19/17 09:00 06/19/17 08:57 (Ecotrin Ec) 81 mg DAILY PO 06/19/17 09:00 06/19/17 08:58 (Lopressor) 50 mg BID PO 06/19/17 09:00 06/19/17 22:19 (Altace) 5 mg DAILY PO 06/19/17 09:00 06/19/17 08:58 (Hytrin) 4 mg HS PO 06/19/17 21:00 06/19/17 22:19 (Lipitor) 80 mg HS PO 06/19/17 21:00 06/19/17 22:19 (Heparin Inj) 5,000 units Q8HR SQ 06/19/17 06:00 06/19/17 22:17 (Flu (Quadrivalent) Vaccine Inj) 0.5 ml ONCE ONCE IM 06/20/17 10:00 06/20/17 10:01 Vancomycin HCl 1500 mg/Sodium Chloride 515 ml @ 257.5 mls/ hr Q12H IV 06/19/17 13:00 06/19/17 13:19 Miscellaneous Information SPECIFIC LAB TO BE DRAWN:VANCO TROUGH DATE TO... ONCE ONCE .XX 06/20/17 12:45 06/20/17 12:46 Physical Exam Vital Signs Vital Signs Date Time Temp Pulse Resp B/P (MAP) Pulse Ox O2 Delivery O2 Flow Rate FiO2 06/19/17 20:15 99.5 64 15 121/64 (83) 96 06/19/17 14:26 97.3 60 16 96/53 (67) 96 06/19/17 11:08 98.3 60 16 105/59 (74) 96 06/19/17 08:49 98.7 76 16 156/84 (108) 96 06/19/17 04:48 97.8 80 16 158/80 (106) 98 06/19/17 04:08 82 06/19/17 01:32 99.4 79 16 155/79 (104) 96 06/19/17 00:57 78 Physical Exam GENERAL: This is a well-nourished, well-developed patient, in no apparent distress. SKIN: Right hallux distal nail border wound HEAD: Atraumatic. EYES: Pupils equal round and reactive. ENT: Airway patent. NECK: Trachea midline. RESPIRATORY: Nonlabored breathing. MUSCULOSKELETAL:. Negative Homans sign bilaterally. NEUROLOGICAL: Awake and alert. Normal speech. Lower extremity physical exam: Vascular: Dorsalis pedis 1/4, posterior tibial 1/4. Capillary refill time within normal limits to digits 5 bilateral foot. Edema present right hallux Neuro: Gross sensation intact to bilateral lower extremity. Pinpoint sensation decreased. No hyperalgesia noted to bilateral lower extremity Dermatology: Increased erythema noted to right hallux extending into MPJ with streaking noted into midfoot and ankle. Right hallux medial border of nail ulceration noted with mild sanguinous/fibrotic drainage. No fluctuance or crepitus on palpation of right hallux. Onychomycosis noted of right hallux nail. Musculoskeletal: Tender to palpation to right hallux. Laboratory Laboratory Tests Test 06/19/17 05:22 White Blood Count 7.7 Red Blood Count 4.48 Hemoglobin 14.0 Hematocrit 39.1 Mean Corpuscular Volume 87.2 Mean Corpuscular Hemoglobin 31.1 Mean Corpuscular Hemoglobin Concent 35.7 Red Cell Distribution Width 13.0 Platelet Count 154 Mean Platelet Volume 8.7 Neutrophils (%) (Auto) 74.5 Lymphocytes (%) (Auto) 13.4 Monocytes (%) (Auto) 10.2 Eosinophils (%) (Auto) 1.3 Basophils (%) (Auto) 0.6 Neutrophils # (Auto) 5.8 Lymphocytes # (Auto) 1.0 Monocytes # (Auto) 0.8 Eosinophils # (Auto) 0.1 Basophils # (Auto) 0.0 CBC Comment DIFF FINAL Differential Comment Blood Urea Nitrogen 17 Creatinine 0.90 Random Glucose 228 Calcium Level 8.4 Sodium Level 134 Potassium Level 3.7 Chloride Level 100 Carbon Dioxide Level 25.6 Anion Gap 8 Estimat Glomerular Filtration Rate 86 Hemoglobin A1c 10.1 Date/Time Source Procedure Growth Status 06/18/17 21:25 Blood Peripheral Aerobic Blood Culture - Preliminary NO GROWTH IN 1 DAY Resulted 06/18/17 21:25 Blood Peripheral Anaerobic Blood Culture - Preliminary NO GROWTH IN 1 DAY Resulted Result Diagram: 06/19/17 0522 06/19/17 0522 Imaging Last Impressions Toe X-Ray 06/18/17 0000 Signed Impressions: Service Date/Time: Sunday, June 18, 2017 20:10 - CONCLUSION: 1. No acute findings. Franco Agustin MD Assessment and Plan Assessment and Plan 61-year-old male with right hallux infection/ulceration Patient examined and evaluated with all questions answered Discussed possible bedside debridement of ulceration to be performed tomorrow Will discuss MRI with patient tomorrow as MRI is suggestive of osteomyelitis Will discuss distal phalanx amputation versus possible bone biopsy Vascular studies to be completed prior to any surgical intervention Patient to continue IV antibiotics Will place wound care orders Wound care orders to consist of Santyl to medial hallux ulcer with moist to dry dressing Mecca Navarro DPM Jun 19, 2017 23:31
[2017-06-20] VITALS (7 sets, daily range): BP systolic 115–184; BP diastolic 61–90; PULSE 65–76; RESP 16–18; TEMP 98–98.4; O2SAT 94–98
[2017-06-20] MEDS: VANCOMYCIN 1,500 MG/NS 500 ML IV SCH ×4 (01:24→14:25)
[2017-06-20] MEDS: PIPERACIL-TAZO 3.375 GM PREMIX 50 ML IV SCH ×4 (03:47→20:17)
[2017-06-20] MEDS: HEPARIN SODIUM - SQ 10,000 UNITS/ML VIAL SQ SCH ×3 (05:31→20:17)
[2017-06-20] MEDS: COLLAGENASE OINT 30 GM TUBE TOPICAL SCH (09:00)
[2017-06-20] MEDS: amLODIPine BESYLATE 5 MG TAB PO SCH (09:00)
[2017-06-20] MEDS ORDERED: INFLUENZA VIRUS VACCINE (QUADRIVALENT) 0.5 ML SYR IM ONE (10:00)
[2017-06-20] MEDS: ASPIRIN EC 81 MG TABEC PO SCH (10:15)
[2017-06-20] MEDS: METOPROLOL TARTRATE 50 MG TAB PO SCH ×2 (10:15→20:16)
[2017-06-20] MEDS: RAMIPRIL 5 MG CAP PO SCH (10:15)
[2017-06-20] MEDS: SODIUM CHLORIDE 0.9% FLUSH 10 ML FLUSH IV FLUSH SCH ×2 (10:18→20:17)
[2017-06-20] MEDS: INSULIN ASPART SUPPLEMENTAL SCALE SQ SCH ×4 (10:18→21:54)
[2017-06-20] MEDS ORDERED: PHARMACY ORDERED LAB ONE (12:45)
--- NOTE | 2017-06-20 14:25 | HHI.PR ---
Subjective Remarks 61 y/o male with a history of DM, HTN, CAD, HLD and diabetic neuropathy presented to the ED with complaints of increased pain to right great toe. He denies pain currently,but when he walks the pain is a 10/10, burning pain, with radiation up ankle and no associated symptoms. He states 1 week ago he caught his toe under a tree limb and ripped his toe nail up. He was cleaning it at home with peroxide and Epson salt. On Sunday he was working with metal and a piece of burning metal fell on his shoe and he did not feel it until he was home and noticed a hole in his sock. He eventually developed a blister that has now opened and scabbed over. He denies any chest pain, sob, fever or chills. He states his sugar has been running 250-300s at home because he has been out of all medications for the last 2 months since he has changed jobs. 2- Patient reports he is feeling okay. He believes the area redness has improved but still having some discomfort at the foot and toe. 2 patient had MRI of the foot which is probable osteomyelitis of the great toe on the right We will get CTA angiogram of bilateral lower extremities to make sure has good flow to see if wound can heal Wants to try Neurontin for neuropathy and pain in legs A.m. labs Objective Vitals Vital Signs Date Time Temp Pulse Resp B/P (MAP) Pulse Ox O2 Delivery O2 Flow Rate FiO2 06/20/17 11:23 98.4 70 18 115/67 (83) 96 06/20/17 07:35 98.0 72 18 122/65 (84) 95 06/20/17 03:29 98.1 71 17 126/61 (82) 96 06/20/17 01:14 98.2 65 16 119/65 (83) 97 06/19/17 20:15 99.5 64 15 121/64 (83) 96 06/19/17 14:26 97.3 60 16 96/53 (67) 96 I/O 06/19/17 06/19/17 06/19/17 06/20/17 06/20/17 06/20/17 07:00 15:00 23:00 07:00 15:00 23:00 Intake Total 50 ml 50 ml 300 ml 1050 ml Output Total 400 ml Balance 50 ml 50 ml 300 ml 650 ml Intake Oral 300 ml IV Total 50 ml 50 ml 1050 ml Output Urine Total 400 ml # Voids 1 5 Result Diagram: 06/19/1722 06/19/17521 Other Results Laboratory Tests Test 06/18/17 21:25 06/18/17 21:35 06/19/17 05:22 06/20/17 14:05 White Blood Count 9.8 TH/MM3 7.7 TH/MM3 Red Blood Count 4.75 MIL/MM3 4.48 MIL/MM3 Hemoglobin 14.6 GM/DL 14.0 GM/DL Hematocrit 41.9 % 39.1 % Mean Corpuscular Volume 88.2 FL 87.2 FL Mean Corpuscular Hemoglobin 30.8 PG 31.1 PG Mean Corpuscular Hemoglobin Concent 34.9 % 35.7 % Red Cell Distribution Width 13.2 % 13.0 % Platelet Count 181 TH/MM3 154 TH/MM3 Mean Platelet Volume 8.5 FL 8.7 FL Neutrophils (%) (Auto) 74.0 % 74.5 % Lymphocytes (%) (Auto) 14.7 % 13.4 % Monocytes (%) (Auto) 9.7 % 10.2 % Eosinophils (%) (Auto) 1.1 % 1.3 % Basophils (%) (Auto) 0.5 % 0.6 % Neutrophils # (Auto) 7.2 TH/MM3 5.8 TH/MM3 Lymphocytes # (Auto) 1.4 TH/MM3 1.0 TH/MM3 Monocytes # (Auto) 0.9 TH/MM3 0.8 TH/MM3 Eosinophils # (Auto) 0.1 TH/MM3 0.1 TH/MM3 Basophils # (Auto) 0.0 TH/MM3 0.0 TH/MM3 CBC Comment DIFF FINAL DIFF FINAL Differential Comment Erythrocyte Sedimentation Rate 44 mm/hr Prothrombin Time 10.0 SEC Prothromb Time International Ratio 1.0 RATIO Activated Partial Thromboplast Time 24.2 SEC Blood Urea Nitrogen 24 MG/DL 17 MG/DL Creatinine 1.18 MG/DL 0.90 MG/DL Random Glucose 150 MG/DL 228 MG/DL Calcium Level 9.2 MG/DL 8.4 MG/DL Sodium Level 133 MEQ/L 134 MEQ/L Potassium Level 3.9 MEQ/L 3.7 MEQ/L Chloride Level 98 MEQ/L 100 MEQ/L Carbon Dioxide Level 28.1 MEQ/L 25.6 MEQ/L Anion Gap 7 MEQ/L 8 MEQ/L Estimat Glomerular Filtration Rate 63 ML/MIN 86 ML/MIN C-Reactive Protein 6.80 MG/DL Lactic Acid Level 1.3 mmol/L Hemoglobin A1c 10.1 % Imaging Last Impressions Foot MRI 06/19/17 0000 Signed Impressions: Service Date/Time: Monday, June 19, 2017 19:18 - CONCLUSION: Osteomyelitis distal phalanx great toe Danny Lancaster MD Toe X-Ray 06/18/17 0000 Signed Impressions: Service Date/Time: Sunday, June 18, 2017 20:10 - CONCLUSION: 1. No acute findings. Franco Agustin MD Objective Remarks GENERAL: Awake alert oriented talkative and cooperative appears to be in no acute distress SKIN: Warm and dry. Right foot is dressed HEAD: Atraumatic. Normocephalic. EYES: Pupils equal and round. No scleral icterus. No injection or drainage. Extraocular muscles intact ENT: No nasal bleeding or discharge. Mucous membranes pink and moist. Tongue is midline NECK: Trachea midline. No JVD. Neck is supple CARDIOVASCULAR: Regular rate and rhythm. S1-S2 no S3 or S4 RESPIRATORY: No accessory muscle use. Clear to auscultation. Breath sounds equal bilaterally. GASTROINTESTINAL: Abdomen soft, non-tender, nondistended. Hepatic and splenic margins not palpable. MUSCULOSKELETAL: Extremities without clubbing, cyanosis, or edema. No obvious deformities. Right foot is dressed NEUROLOGICAL: Awake and alert. No obvious cranial nerve deficits. Motor grossly within normal limits. Five out of 5 muscle strength in the arms and legs. Normal speech. PSYCHIATRIC: Appropriate mood and affect; insight and judgment normal. Medications and IVs Current Medications Vancomycin HCl 1000 mg/Sodium Chloride 250 ml @ 250 mls/hr ONCE ONCE IV Last administered on 06/18/17at 22:00; Start 06/18/17 at 22:00; Stop 06/18/17 at 23:00 ; Status DC Piperacillin Sod/ Tazobactam Sod 50 ml @ 100 mls/hr ONCE ONCE IV Last administered on 06/18/17at 22:00; Start 06/18/17 at 22:00; Stop 06/18/17 at 22:29 ; Status DC Sodium Chloride (NS Flush) 2 ml UNSCH PRN IV FLUSH FLUSH AFTER USING IV ACCESS ; Start 06/18/17 at 22:45 Sodium Chloride (NS Flush) 2 ml BID IV FLUSH Last administered on 06/20/17at 10: 18; Start 06/19/17 at 09:00 Acetaminophen (Tylenol) 650 mg Q4H PRN PO TEMP > 100.4; Start 06/18/17 at 22:45 Ondansetron HCl (Zofran Inj) 4 mg Q6H PRN IVP NAUSEA OR VOMITING Last administered on 06/19/17at 13:20; Start 06/18/17 at 22:45 Naloxone HCl (Narcan Inj) 0.4 mg UNSCH PRN IV PUSH SEE LABEL COMMENTS; Start at 22:45 Pharmacy Profile Note 0 ml @ 0 mls/hr UNSCH OTHER ; Start 06/18/17 at 22:45 Piperacillin Sod/ Tazobactam Sod 50 ml @ 100 mls/hr Q6H IV Last administered on 06/20/17at 10:17; Start 06/19/17 at 04:00 Dextrose (D50w (Vial) Inj) 50 ml UNSCH PRN IV PUSH HYPOGLYCEMIA-SEE COMMENTS; Start 06/18/17 at 22:45 Glucagon (Glucagon Inj) 1 mg UNSCH PRN OTHER HYPOGLYCEMIA-SEE COMMENTS; Start 06/18/17 at 22:45 Insulin Aspart (NovoLOG SUPPLEMENTAL SCALE) 1 ACHS SLIDING SCALE SQ Last administered on 06/20/17at 13:23; Start 06/19/17 at 08:00 Vancomycin/Sodium Chloride 200 ml @ 200 mls/hr ONCE ONCE IV Last administered on 06/19/17at 01:15; Start 06/19/17 at 00:00; Stop 06/19/17 at 00:59 ; Status DC Amlodipine Besylate (Norvasc) 5 mg DAILY PO Last administered on 06/19/17at 08: 57; Start 06/19/17 at 09:00 Aspirin (Ecotrin Ec) 81 mg DAILY PO Last administered on 06/20/17at 10:15; Start 06/19/17 at 09:00 Metoprolol Tartrate (Lopressor) 50 mg BID PO Last administered on 06/20/17at 10: 15; Start 06/19/17 at 09:00 Ramipril (Altace) 5 mg DAILY PO Last administered on 2/28/18at 10:15; Start at 09:00 Terazosin HCl (Hytrin) 4 mg HS PO Last administered on 06/19/17at 22:19; Start 06/19/17 at 21:00 Atorvastatin Calcium (Lipitor) 80 mg HS PO Last administered on 06/19/17at 22:19 ; Start 06/19/17 at 21:00 Heparin Sodium (Porcine) (Heparin Inj) 5,000 units Q8HR SQ Last administered on 06/20/17at 13:22; Start 06/19/17 at 06:00 Influenza Virus Vaccine (Flu (Quadrivalent) Vaccine Inj) 0.5 ml ONCE ONCE IM Last administered on 06/20/17 10:17; Start 06/20/17 at 10:00; Stop 06/20/17 at 10:01; Status DC Vancomycin HCl 1500 mg/Sodium Chloride 515 ml @ 257.5 mls/ hr Q12H IV Last administered on 06/20/17at 01:24; Start 06/19/17 at 13:00 Miscellaneous Information SPECIFIC LAB TO BE DRAWN:VANCO TROUGH DATE TO... ONCE ONCE .XX Last administered on 06/20/17at 14:05; Start 06/20/17 at 12:45; Stop 06/20/17 at 12:46; Status DC Gadodiamide (Omniscan Pf Inj) 20 ml STK-MED ONCE IVCONTRAST Last administered on 06/19/17at 19:46; Start 06/19/17 at 19:46; Stop 06/19/17 at 20:07; Status DC Collagenase (Santyl Oint) 1 applic DAILY TOPICAL ; Start 06/20/17 at 09:00 A/P Problem List: (1) Cellulitis ICD Code: L03.90 - Cellulitis, unspecified (2) CAD (coronary artery disease), campo coronary artery ICD Code: I25.10 - Atherosclerotic heart disease of campo coronary artery without angina pectoris Status: Chronic (3) Hypertension ICD Code: I10 - Essential (primary) hypertension Status: Chronic Assessment and Plan 61 y/o male with a history of DM, HTN, CAD, HLD and diabetic neuropathy presented to the ED with complaints of increased pain to right great toe. Cellulitis, right great toe Toe x ray reviewed and unremarkable -Podiatry consulted for recommendations -MRI ordered r/o osteomyelitis--appears to be positive for osteomyelitis of the right great toe -IV antibiotics: Zosyn and Vanco, with vanco pharmacy consult DM, chronic, uncontrolled -Accu checks with SSI -Diabetic diet -Hold oral medications while in hospital Hypertension, chronic -resume home medications, monitor vitals Neuropathy will start on Neurontin Noncompliance recommend that patient take medications when he leaves the hospital DVT prophylaxis: Heparin Discharge Planning Await angiogram Podiatry clearance Js Flowers DO Jun 20, 2017 14:25
[2017-06-20] MEDS ORDERED: IOHEXOL 350 MG/ML 10 ML VIAL (for RAD DIAG) IVCONTRAST ONE (14:57)
--- NOTE | 2017-06-20 16:26 | RADRPT ---
EXAM DATE/TIME: 06/20/2017 14:56 [facility] COMPARISON: No previous studies available for comparison. INDICATIONS : Right lower extremity wound, osteomyelistis. IV CONTRAST: 98 cc Omnipaque 350 (iohexol) IV RADIATION DOSE: 11.59 CTDIvol (mGy) MEDICAL HISTORY : Cardiovascular disease. Hypertension. Diabetes mellitus type 2.Skin cancer. SURGICAL HISTORY : None. ENCOUNTER: Initial ACUITY: 1 day PAIN SCALE: 5/10 LOCATION: Right foot. TECHNIQUE: Volumetric scanning was performed using a multi-row detector CT scanner. The data was post processed with a variety of visualization algorithms including full volume maximum intensity projection, multi -planar sliding thin slab reformation, curved planar reformation, and surface rendering techniques. Using automated exposure control and adjustment of the mA and/or kV according to patient size, radiat ion dose was kept as low as reasonably achievable to obtain optimal diagnostic quality images. DICO M format image data is available electronically for review and comparison. FINDINGS: Abdominal aorta: Minimal atherosclerotic calcification is present at the origin of the celiac and to lesser degree the SMA. There is no significant renal artery stenosis. Minimal plaque, both hard and soft are seen in the nondilated aorta. Right lower extremity: Calcification is seen at the origin of the right common iliac and external iliac not felt to be hemod ynamically significant. The right common femoral and profunda are widely patent. The popliteal hina ry is patent with 3 vessel trifurcation. Minimal trifurcation breakup is evident with the anterior t ibial artery providing most of the runoff to the foot. The peroneal artery and posterior tibial show moderate trifurcation breakup. Parts of the plantar arch are reconstituted. Left lower extremity: ; Minimal calcification is seen in aorta, and left common iliac, iliac disease is borderline signifi cant. The external iliac and common femoral patent. The superficial femoral artery and profunda are patent with minimal geniculate collaterals around the knee. The popliteal artery is patent with a s mall three-vessel trifurcation. The calcified posterior tibial artery and peroneal artery show mode rate trifurcation breakup of the mid calf. The anterior tibial artery is reconstituted at the ankle. Segments of the plantar arch are identified. Ancillary findings: The liver, spleen and pancreas are unremarkable. The adrenal glands appear normal. There is symmetr ical renal function with 278 mm stones lower pole of the right kidney. The prominent renal pelvis. There occasional on expected course of either the right or the left ureter. In the pelvis prostate is prominent. Prosthetic desiccation are evident. CONCLUSION: Trifurcation disease bilaterally worse on the left, the affected side than the right, the side with t he wound. Plantar arch is poorly formed probably by the anterior tibial artery. The posterior tibial origin pr ovide significant runoff to the foot. Js Martin MD FACR on June 20, 2017 at 16:16 Board Certified Radiologist. This report was verified electronically.
[2017-06-20] MEDS: GABAPENTIN 300 MG CAP PO SCH (20:16)
[2017-06-20] MEDS: ATORVASTATIN 80 MG TAB PO SCH (20:16)
[2017-06-20] MEDS: TERAZOSIN HCL 1 MG CAP PO SCH (20:41)
[2017-06-20] MEDS ORDERED: MAGNESIUM HYDROXIDE SUSP 30 ML CUP PO PRN (21:30)
[2017-06-20] MEDS: DOCUSATE SODIUM 100 MG CAP PO SCH (22:24)
[2017-06-21] VITALS (7 sets, daily range): BP systolic 113–169; BP diastolic 63–81; PULSE 64–78; RESP 14–20; TEMP 97.8–99.3; O2SAT 94–98
[2017-06-21] MEDS: VANCOMYCIN 1,500 MG/NS 500 ML IV SCH ×4 (00:55→14:37)
[2017-06-21] MEDS: HEPARIN SODIUM - SQ 10,000 UNITS/ML VIAL SQ SCH ×3 (05:13→21:18)
[2017-06-21] MEDS: PIPERACIL-TAZO 3.375 GM PREMIX 50 ML IV SCH ×4 (05:13→22:28)
[2017-06-21 07:19] LABS: AUTOMATED NEUTROPHIL # 4.3 TH/MM3 (1.8-7.7); BASOPHIL % 0.7 % (0.0-2.0); EOSINOPHIL # 0.1 TH/MM3 (0-0.4); EOSINOPHIL % 1.7 % (0.0-4.0); HEMATOCRIT 36.6 % (39.0-51.0); HEMOGLOBIN 12.9 GM/DL (13.0-17.0); LYMPH % 17.2 % (9.0-44.0); LYMPHOCYTE # 1.1 TH/MM3 (1.0-4.8); MEAN CELL VOLUME 87.5 FL (80.0-100.0); MEAN CORPUSCULAR HEMOGLOBIN 30.8 PG (27.0-34.0); MEAN CORPUSCULAR HGB CONC 35.2 % (32.0-36.0); MEAN PLATELET VOLUME 8.6 FL (7.0-11.0); MONO % 10.8 % (0.0-8.0); MONOCYTE # 0.7 TH/MM3 (0-0.9); NEUT % 69.6 % (16.0-70.0); PLATELET COUNT 165 TH/MM3 (150-450); RED BLOOD COUNT 4.18 MIL/MM3 (4.50-5.90); RED CELL DISTRIBUTION WIDTH 13.1 % (11.6-17.2); WHITE BLOOD COUNT 6.2 TH/MM3 (4.0-11.0)
[2017-06-21 07:26] LABS: ALBUMIN 2.7 GM/DL (3.4-5.0); ALT (GPT) 10 U/L (12-78); AST (GOT) 11 U/L (15-37); BLOOD UREA NITROGEN 17 MG/DL (7-18); CALCIUM 8.6 MG/DL (8.5-10.1); CHLORIDE 103 MEQ/L (98-107); GLOMERULAR FILTRATION RATE 56 ML/MIN (>89); GLUCOSE,RANDOM 169 MG/DL (74-106); MAGNESIUM 2.1 MG/DL (1.5-2.5); PHOSPHORUS 4.2 MG/DL (2.5-4.9); SODIUM (NA) 136 MEQ/L (136-145)
[2017-06-21 07:34] LABS: ALKALINE PHOSPHATASE 78 U/L (45-117); FREE T4 1.21 NG/DL (0.76-1.46); TOTAL BILIRUBIN ADULT 0.9 MG/DL (0.2-1.0); TOTAL PROTEIN 6.3 GM/DL (6.4-8.2)
[2017-06-21] MEDS: amLODIPine BESYLATE 5 MG TAB PO SCH (09:00)
[2017-06-21] MEDS: RAMIPRIL 5 MG CAP PO SCH (09:32)
[2017-06-21] MEDS: METOPROLOL TARTRATE 50 MG TAB PO SCH ×2 (09:33→21:19)
[2017-06-21] MEDS: ASPIRIN EC 81 MG TABEC PO SCH (09:33)
[2017-06-21] MEDS: DOCUSATE SODIUM 100 MG CAP PO SCH ×2 (09:33→21:19)
[2017-06-21] MEDS: SODIUM CHLORIDE 0.9% FLUSH 10 ML FLUSH IV FLUSH SCH ×2 (09:33→21:19)
[2017-06-21] MEDS: INSULIN ASPART SUPPLEMENTAL SCALE SQ SCH ×4 (09:33→21:23)
[2017-06-21] MEDS: COLLAGENASE OINT 30 GM TUBE TOPICAL SCH (09:36)
--- NOTE | 2017-06-21 09:45 | HHI.PR ---
Subjective Remarks 61 y/o male with a history of DM, HTN, CAD, HLD and diabetic neuropathy presented to the ED with complaints of increased pain to right great toe. He denies pain currently,but when he walks the pain is a 10/10, burning pain, with radiation up ankle and no associated symptoms. He states 1 week ago he caught his toe under a tree limb and ripped his toe nail up. He was cleaning it at home with peroxide and Epson salt. On Sunday he was working with metal and a piece of burning metal fell on his shoe and he did not feel it until he was home and noticed a hole in his sock. He eventually developed a blister that has now opened and scabbed over. He denies any chest pain, sob, fever or chills. He states his sugar has been running 250-300s at home because he has been out of all medications for the last 2 months since he has changed jobs. 2-27 Patient reports he is feeling okay. He believes the area redness has improved but still having some discomfort at the foot and toe. 2-28 patient had MRI of the foot which is probable osteomyelitis of the great toe on the right We will get CTA angiogram of bilateral lower extremities to make sure has good flow to see if wound can heal Wants to try Neurontin for neuropathy and pain in legs A.m. labs 3-1 patient states he slept better with the Neurontin last night Had the angiogram yesterday results have been reviewed Patient to have evaluation regarding the right foot with podiatry later today Continue on vancomycin and Zosyn A.m. labs Discussed with patient and RN Objective Vitals Vital Signs Date Time Temp Pulse Resp B/P (MAP) Pulse Ox O2 Delivery O2 Flow Rate FiO2 06/21/17 08:19 98.3 78 18 113/63 (80) 94 06/21/17 04:38 98.0 72 14 136/67 (90) 96 06/21/17 00:16 97.8 70 16 138/67 (90) 98 06/20/17 20:19 74 18 94 06/20/17 19:23 98.0 76 16 165/68 (100) 98 06/20/17 15:36 98.4 66 18 137/69 (91) 98 06/20/17 11:23 98.4 70 18 115/67 (83) 96 I/O 06/20/17 06/20/17 06/20/17 06/21/17 06/21/17 06/21/17 07:00 15:00 23:00 07:00 15:00 23:00 Intake Total 300 ml 1050 ml 500 ml Output Total 400 ml 400 ml 600 ml Balance 300 ml 650 ml 100 ml -600 ml Intake Oral 300 ml IV Total 1050 ml 500 ml Output Urine Total 400 ml 400 ml 600 ml # Voids 5 4 Result Diagram: 06/21/17 0555 06/21/17 0555 Other Results Laboratory Tests Test 06/18/17 21:25 06/18/17 21:35 06/19/17 05:22 06/20/17 14:05 White Blood Count 9.8 TH/MM3 7.7 TH/MM3 Red Blood Count 4.75 MIL/MM3 4.48 MIL/MM3 Hemoglobin 14.6 GM/DL 14.0 GM/DL Hematocrit 41.9 % 39.1 % Mean Corpuscular Volume 88.2 FL 87.2 FL Mean Corpuscular Hemoglobin 30.8 PG 31.1 PG Mean Corpuscular Hemoglobin Concent 34.9 % 35.7 % Red Cell Distribution Width 13.2 % 13.0 % Platelet Count 181 TH/MM3 154 TH/MM3 Mean Platelet Volume 8.5 FL 8.7 FL Neutrophils (%) (Auto) 74.0 % 74.5 % Lymphocytes (%) (Auto) 14.7 % 13.4 % Monocytes (%) (Auto) 9.7 % 10.2 % Eosinophils (%) (Auto) 1.1 % 1.3 % Basophils (%) (Auto) 0.5 % 0.6 % Neutrophils # (Auto) 7.2 TH/MM3 5.8 TH/MM3 Lymphocytes # (Auto) 1.4 TH/MM3 1.0 TH/MM3 Monocytes # (Auto) 0.9 TH/MM3 0.8 TH/MM3 Eosinophils # (Auto) 0.1 TH/MM3 0.1 TH/MM3 Basophils # (Auto) 0.0 TH/MM3 0.0 TH/MM3 CBC Comment DIFF FINAL DIFF FINAL Differential Comment Erythrocyte Sedimentation Rate 44 mm/hr Prothrombin Time 10.0 SEC Prothromb Time International Ratio 1.0 RATIO Activated Partial Thromboplast Time 24.2 SEC Blood Urea Nitrogen 24 MG/DL 17 MG/DL Creatinine 1.18 MG/DL 0.90 MG/DL Random Glucose 150 MG/DL 228 MG/DL Calcium Level 9.2 MG/DL 8.4 MG/DL Sodium Level 133 MEQ/L 134 MEQ/L Potassium Level 3.9 MEQ/L 3.7 MEQ/L Chloride Level 98 MEQ/L 100 MEQ/L Carbon Dioxide Level 28.1 MEQ/L 25.6 MEQ/L Anion Gap 7 MEQ/L 8 MEQ/L Estimat Glomerular Filtration Rate 63 ML/MIN 86 ML/MIN C-Reactive Protein 6.80 MG/DL Lactic Acid Level 1.3 mmol/L Hemoglobin A1c 10.1 % Vancomycin Level Trough 15.7 MCG/ML Test 06/21/17 05:55 White Blood Count 6.2 TH/MM3 Red Blood Count 4.18 MIL/MM3 Hemoglobin 12.9 GM/DL Hematocrit 36.6 % Mean Corpuscular Volume 87.5 FL Mean Corpuscular Hemoglobin 30.8 PG Mean Corpuscular Hemoglobin Concent 35.2 % Red Cell Distribution Width 13.1 % Platelet Count 165 TH/MM3 Mean Platelet Volume 8.6 FL Neutrophils (%) (Auto) 69.6 % Lymphocytes (%) (Auto) 17.2 % Monocytes (%) (Auto) 10.8 % Eosinophils (%) (Auto) 1.7 % Basophils (%) (Auto) 0.7 % Neutrophils # (Auto) 4.3 TH/MM3 Lymphocytes # (Auto) 1.1 TH/MM3 Monocytes # (Auto) 0.7 TH/MM3 Eosinophils # (Auto) 0.1 TH/MM3 Basophils # (Auto) 0.0 TH/MM3 CBC Comment DIFF FINAL Differential Comment Blood Urea Nitrogen 17 MG/DL Creatinine 1.30 MG/DL Random Glucose 169 MG/DL Total Protein 6.3 GM/DL Albumin 2.7 GM/DL Calcium Level 8.6 MG/DL Phosphorus Level 4.2 MG/DL Magnesium Level 2.1 MG/DL Alkaline Phosphatase 78 U/L Aspartate Amino Transf (AST/SGOT) 11 U/L Alanine Aminotransferase (ALT/SGPT) 10 U/L Total Bilirubin 0.9 MG/DL Sodium Level 136 MEQ/L Potassium Level 3.9 MEQ/L Chloride Level 103 MEQ/L Carbon Dioxide Level 25.0 MEQ/L Anion Gap 8 MEQ/L Estimat Glomerular Filtration Rate 56 ML/MIN Free Thyroxine 1.21 NG/DL Thyroid Stimulating Hormone 3rd Gen 2.420 uIU/ML Imaging Last Impressions Aorta w/Runoff CTA 06/20/17 0000 Signed Impressions: Service Date/Time: Tuesday, June 20, 2017 14:56 - CONCLUSION: Trifurcation disease bilaterally worse on the left, the affected side than the right, the side with the wound. Plantar arch is poorly formed probably by the anterior tibial artery. The posterior tibial origin provide significant runoff to the foot. Js Martin MD FACR Foot MRI 06/19/17 0000 Signed Impressions: Service Date/Time: Monday, June 19, 2017 19:18 - CONCLUSION: Osteomyelitis distal phalanx great toe Danny Lancaster MD Toe X-Ray 06/18/17 0000 Signed Impressions: Service Date/Time: Sunday, June 18, 2017 20:10 - CONCLUSION: 1. No acute findings. Franco Agustin MD Objective Remarks GENERAL: Awake alert oriented talkative and cooperative appears to be in no acute distress SKIN: Warm and dry. Right foot is dressed HEAD: Atraumatic. Normocephalic. EYES: Pupils equal and round. No scleral icterus. No injection or drainage. Extraocular muscles intact ENT: No nasal bleeding or discharge. Mucous membranes pink and moist. Tongue is midline NECK: Trachea midline. No JVD. Neck is supple CARDIOVASCULAR: Regular rate and rhythm. S1-S2 no S3 or S4 RESPIRATORY: No accessory muscle use. Clear to auscultation. Breath sounds equal bilaterally. GASTROINTESTINAL: Abdomen soft, non-tender, nondistended. Hepatic and splenic margins not palpable. MUSCULOSKELETAL: Extremities without clubbing, cyanosis, or edema. No obvious deformities. Right foot is dressed NEUROLOGICAL: Awake and alert. No obvious cranial nerve deficits. Motor grossly within normal limits. Five out of 5 muscle strength in the arms and legs. Normal speech. PSYCHIATRIC: Appropriate mood and affect; insight and judgment normal. Medications and IVs Current Medications Vancomycin HCl 1000 mg/Sodium Chloride 250 ml @ 250 mls/hr ONCE ONCE IV Last administered on 06/18/17at 22:00; Start 06/18/17 at 22:00; Stop 06/18/17 at 23:00 ; Status DC Piperacillin Sod/ Tazobactam Sod 50 ml @ 100 mls/hr ONCE ONCE IV Last administered on 06/18/17at 22:00; Start 06/18/17 at 22:00; Stop 06/18/17 at 22:29 ; Status DC Sodium Chloride (NS Flush) 2 ml UNSCH PRN IV FLUSH FLUSH AFTER USING IV ACCESS ; Start 06/18/17 at 22:45 Sodium Chloride (NS Flush) 2 ml BID IV FLUSH Last administered on 06/20/17at 20: 17; Start 06/19/17 at 09:00 Acetaminophen (Tylenol) 650 mg Q4H PRN PO TEMP > 100.4; Start 06/18/17 at 22:45 Ondansetron HCl (Zofran Inj) 4 mg Q6H PRN IVP NAUSEA OR VOMITING Last administered on 06/19/17at 13:20; Start 06/18/17 at 22:45 Naloxone HCl (Narcan Inj) 0.4 mg UNSCH PRN IV PUSH SEE LABEL COMMENTS; Start at 22:45 Pharmacy Profile Note 0 ml @ 0 mls/hr UNSCH OTHER ; Start 06/18/17 at 22:45 Piperacillin Sod/ Tazobactam Sod 50 ml @ 100 mls/hr Q6H IV Last administered on 06/21/17at 05:13; Start 06/19/17 at 04:00 Dextrose (D50w (Vial) Inj) 50 ml UNSCH PRN IV PUSH HYPOGLYCEMIA-SEE COMMENTS; Start 06/18/17 at 22:45 Glucagon (Glucagon Inj) 1 mg UNSCH PRN OTHER HYPOGLYCEMIA-SEE COMMENTS; Start 06/18/17 at 22:45 Insulin Aspart (NovoLOG SUPPLEMENTAL SCALE) 1 ACHS SLIDING SCALE SQ Last administered on 06/20/17at 21:54; Start 06/19/17 at 08:00 Vancomycin/Sodium Chloride 200 ml @ 200 mls/hr ONCE ONCE IV Last administered on 06/19/17at 01:15; Start 06/19/17 at 00:00; Stop 06/19/17 at 00:59 ; Status DC Amlodipine Besylate (Norvasc) 5 mg DAILY PO Last administered on 06/19/17at 08: 57; Start 06/19/17 at 09:00 Aspirin (Ecotrin Ec) 81 mg DAILY PO Last administered on 06/20/17at 10:15; Start 06/19/17 at 09:00 Metoprolol Tartrate (Lopressor) 50 mg BID PO Last administered on 06/20/17 20: 16; Start 06/19/17 at 09:00 Ramipril (Altace) 5 mg DAILY PO Last administered on 06/20/17 10:15; Start at 09:00 Terazosin HCl (Hytrin) 4 mg HS PO Last administered on 06/20/17at 20:41; Start 06/19/17 at 21:00 Atorvastatin Calcium (Lipitor) 80 mg HS PO Last administered on 06/20/17 20:16 ; Start 06/19/17 at 21:00 Heparin Sodium (Porcine) (Heparin Inj) 5,000 units Q8HR SQ Last administered on 06/21/17 05:13; Start 06/19/17 at 06:00 Influenza Virus Vaccine (Flu (Quadrivalent) Vaccine Inj) 0.5 ml ONCE ONCE IM Last administered on 06/20/17 10:17; Start 06/20/17 at 10:00; Stop 06/20/17 at 10:01; Status DC Vancomycin HCl 1500 mg/Sodium Chloride 515 ml @ 257.5 mls/ hr Q12H IV Last administered on 06/21/17 00:55; Start 06/19/17 at 13:00 Miscellaneous Information SPECIFIC LAB TO BE DRAWN:VANCO TROUGH DATE TO... ONCE ONCE .XX Last administered on 06/20/17 14:05; Start 06/20/17 at 12:45; Stop 06/20/17 at 12:46; Status DC Gadodiamide (Omniscan Pf Inj) 20 ml STK-MED ONCE IVCONTRAST Last administered on 06/19/17at 19:46; Start 06/19/17 at 19:46; Stop 06/19/17 at 20:07; Status DC Collagenase (Santyl Oint) 1 applic DAILY TOPICAL ; Start 06/20/17 at 09:00 Gabapentin (Neurontin) 300 mg HS PO Last administered on 06/20/17at 20:16; Start 06/20/17 at 21:00 Iohexol (Omnipaque 350 Inj) 96 ml STK-MED ONCE IVCONTRAST Last administered on 06/20/17at 15:01; Start 06/20/17 at 14:57; Stop 06/20/17 at 14:58; Status DC Miscellaneous Information SPECIFIC LAB TO BE DRAWN:VANCOMYCIN TROUGH DATE TO... ONCE ONCE .XX ; Start 06/22/17 at 12:45; Stop 06/22/17 at 12:46 Docusate Sodium (Colace) 100 mg BID PO Last administered on 06/20/17at 22:24; Start 06/20/17 at 21:30 Magnesium Hydroxide (Milk Of Jese Sloan) 30 ml Q6H PRN PO CONSTIPATION; Start 06/20/17 at 21:30 Miscellaneous Information SPECIFIC LAB TO BE DRAWN:VANCOMYCIN TROUGH DATE TO... ONCE ONCE .XX ; Start 06/21/17 at 12:45; Stop 06/21/17 at 12:46 A/P Problem List: (1) Cellulitis ICD Code: L03.90 - Cellulitis, unspecified (2) CAD (coronary artery disease), [place] coronary artery ICD Code: I25.10 - Atherosclerotic heart disease of [place] coronary artery without angina pectoris Status: Chronic (3) Hypertension ICD Code: I10 - Essential (primary) hypertension Status: Chronic Assessment and Plan 61 y/o male with a history of DM, HTN, CAD, HLD and diabetic neuropathy presented to the ED with complaints of increased pain to right great toe. Cellulitis, right great toe Toe x ray reviewed and unremarkable -Podiatry consulted for recommendations -MRI ordered r/o osteomyelitis--appears to be positive for osteomyelitis of the right great toe -IV antibiotics: Zosyn and Vanco, with vanco pharmacy consult Monitor renal function DM, chronic, uncontrolled -Accu checks with SSI -Diabetic diet -Hold oral medications while in hospital Hypertension, chronic -resume home medications, monitor vitals Renal insufficiency -monitor renal functions -a.m. labs Neuropathy will start on Neurontin Noncompliance recommend that patient take medications when he leaves the hospital DVT prophylaxis: Heparin Discharge Planning Podiatry clearance Js Flowers DO Jun 21, 2017 09:45
[2017-06-21 11:03] LABS: HEMOGLOBIN A1C 10.1 % (4.3-6.0)
[2017-06-21] MEDS ORDERED: PHARMACY ORDERED LAB ONE (12:45)
[2017-06-21] MEDS ORDERED: LIDOCAINE HCL 2% 20 ML VIAL OTHER ONE (15:00)
[2017-06-21] MEDS ORDERED: LIDOCAINE HCL 1% 20 ML VIAL OTHER ONE (15:00)
[2017-06-21] MEDS: ATORVASTATIN 80 MG TAB PO SCH (21:19)
[2017-06-21] MEDS: GABAPENTIN 300 MG CAP PO SCH (21:19)
[2017-06-21] MEDS: TERAZOSIN HCL 1 MG CAP PO SCH (21:23)
--- NOTE | 2017-06-21 23:25 | HHI.PR ---
Subjective Remarks Patient seen bedside this evening. present at bedside as well. States they are concerned as toe has not improved. Patient relates that he has had multiple open blisters and trauma to right hallux. Objective Vital Signs Date Time Temp Pulse Resp B/P (MAP) Pulse Ox O2 Delivery O2 Flow Rate FiO2 06/21/17 20:00 98.5 74 18 169/81 (110) 96 06/21/17 18:30 Room Air 06/21/17 17:45 99.3 69 20 139/68 (91) 96 06/21/17 16:00 98.9 69 18 146/71 (96) 95 06/21/17 12:04 98.6 64 18 115/64 (81) 98 06/21/17 08:19 98.3 78 18 113/63 (80) 94 06/21/17 04:38 98.0 72 14 136/67 (90) 96 06/21/17 00:16 97.8 70 16 138/67 (90) 98 I/O 06/21/17 06/21/17 06/21/17 06/22/17 06/22/17 06/22/17 07:00 15:00 23:00 07:00 15:00 23:00 Output Total 600 ml Balance -600 ml Output Urine Total 600 ml # Voids 4 Result Diagram: 06/21/17 0555 06/21/17 0555 Imaging Last Impressions Aorta w/Runoff CTA 06/20/17 0000 Signed Impressions: Service Date/Time: Tuesday, June 20, 2017 14:56 - CONCLUSION: Trifurcation disease bilaterally worse on the left, the affected side than the right, the side with the wound. Plantar arch is poorly formed probably by the anterior tibial artery. The posterior tibial origin provide significant runoff to the foot. Js Martin MD FACR Foot MRI 06/19/17 0000 Signed Impressions: Service Date/Time: Monday, June 19, 2017 19:18 - CONCLUSION: Osteomyelitis distal phalanx great toe Danny Lancaster MD Toe X-Ray 06/18/17 0000 Signed Impressions: Service Date/Time: Sunday, June 18, 2017 20:10 - CONCLUSION: 1. No acute findings. Franco Agustin MD Other Results Microbiology Date/Time Source Procedure Growth Status 06/18/17 21:25 Blood Peripheral Aerobic Blood Culture - Preliminary NO GROWTH IN 3 DAYS Resulted 06/18/17 21:25 Blood Peripheral Anaerobic Blood Culture - Preliminary NO GROWTH IN 3 DAYS Resulted 06/21/17 20:30 Wound Bone Acid Fast Stain Pending Received 06/21/17 20:30 Wound Bone Mycobacterial Culture Pending Received Objective Remarks Lower extremity physical exam: Vascular: Dorsalis pedis 1/4, posterior tibial non palpable. Capillary refill time within normal limits to digits 5 bilateral foot. Edema present right hallux Neuro: Gross sensation intact to bilateral lower extremity. Pinpoint sensation decreased. No hyperalgesia noted to bilateral lower extremity Dermatology: Increased erythema noted to right hallux extending into MPJ with streaking noted into midfoot and ankle. Streaking has resolved however erythema to right hallux persists despite IV antibiotics. Right hallux medial border of nail ulceration noted with mild sanguinous/fibrotic drainage. No crepitus on palpation of right hallux. Onychomycosis noted of right hallux nail. New plantar hallux area of fluctuation noted with mild blistering present. Musculoskeletal: Tender to palpation to right hallux. Medications and IVs Current Medications Medications (Trade) Dose Ordered Sig/[place] Route Start Time Stop Time Status Last Admin (NS Flush) 2 ml UNSCH PRN IV FLUSH 06/18/17 22:45 (NS Flush) 2 ml BID IV FLUSH 06/19/17 09:00 06/21/17 21:19 (Tylenol) 650 mg Q4H PRN PO 06/18/17 22:45 (Zofran Inj) 4 mg Q6H PRN IVP 06/18/17 22:45 06/19/17 13:20 (Narcan Inj) 0.4 mg UNSCH PRN IV PUSH 06/18/17 22:45 Pharmacy Profile Note 0 ml @ 0 mls/hr UNSCH OTHER 06/18/17 22:45 Piperacillin Sod/ Tazobactam Sod 50 ml @ 100 mls/hr Q6H IV 06/19/17 04:00 06/21/17 22:28 (D50w (Vial) Inj) 50 ml UNSCH PRN IV PUSH 06/18/17 22:45 (Glucagon Inj) 1 mg UNSCH PRN OTHER 06/18/17 22:45 (NovoLOG SUPPLEMENTAL SCALE) 1 ACHS SLIDING SCALE SQ 06/19/17 08:00 06/21/17 21:23 (Norvasc) 5 mg DAILY PO 06/19/17 09:00 06/19/17 08:57 (Ecotrin Ec) 81 mg DAILY PO 06/19/17 09:00 06/21/17 09:33 (Lopressor) 50 mg BID PO 06/19/17 09:00 06/21/17 21:19 (Altace) 5 mg DAILY PO 06/19/17 09:00 06/21/17 09:32 (Hytrin) 4 mg HS PO 06/19/17 21:00 06/21/17 21:23 (Lipitor) 80 mg HS PO 06/19/17 21:00 06/21/17 21:19 (Heparin Inj) 5,000 units Q8HR SQ 06/19/17 06:00 06/21/17 21:18 (Santyl Oint) 1 applic DAILY TOPICAL 06/20/17 09:00 06/21/17 09:36 (Neurontin) 300 mg HS PO 06/20/17 21:00 06/21/17 21:19 (Colace) 100 mg BID PO 06/20/17 21:30 06/21/17 21:19 (Milk Of Jese Sloan) 30 ml Q6H PRN PO 06/20/17 21:30 Vancomycin HCl 1750 mg/Sodium Chloride 517.5 ml @ 257.5 mls/ hr Q18H IV 06/22/17 12:00 Miscellaneous Information SPECIFIC LAB TO BE DRAWN:VANCOMYCIN TROUGH DATE TO... ONCE ONCE .XX 06/23/17 23:45 06/23/17 23:46 Assessment and Plan Assessment and Plan 61-year-old male with right hallux infection/ulceration Patient examined and evaluated with all questions answered Discussed MRI findings of right hallux with patient, MRI suggestive of osteomyelitis of distal phalanx In light of patient admitting that he has had history of open ulcers to right hallux a do believe there is probable ostial present especially since there is been little improvement on IV antibiotics Patient would like to attempt to salvage right hallux therefore will attempt bedside bone biopsy as well as incision and drainage; patient wants to be sure before amputating his toe that there is osteomyelitis in the distal phalanx Discussed with patient high probability of hallux amputation Patient to remain n.p.o. after midnight as dusky discoloration noted to right hallux, will evaluate patient and make a decision as to whether or not to amputate hallux tomorrow Would appreciate vascular recommendations as to whether or not patient would heal hallux amputation Procedure: Appropriate consent signed right lower extremity marked. Timeout taken with nurse present bedside prior to procedure. 2% lidocaine plain 10 cc total infiltrated about the right medial foot. Right hallux prepped with ChloraPrep, sterile scrub and prep. 15 blade was utilized to debride all necrotic tissue from right hallux and medial border of nail. Upon debridement of this tissue there is noted to be exposed distal phalanx. Right hallux nail avulsed and there is noted to be exposed distal phalanx to medial distal border of nail bed. Jamshidi needle utilized to take specimen for pathology and micro , right hallux distal phalanx sent to pathology and micro. Attention was then directed to the plantar aspect of the hallux where an area of fluctuance with blistering noted. 1.5 cm incision was made with 15 blade there is noted to be 1 cc of purulent drainage noted. No additional purulent drainage noted on compression. Appropriate irrigation performed with normal saline to dorsal phalanx as well as plantar hallux. Clean packing placed to dorsal and plantar hallux. Patient tolerated procedure well and was noted to be a dusky appearance to right hallux and therefore recommend vascular consult. Capillary refill time is within normal limits and to 3 seconds following procedure. Patient tolerated procedure well will reevaluate in a.m. and make decision as to whether or not to proceed with hallux amputation for tomorrow. Mecca Navarro DPM Jun 21, 2017 23:25
[2017-06-22] VITALS: BP 153/80; PULSE 80; RESP 18; TEMP 98.8; O2SAT 95
[2017-06-22 04:00] VITALS: BP 164/77; PULSE 83; RESP 18; TEMP 100.3; O2SAT 95
[2017-06-22] MEDS: PIPERACIL-TAZO 3.375 GM PREMIX 50 ML IV SCH ×4 (04:12→22:31)
[2017-06-22] MEDS: HEPARIN SODIUM - SQ 10,000 UNITS/ML VIAL SQ SCH ×3 (06:00→20:35)
[2017-06-22 08:00] VITALS: BP 138/78; PULSE 67; RESP 20; TEMP 98.1; O2SAT 95
[2017-06-22] MEDS: ASPIRIN EC 81 MG TABEC PO SCH (08:43)
[2017-06-22] MEDS: DOCUSATE SODIUM 100 MG CAP PO SCH ×2 (08:43→20:36)
[2017-06-22] MEDS: INSULIN ASPART SUPPLEMENTAL SCALE SQ SCH ×2 (08:43→12:00)
[2017-06-22] MEDS: RAMIPRIL 5 MG CAP PO SCH (08:44)
[2017-06-22] MEDS: METOPROLOL TARTRATE 50 MG TAB PO SCH ×2 (08:44→20:35)
[2017-06-22] MEDS: amLODIPine BESYLATE 5 MG TAB PO SCH (08:45)
[2017-06-22] MEDS: SODIUM CHLORIDE 0.9% FLUSH 10 ML FLUSH IV FLUSH SCH ×2 (08:47→20:36)
[2017-06-22] MEDS: COLLAGENASE OINT 30 GM TUBE TOPICAL SCH (08:50)
--- NOTE | 2017-06-22 10:04 | HHI.PR ---
Subjective Remarks Follow up for right hallux osteomyelitis. Patient is doing well. He had a low grade temp of 100.3F. No other acute concerns. Family members at bedside. Objective Vitals Vital Signs Date Time Temp Pulse Resp B/P (MAP) Pulse Ox O2 Delivery O2 Flow Rate FiO2 06/22/17 08:00 98.1 67 20 138/78 (98) 95 06/22/17 07:00 Room Air 06/22/17 04:00 100.3 83 18 164/77 (106) 95 06/22/17 04:00 Room Air 06/22/17 00:00 98.8 80 18 153/80 (104) 95 06/22/17 00:00 Room Air 06/21/17 20:00 98.5 74 18 169/81 (110) 96 06/21/17 18:30 Room Air 06/21/17 17:45 99.3 69 20 139/68 (91) 96 06/21/17 16:00 98.9 69 18 146/71 (96) 95 06/21/17 12:04 98.6 64 18 115/64 (81) 98 I/O 06/21/17 06/21/17 06/21/17 06/22/17 06/22/17 06/22/17 07:00 15:00 23:00 07:00 15:00 23:00 Intake Total 50 ml 50 ml Output Total 600 ml 1000 ml Balance -600 ml 50 ml -950 ml IV Total 50 ml 50 ml Output Urine Total 600 ml 1000 ml # Voids 4 Result Diagram: 06/21/17 0555 06/21/17 0555 Imaging Last Impressions Aorta w/Runoff CTA 06/20/17 0000 Signed Impressions: Service Date/Time: Tuesday, June 20, 2017 14:56 - CONCLUSION: Trifurcation disease bilaterally worse on the left, the affected side than the right, the side with the wound. Plantar arch is poorly formed probably by the anterior tibial artery. The posterior tibial origin provide significant runoff to the foot. Js Martin MD FACR Foot MRI 06/19/17 0000 Signed Impressions: Service Date/Time: Monday, June 19, 2017 19:18 - CONCLUSION: Osteomyelitis distal phalanx great toe Danny Lancaster MD Toe X-Ray 06/18/17 0000 Signed Impressions: Service Date/Time: Sunday, June 18, 2017 20:10 - CONCLUSION: 1. No acute findings. Franco Agustin MD Objective Remarks GENERAL: Not, oriented 3, NAD. SKIN: Warm and dry. HEAD: Normocephalic. EYES: No scleral icterus. No injection or drainage. NECK: Supple, trachea midline. No JVD or lymphadenopathy. CARDIOVASCULAR: Regular rate and rhythm without murmurs, gallops, or rubs. RESPIRATORY: Breath sounds equal bilaterally. No accessory muscle use. GASTROINTESTINAL: Abdomen soft, non-tender, nondistended. MUSCULOSKELETAL: No cyanosis, or edema. Right foot is wrapped. Tip of great toe appears to be pink in color. BACK: Nontender without obvious deformity. No CVA tenderness. Procedures None. A/P Problem List: (1) Cellulitis ICD Code: L03.90 - Cellulitis, unspecified (2) CAD (coronary artery disease), [place] coronary artery ICD Code: I25.10 - Atherosclerotic heart disease of [place] coronary artery without angina pectoris Status: Chronic (3) Hypertension ICD Code: I10 - Essential (primary) hypertension Status: Chronic Assessment and Plan 61 y/o male with a history of DM, HTN, CAD, HLD and diabetic neuropathy presented to the ED with complaints of increased pain to right great toe. Imaging studies indicated right hallux osteomyelitis. Podiatry and vascular surgery was consulted. Patient underwent bedside debridement and biopsy by podiatry on 06/21/2017. - Right great toe osteomyelitis -Podiatry is following. Vascular surgery evaluated patient and determined that no vascular surgery intervention planned at this point. -We will continue vancomycin and Zosyn for now. -Consult infectious disease -Acetaminophen, [place], morphine for pain. - Diabetes mellitus -At home patient could not tolerate metformin due to GI symptoms. -Currently on sliding scale insulin. -Blood glucose is elevated over 200. Will start patient on Levemir 10 units nightly. Titrate as needed. -Also start patient on aspart 4 units 3 times daily before meals. -Hypertension -Continue amlodipine 5 mg daily, metoprolol 50 mg twice daily, ramipril 5 mg daily. Full code. Heparin subcutaneous. Discussed with vascular surgery, podiatry. Constantino Gustafson DO Jun 22, 2017 10:04
[2017-06-22 12:00] VITALS: BP 151/71; PULSE 65; RESP 20; TEMP 98.7; O2SAT 97
[2017-06-22] MEDS: VANCOMYCIN INJ 1,750 MG in SODIUM CHLORID 0.9% 500 ML INJ 500 ML IV SCH (12:30)
[2017-06-22] MEDS ORDERED: PHARMACY ORDERED LAB ONE (12:45)
[2017-06-22] MEDS ORDERED: ACETAMINOPHEN/HYDROcodone 325 MG/5 MG TAB PO PRN (13:00)
[2017-06-22] MEDS ORDERED: MORPHINE SULFATE 4 MG/ML INJ IV PUSH PRN (13:00)
--- NOTE | 2017-06-22 15:13 | PD.CAR.PN ---
CVT Progress Note Subjective/Hospital Course: Full consult dictated Patient has excellent inflow and diffuse calcifications throughout the vascular system but no hemodynamically significant lesions above the knee Below the level of the knee and along the trifurcation vessels patient has multiple segments of occlusion of anterior posterior tibial artery with reconstitution Dominant flow to both feet is via anterior tibial artery Both feet are director of anesthesia services face of this pathology and small vessel disease there is no vascular intervention that would improve the blood flow from what it is already. Would freely proceed with podiatry surgery and in face of the flow I believe this is going to heal nicely. Unfortunately in the long run diabetics with small vessel disease will face the possibility of more proximal amputation but I believe this patient is not in that category yet Objective: Vital Signs Date Time Temp Pulse Resp B/P (MAP) Pulse Ox O2 Delivery O2 Flow Rate FiO2 06/22/17 12:00 98.7 65 20 151/71 (97) 97 06/22/17 08:00 98.1 67 20 138/78 (98) 95 06/22/17 07:00 Room Air 06/22/17 04:00 100.3 83 18 164/77 (106) 95 06/22/17 04:00 Room Air 06/22/17 00:00 98.8 80 18 153/80 (104) 95 06/22/17 00:00 Room Air 06/21/17 20:00 98.5 74 18 169/81 (110) 96 06/21/17 18:30 Room Air 06/21/17 17:45 99.3 69 20 139/68 (91) 96 06/21/17 16:00 98.9 69 18 146/71 (96) 95 Result Diagram: 06/21/17 0555 06/21/17 0555 Gisel Garcia MD Jun 22, 2017 15:13
[2017-06-22 16:00] VITALS: BP 175/89; PULSE 68; RESP 20; TEMP 98.6; O2SAT 97
[2017-06-22] MEDS: INSULIN ASPART 1,000 UNITS/10 ML VIAL SQ SCH (17:21)
--- NOTE | 2017-06-22 18:40 | MB ---
cc: Gisel Garcia MD, [place] 0 DATE OF CONSULT: 06/22/2017 REASON FOR CONSULTATION: Gangrene of the right greater toe. HISTORY OF PRESENT ILLNESS: This pleasant 62-year-old gentleman with long history of diabetes mellitus and hypertension presented to the hospital with a purple right hallux tip and cellulitis of the right foot. The patient apparently had some difficulty walking. He works on a work site as a lathe machinist. He was wearing sneakers and then got hooked under some object that ripped his nail off. As a result, the patient started having bleeding, infection and finally was brought to the hospital for the same. At this point, the patient is being taken care by podiatry and medicine, yet question arises about the adequacy of his peripheral blood supply. PAST MEDICAL HISTORY: Diabetes mellitus, hypertension, coronary artery disease. PAST SURGICAL HISTORY: Coronary artery bypass surgery in 2008 and now hallux removal. MEDICATIONS: Can be found on the chart. ALLERGIES: None. PHYSICAL EXAMINATION: GENERAL: A 62-year-old gentleman in no acute distress. HEENT: Normocephalic. No trauma to the head. Pupils are equal, reactive. Extraocular muscles intact. NECK: Bilateral carotid pulses, bilateral bruits very faint. HEART: Regular rhythm. ABDOMEN: Soft, active bowel sounds. No rebound, no guarding, no masses. EXTREMITIES: Palpable femoral and palpable popliteal pulses bilateral. There is clearly no inflow disease. Distal the patient has dopplerable dorsalis pedis, posterior tibial on the right and dopplerable dorsalis pedis on the left; posterior tibial is missing. Feet are actually warm. There is black discoloration of right hallux. Cellulitis is now contained. NEUROLOGIC: Grossly intact with decreased sensation in both feet and lower legs. IMPRESSION/RECOMMENDATIONS: After reviewing laboratory and diagnostic procedures, it is clear that this patient has small vessel disease characteristic of diabetics. The clinical exam is confirmed by CTA which reveals good inflow with calcific vessels, however, no hemodynamically significant stenosis. What the patient does have, however, are changes below the level of trifurcation where anterior tibial artery is essentially dominant in both legs and anterior and posterior tibial arteries are segmentally interrupted and are reconstituted as we go down the leg. At peroneal artery, I see bits and pieces. Therefore, this is non-reconstructible vascular disease, however, based on the blood flow parameters the patient should heal after a toe amputation. There is nothing that we can do endovascular or open to improve the blood flow at this time. Thank you very much for referral. MD ILA Wang// , 01:32 PM , 06:24 PM
[2017-06-22] MEDS: GABAPENTIN 300 MG CAP PO SCH (20:35)
[2017-06-22] MEDS: ATORVASTATIN 80 MG TAB PO SCH (20:36)
[2017-06-22] MEDS: TERAZOSIN HCL 1 MG CAP PO SCH (20:36)
--- NOTE | 2017-06-22 20:40 | PD.ID.CON ---
History of Present Illness Service ID Consult Requested By Dr Gustafson Reason for Consult R hallux infectioon Primary Care Physician Curtis Boateng DO Diagnoses: History of Present Illness pt seen examined dw Dr Morton full note to follow 61 yo diabetic male sustained traumatic naiil avultion of R hallux about a week ago Folloiwing it he developped infection of his R hallux: swelling, redness, pain He presented with above symptoms to the hospital and was started on zosyn, vancomycin He has MRI done that showed Osteomyelitis distal phalanx great toe He has bone biopsy, clx negative so far Pt has fever on opne occasion up to 100.3 no leukocytosis ESR elevated @ 44 Pt was evaulated by Dr Garcia and he diagnosed him with small vessel disaese , no recunstructable arterial disease HIs diabetes is poorly controlled (Hb A1C is 10) Review of Systems Except as stated in HPI: all other systems reviewed are Neg Past Family Social History Allergies: Coded Allergies: metformin (Verified Allergy, Unknown, 12/14/16) clopidogrel (Unverified Adverse Reaction, Intermediate, Nausea/Vomiting, ) Past Medical History DM Diabetic neuropathy CAD BPH HLD HTN Past Surgical History Cabg x 4 Right knee I&D 2017 Active Ordered Medications Medications where reviewed in EMR Antibiotics Include: zosyn vancomycin Family History heart disease Social History No Tobacco. + ETOH. @ beers /day No Illicit Drugs. Physical Exam Vital Signs Vital Signs Date Time Temp Pulse Resp B/P (MAP) Pulse Ox O2 Delivery O2 Flow Rate FiO2 06/22/17 16:00 98.6 68 20 175/89 (117) 97 06/22/17 12:00 98.7 65 20 151/71 (97) 97 06/22/17 08:00 98.1 67 20 138/78 (98) 95 06/22/17 07:00 Room Air 06/22/17 04:00 100.3 83 18 164/77 (106) 95 06/22/17 04:00 Room Air 06/22/17 00:00 98.8 80 18 153/80 (104) 95 06/22/17 00:00 Room Air Physical Exam CONSTITUTIONAL/GENERAL: This is an adequately nourished patient, in no apparent distress. TUBES/LINES/DRAINS: SKIN: No jaundice, rashes, or lesions. Skin temperature appropriate. Not diaphoretic. HEAD: Atraumatic. Normocephalic. EYES: Pupils equal and round and reactive. Extraocular motions intact. No scleral icterus. No injection or drainage. Fundi not examined. ENT: Hearing grossly normal. Nose without bleeding or purulent drainage. Throat without visible erythema, exudates, masses, or lesions. NECK: Trachea midline. Supple, nontender. CARDIOVASCULAR: Regular rate and rhythm without murmurs, gallops, or rubs. No JVD. Peripheral pulses symmetric. RESPIRATORY/CHEST: Symmetric, unlabored respirations. Clear to auscultation. Breath sounds equal bilaterally. No wheezes, rales, or rhonchi. GASTROINTESTINAL: Abdomen soft, non-tender, nondistended. No hepato-splenomegaly , or palpable masses. No guarding. Bowel sounds present. MUSCULOSKELETAL: Extremities without clubbing, cyanosis, or edema. No joint tenderness or effusion noted. No calf tenderness. No mottling or clubbing. R foot with dressing in place, + serosang staining over R hallux Remnant erthema and minimal edema on distal forefoot PrNEUROLOGICAL: Awake and alert. Motor and sensory grossly within normal limits. Follows commands. Clear speech. Moves all extremities. PSYCHIATRIC: No obvious anxiety/depression. no apparent hallucinations or other psychotic thought process. Laboratory Date/Time Source Procedure Growth Status 06/18/17 21:25 Blood Peripheral Aerobic Blood Culture - Preliminary NO GROWTH IN 4 DAYS Resulted 06/18/17 21:25 Blood Peripheral Anaerobic Blood Culture - Preliminary NO GROWTH IN 4 DAYS Resulted 06/21/17 20:30 Wound Bone Acid Fast Stain Pending Received 06/21/17 20:30 Wound Bone Mycobacterial Culture Pending Received Result Diagram: 06/21/17 0555 06/21/17 0555 Imaging Last Impressions Aorta w/Runoff CTA 06/20/17 0000 Signed Impressions: Service Date/Time: Tuesday, June 20, 2017 14:56 - CONCLUSION: Trifurcation disease bilaterally worse on the left, the affected side than the right, the side with the wound. Plantar arch is poorly formed probably by the anterior tibial artery. The posterior tibial origin provide significant runoff to the foot. Js Martin MD FACR Foot MRI 06/19/17 0000 Signed Impressions: Service Date/Time: Monday, June 19, 2017 19:18 - CONCLUSION: Osteomyelitis distal phalanx great toe Danny B. Turetsky, MD Toe X-Ray 06/18/17 0000 Signed Impressions: Service Date/Time: Sunday, June 18, 2017 20:10 - CONCLUSION: 1. No acute findings. Franco Agustin MD Assessment and Plan Assessment and Plan DFI R hallux Suspected osteo, bx P, clx negative - cont current abx Discussed Condition With Jose Graves,Laura Phillips MD Jun 22, 2017 20:40
--- NOTE | 2017-06-22 20:58 | HHI.PR ---
Subjective Remarks Patient seen bedside this afternoon. Denies nausea, vomiting, fevers, or chills. Denies calf pain. Resting comfortably. States he feels as if he has more sensation in his toe. States the discoloration in his toe has improved. Objective Vital Signs Date Time Temp Pulse Resp B/P (MAP) Pulse Ox O2 Delivery O2 Flow Rate FiO2 06/22/17 16:00 98.6 68 20 175/89 (117) 97 06/22/17 12:00 98.7 65 20 151/71 (97) 97 06/22/17 08:00 98.1 67 20 138/78 (98) 95 06/22/17 07:00 Room Air 06/22/17 04:00 100.3 83 18 164/77 (106) 95 06/22/17 04:00 Room Air 06/22/17 00:00 98.8 80 18 153/80 (104) 95 06/22/17 00:00 Room Air I/O 06/21/17 06/21/17 06/21/17 06/22/17 06/22/17 06/22/17 07:00 15:00 23:00 07:00 15:00 23:00 Intake Total 50 ml 50 ml 550 ml 1010 ml Output Total 600 ml 1000 ml 875 ml Balance -600 ml 50 ml -950 ml 550 ml 135 ml Intake Oral 360 ml IV Total 50 ml 50 ml 550 ml 650 ml Output Urine Total 600 ml 1000 ml 875 ml # Voids 4 Result Diagram: 06/21/17 0555 06/21/17 0555 Imaging Last Impressions Aorta w/Runoff CTA 06/20/17 0000 Signed Impressions: Service Date/Time: Tuesday, June 20, 2017 14:56 - CONCLUSION: Trifurcation disease bilaterally worse on the left, the affected side than the right, the side with the wound. Plantar arch is poorly formed probably by the anterior tibial artery. The posterior tibial origin provide significant runoff to the foot. Js Martin MD FACR Foot MRI 06/19/17 0000 Signed Impressions: Service Date/Time: Monday, June 19, 2017 19:18 - CONCLUSION: Osteomyelitis distal phalanx great toe Danny Lancaster MD Toe X-Ray 06/18/17 0000 Signed Impressions: Service Date/Time: Sunday, June 18, 2017 20:10 - CONCLUSION: 1. No acute findings. Franco Agustin MD Procedures One day status post bedside incision and drainage with bone biopsy to distal phalanx Other Results Microbiology Date/Time Source Procedure Growth Status 06/18/17 21:25 Blood Peripheral Aerobic Blood Culture - Preliminary NO GROWTH IN 4 DAYS Resulted 06/18/17 21:25 Blood Peripheral Anaerobic Blood Culture - Preliminary NO GROWTH IN 4 DAYS Resulted 06/21/17 20:30 Wound Bone Acid Fast Stain Pending Received 06/21/17 20:30 Wound Bone Mycobacterial Culture Pending Received Objective Remarks Lower extremity physical exam: Vascular: Dorsalis pedis 1/4, posterior tibial non palpable. Capillary refill time within normal limits to digits 5 bilateral foot. Edema present right hallux Neuro: Gross sensation intact to bilateral lower extremity. Pinpoint sensation decreased. No hyperalgesia noted to bilateral lower extremity Dermatology: Decreased erythema noted to right hallux although erythema still present. Right hallux medial border of nail ulceration noted with mild sanguinous/fibrotic drainage. No crepitus on palpation of right hallux. Onychomycosis noted of right hallux nail. Plantar incision with no purulent drainage noted upon compression. Sinus noted at right hallux medial nail border with probe to bone no drainage noted with granular base. Musculoskeletal: Tender to palpation to right hallux. Medications and IVs Current Medications Medications (Trade) Dose Ordered Sig/[place] Route Start Time Stop Time Status Last Admin (NS Flush) 2 ml UNSCH PRN IV FLUSH 06/18/17 22:45 (NS Flush) 2 ml BID IV FLUSH 06/19/17 09:00 06/22/17 20:36 (Tylenol) 650 mg Q4H PRN PO 06/18/17 22:45 06/22/17 04:21 (Zofran Inj) 4 mg Q6H PRN IVP 06/18/17 22:45 06/19/17 13:20 (Narcan Inj) 0.4 mg UNSCH PRN IV PUSH 06/18/17 22:45 Pharmacy Profile Note 0 ml @ 0 mls/hr UNSCH OTHER 06/18/17 22:45 Piperacillin Sod/ Tazobactam Sod 50 ml @ 100 mls/hr Q6H IV 06/19/17 04:00 06/22/17 15:56 (D50w (Vial) Inj) 50 ml UNSCH PRN IV PUSH 06/18/17 22:45 (Glucagon Inj) 1 mg UNSCH PRN OTHER 06/18/17 22:45 (Norvasc) 5 mg DAILY PO 06/19/17 09:00 06/19/17 08:57 (Ecotrin Ec) 81 mg DAILY PO 06/19/17 09:00 06/22/17 08:43 (Lopressor) 50 mg BID PO 06/19/17 09:00 06/22/17 20:35 (Altace) 5 mg DAILY PO 06/19/17 09:00 06/22/17 08:44 (Hytrin) 4 mg HS PO 06/19/17 21:00 06/22/17 20:36 (Lipitor) 80 mg HS PO 06/19/17 21:00 06/22/17 20:36 (Heparin Inj) 5,000 units Q8HR SQ 06/19/17 06:00 06/22/17 20:35 (Santyl Oint) 1 applic DAILY TOPICAL 06/20/17 09:00 06/21/17 09:36 (Neurontin) 300 mg HS PO 06/20/17 21:00 06/22/17 20:35 (Colace) 100 mg BID PO 06/20/17 21:30 06/22/17 20:36 (Milk Of Magnallie Liq) 30 ml Q6H PRN PO 06/20/17 21:30 06/22/17 15:56 Vancomycin HCl 1750 mg/Sodium Chloride 517.5 ml @ 257.5 mls/ hr Q18H IV 06/22/17 12:00 06/22/17 12:30 Miscellaneous Information SPECIFIC LAB TO BE DRAWN:VANCOMYCIN TROUGH DATE TO... ONCE ONCE .XX 06/23/17 23:45 06/23/17 23:46 ([place] 5-325 Mg) 1 tab Q6H PRN PO 06/22/17 13:00 (Morphine Inj) 4 mg Q3H PRN IV PUSH 06/22/17 13:00 (Levemir Inj) 10 units HS SQ 06/22/17 21:00 06/22/17 20:35 (NovoLOG INJ) 4 units TIDAC SQ 06/22/17 17:00 06/22/17 17:21 Assessment and Plan Assessment and Plan 61-year-old male with right hallux infection/ulceration Patient examined and evaluated with all questions answered Discussed MRI findings of right hallux with patient, MRI suggestive of osteomyelitis of distal phalanx Patient continues to stress salvaging hallux He would like to wait for bone biopsy before moving forward with amputation Patient states he discussed this with infectious disease Patient is at high risk and high probability of bone biopsy being positive for osteomyelitis Vascular consult appreciated Will await pathology Daily dressing changes consisting of alginate to plantar hallux incision and wound gel to dorsal hallux Mecca Navarro DPM Jun 22, 2017 20:58
[2017-06-22] MEDS ORDERED: INSULIN DETEMIR 100 UNITS/ML VIAL SQ SCH (21:00)
[2017-06-22 22:27] VITALS: BP 115/87; PULSE 77; RESP 20; TEMP 98.3; O2SAT 95
--- NOTE | 2017-06-22 22:36 | RADRPT ---
EXAM DATE/TIME: 06/22/2017 20:50 [facility] COMPARISON: No previous studies available for comparison. INDICATIONS : Stenosis. MEDICAL HISTORY : Congestive heart failure. Hypertension. Glaucoma. Glasses. Numbness. Chest pain. Hiatal hernia. Beatrice nt pain. Diabetes. Skin cancer. SURGICAL HISTORY : CABG. Right knee bursectomy with wound vac. Right lung puncture. ENCOUNTER: Initial ACUITY: > 1 year PAIN SCORE: 0/10 LOCATION: Bilateral neck PEAK SYSTOLIC VELOCITIES (cm/sec): ICA/CCA RATIO: Right: 0.9 Left: 1.0 ICA: Right: 100.3 Left: 116.2 CCA: Right: 107.1 Left: 112.1 ECA: Right: 125.9 Left: 116.0 VERTEBRAL: Right: UTO absent Left: 112.3 antegrade Elevated flow velocities and ICA/CCA ratios have been found to correlate with increased degrees of vessel stenosis, calculated as percentage of diameter relative to a normal segment of distal ICA/CCA FINDINGS: RIGHT CAROTID: No significant stenosis is visualized. The waveforms are within normal limits. LEFT CAROTID: No significant stenosis is visualized. The waveforms are within normal limits. VERTEBRAL ARTERIES: Antegrade flow is seen within the left vertebral artery. The right vertebral artery is not visualized . MISCELLANEOUS: None. CONCLUSION: No hemodynamically significant stenosis within the carotid arteries. Right vertebral artery is nonvisualized but antegrade flow is noted within the left vertebral artery. Antonio Mcghee MD on June 22, 2017 at 22:33 Board Certified Radiologist. This report was verified electronically.
[2017-06-23 02:30] VITALS: BP 135/65; PULSE 72; RESP 16; TEMP 98.6; O2SAT 95
[2017-06-23] MEDS: PIPERACIL-TAZO 3.375 GM PREMIX 50 ML IV SCH ×4 (04:17→21:31)
[2017-06-23 05:44] VITALS: BP 134/73; PULSE 67; RESP 16; TEMP 98.8; O2SAT 95
[2017-06-23] MEDS: VANCOMYCIN INJ 1,750 MG in SODIUM CHLORID 0.9% 500 ML INJ 500 ML IV SCH (05:45)
[2017-06-23] MEDS: HEPARIN SODIUM - SQ 10,000 UNITS/ML VIAL SQ SCH ×3 (05:47→21:32)
[2017-06-23 08:00] VITALS: BP 141/66; PULSE 74; RESP 17; TEMP 99.3; O2SAT 96
[2017-06-23 08:20] LABS: CREATININE 1.24 MG/DL (0.60-1.30)
[2017-06-23] MEDS: RAMIPRIL 5 MG CAP PO SCH (09:11)
[2017-06-23] MEDS: DOCUSATE SODIUM 100 MG CAP PO SCH ×2 (09:12→21:23)
[2017-06-23] MEDS: METOPROLOL TARTRATE 50 MG TAB PO SCH ×2 (09:12→21:22)
[2017-06-23] MEDS: SODIUM CHLORIDE 0.9% FLUSH 10 ML FLUSH IV FLUSH SCH ×2 (09:12→21:22)
[2017-06-23] MEDS: ASPIRIN EC 81 MG TABEC PO SCH (09:12)
[2017-06-23] MEDS: INSULIN ASPART 1,000 UNITS/10 ML VIAL SQ SCH ×2 (09:12→13:17)
[2017-06-23] MEDS: COLLAGENASE OINT 30 GM TUBE TOPICAL SCH (09:12)
[2017-06-23] MEDS: amLODIPine BESYLATE 5 MG TAB PO SCH (09:12)
[2017-06-23 12:00] VITALS: BP 114/65; PULSE 63; RESP 18; TEMP 98.1; O2SAT 95
[2017-06-23 16:00] VITALS: BP 132/72; PULSE 73; RESP 18; TEMP 98.4; O2SAT 96
--- NOTE | 2017-06-23 17:05 | HHI.PR ---
Subjective Remarks Follow up for right hallux osteomyelitis. Patient is currently doing well. No fever or chills. He is waiting for biopsy results to be available. Objective Vitals Vital Signs Date Time Temp Pulse Resp B/P (MAP) Pulse Ox O2 Delivery O2 Flow Rate FiO2 06/23/17 12:00 98.1 63 18 114/65 (81) 95 06/23/17 08:00 Room Air 06/23/17 08:00 99.3 74 17 141/66 (91) 96 06/23/17 05:44 98.8 67 16 134/73 (93) 95 06/23/17 04:00 Room Air 06/23/17 02:30 98.6 72 16 135/65 (88) 95 06/23/17 00:00 Room Air 06/22/17 22:27 98.3 77 20 115/87 (96) 95 06/22/17 20:00 Room Air I/O 06/22/17 06/22/17 06/22/17 06/23/17 06/23/17 06/23/17 07:00 15:00 23:00 07:00 15:00 23:00 Intake Total 50 ml 550 ml 1010 ml 100 ml Output Total 1000 ml 875 ml Balance -950 ml 550 ml 135 ml 100 ml Intake Oral 360 ml IV Total 50 ml 550 ml 650 ml 100 ml Output Urine Total 1000 ml 875 ml # Bowel Movements 1 Result Diagram: 06/21/17 0555 06/23/17 0547 Imaging Last Impressions Carotid Artery Ultrasound 06/22/17 0000 Signed Impressions: Service Date/Time: Thursday, June 22, 2017 20:50 - CONCLUSION: No hemodynamically significant stenosis within the carotid arteries. Right vertebral artery is nonvisualized but antegrade flow is noted within the left vertebral artery. Antonio Mcghee MD Aorta w/Runoff CTA 06/20/17 0000 Signed Impressions: Service Date/Time: Tuesday, June 20, 2017 14:56 - CONCLUSION: Trifurcation disease bilaterally worse on the left, the affected side than the right, the side with the wound. Plantar arch is poorly formed probably by the anterior tibial artery. The posterior tibial origin provide significant runoff to the foot. Js Martin MD FACR Foot MRI 06/19/17 0000 Signed Impressions: Service Date/Time: Monday, June 19, 2017 19:18 - CONCLUSION: Osteomyelitis distal phalanx great toe Danny Lancaster MD Toe X-Ray 06/18/17 0000 Signed Impressions: Service Date/Time: Sunday, June 18, 2017 20:10 - CONCLUSION: 1. No acute findings. Franco Agustin MD Objective Remarks GENERAL: Not, oriented 3, NAD. SKIN: Warm and dry. HEAD: Normocephalic. EYES: No scleral icterus. No injection or drainage. NECK: Supple, trachea midline. No JVD or lymphadenopathy. CARDIOVASCULAR: Regular rate and rhythm without murmurs, gallops, or rubs. RESPIRATORY: Breath sounds equal bilaterally. No accessory muscle use. GASTROINTESTINAL: Abdomen soft, non-tender, nondistended. MUSCULOSKELETAL: No cyanosis, or edema. Right foot is wrapped. Tip of great toe appears to be pink in color. BACK: Nontender without obvious deformity. No CVA tenderness. Procedures None. A/P Problem List: (1) Cellulitis ICD Code: L03.90 - Cellulitis, unspecified (2) CAD (coronary artery disease), [place] coronary artery ICD Code: I25.10 - Atherosclerotic heart disease of [place] coronary artery without angina pectoris Status: Chronic (3) Hypertension ICD Code: I10 - Essential (primary) hypertension Status: Chronic Assessment and Plan 61 y/o male with a history of DM, HTN, CAD, HLD and diabetic neuropathy presented to the ED with complaints of increased pain to right great toe. Imaging studies indicated right hallux osteomyelitis. Podiatry and vascular surgery was consulted. Patient underwent bedside debridement and biopsy by podiatry on 06/21/2017. - Right great toe osteomyelitis -Podiatry is following. Vascular surgery evaluated patient and determined that no vascular surgery intervention planned at this point. -We will continue vancomycin and Zosyn for now. Infectious disease is following. -Acetaminophen, [place], morphine for pain. - Diabetes mellitus -At home patient could not tolerate metformin due to GI symptoms. -Currently on sliding scale insulin. -Blood glucose is elevated over 200. Increase long acting and pre-meal insulin. -Will Continue Levemir 15 units nightly. Titrate as needed. -Also start patient on aspart 5 units 3 times daily before meals. -Hypertension -Continue amlodipine 5 mg daily, metoprolol 50 mg twice daily, ramipril 5 mg daily. Full code. Heparin subcutaneous. Constantino Gustafson DO Jun 23, 2017 17:05
[2017-06-23 20:00] VITALS: BP 152/83; PULSE 68; RESP 16; TEMP 98.3; O2SAT 96
[2017-06-23] MEDS ORDERED: INSULIN DETEMIR 100 UNITS/ML VIAL SQ SCH (21:00)
[2017-06-23] MEDS: ATORVASTATIN 80 MG TAB PO SCH (21:23)
[2017-06-23] MEDS: GABAPENTIN 300 MG CAP PO SCH (21:23)
[2017-06-23] MEDS: TERAZOSIN HCL 1 MG CAP PO SCH (21:23)
[2017-06-23] MEDS ORDERED: PHARMACY ORDERED LAB ONE (23:45)
[2017-06-24] VITALS (7 sets, daily range): BP systolic 116–162; BP diastolic 68–79; PULSE 58–74; RESP 14–20; TEMP 97.9–99.1; O2SAT 95–98
[2017-06-24] MEDS: VANCOMYCIN INJ 1,750 MG in SODIUM CHLORID 0.9% 500 ML INJ 500 ML IV SCH ×2 (00:36→17:16)
[2017-06-24] MEDS: PIPERACIL-TAZO 3.375 GM PREMIX 50 ML IV SCH ×4 (04:29→21:58)
[2017-06-24] MEDS: HEPARIN SODIUM - SQ 10,000 UNITS/ML VIAL SQ SCH ×3 (05:00→21:57)
[2017-06-24] MEDS: SODIUM CHLORIDE 0.9% FLUSH 10 ML FLUSH IV FLUSH SCH ×2 (09:16→21:56)
[2017-06-24] MEDS: INSULIN ASPART 1,000 UNITS/10 ML VIAL SQ SCH ×3 (09:16→17:16)
[2017-06-24] MEDS: COLLAGENASE OINT 30 GM TUBE TOPICAL SCH (09:17)
[2017-06-24] MEDS: RAMIPRIL 5 MG CAP PO SCH (09:17)
[2017-06-24] MEDS: DOCUSATE SODIUM 100 MG CAP PO SCH ×2 (09:17→21:56)
[2017-06-24] MEDS: ASPIRIN EC 81 MG TABEC PO SCH (09:17)
[2017-06-24] MEDS: amLODIPine BESYLATE 5 MG TAB PO SCH (09:17)
[2017-06-24] MEDS: METOPROLOL TARTRATE 50 MG TAB PO SCH ×2 (09:17→21:56)
--- NOTE | 2017-06-24 14:40 | HHI.PR ---
Subjective Remarks Follow up for right hallux osteomyelitis. Patient is currently doing well. He does report some burning sensation in his right great toe. No fever or chills. Objective Vitals Vital Signs Date Time Temp Pulse Resp B/P (MAP) Pulse Ox O2 Delivery O2 Flow Rate FiO2 06/24/17 12:00 98.3 66 20 129/69 (89) 95 06/24/17 08:00 Room Air 06/24/17 08:00 98.6 58 20 154/73 (100) 95 06/24/17 04:00 97.9 64 16 123/68 (86) 96 06/24/17 00:00 97.9 65 18 125/68 (87) 96 06/23/17 20:30 Room Air 06/23/17 20:00 98.3 68 16 152/83 (106) 96 06/23/17 16:00 98.4 73 18 132/72 (92) 96 I/O 06/23/17 06/23/17 06/23/17 06/24/17 06/24/17 06/24/17 07:00 15:00 23:00 07:00 15:00 23:00 Intake Total 100 ml 470 ml 625 ml Balance 100 ml 470 ml 625 ml Intake Oral 420 ml IV Total 100 ml 50 ml 625 ml # Voids 7 2 3 # Bowel Movements 1 1 Result Diagram: 06/21/17 0555 06/23/17 0547 Objective Remarks GENERAL: Not, oriented 3, NAD. SKIN: Warm and dry. HEAD: Normocephalic. EYES: No scleral icterus. No injection or drainage. NECK: Supple, trachea midline. No JVD or lymphadenopathy. CARDIOVASCULAR: Regular rate and rhythm without murmurs, gallops, or rubs. RESPIRATORY: Breath sounds equal bilaterally. No accessory muscle use. GASTROINTESTINAL: Abdomen soft, non-tender, nondistended. MUSCULOSKELETAL: No cyanosis, or edema. Right foot is wrapped. Tip of great toe appears to be pink in color. BACK: Nontender without obvious deformity. No CVA tenderness. Procedures None. A/P Problem List: (1) Cellulitis ICD Code: L03.90 - Cellulitis, unspecified (2) CAD (coronary artery disease), [place] coronary artery ICD Code: I25.10 - Atherosclerotic heart disease of [place] coronary artery without angina pectoris Status: Chronic (3) Hypertension ICD Code: I10 - Essential (primary) hypertension Status: Chronic Assessment and Plan 61 y/o male with a history of DM, HTN, CAD, HLD and diabetic neuropathy presented to the ED with complaints of increased pain to right great toe. Imaging studies indicated right hallux osteomyelitis. Podiatry and vascular surgery was consulted. Patient underwent bedside debridement and biopsy by podiatry on 06/21/2017. - Right great toe osteomyelitis -Podiatry is following. Vascular surgery evaluated patient and determined that no vascular surgery intervention planned at this point. -We will continue vancomycin and Zosyn for now. Infectious disease is following. -Acetaminophen, [place], morphine for pain. - Diabetes mellitus -At home patient could not tolerate metformin due to GI symptoms. -Currently on sliding scale insulin. -Blood glucose is better - in the low 200. Increase long acting and pre- meal insulin. -Will increase Levemir to 18 units nightly. Titrate as needed. -Also start patient on aspart 5 units 3 times daily before meals. -Hypertension -Continue amlodipine 5 mg daily, metoprolol 50 mg twice daily, ramipril 5 mg daily. Full code. Heparin subcutaneous. Constantino Gustafson DO Jun 24, 2017 14:40
[2017-06-24] MEDS ORDERED: INSULIN DETEMIR 100 UNITS/ML VIAL SQ SCH (21:00)
[2017-06-24] MEDS: GABAPENTIN 300 MG CAP PO SCH (21:55)
[2017-06-24] MEDS: TERAZOSIN HCL 1 MG CAP PO SCH (21:55)
[2017-06-24] MEDS: ATORVASTATIN 80 MG TAB PO SCH (21:56)
[2017-06-25] MEDS: PIPERACIL-TAZO 3.375 GM PREMIX 50 ML IV SCH ×4 (04:36→21:27)
[2017-06-25 04:38] VITALS: BP 146/74; PULSE 74; RESP 16; TEMP 98.7; O2SAT 96
[2017-06-25] MEDS: HEPARIN SODIUM - SQ 10,000 UNITS/ML VIAL SQ SCH ×3 (05:10→21:27)
[2017-06-25 08:00] VITALS: BP 123/69; PULSE 65; RESP 20; TEMP 98.4; O2SAT 94
[2017-06-25 08:34] LABS: CREATININE 1.42 MG/DL (0.60-1.30)
[2017-06-25] MEDS: SODIUM CHLORIDE 0.9% FLUSH 10 ML FLUSH IV FLUSH SCH ×2 (09:00→21:29)
[2017-06-25] MEDS: COLLAGENASE OINT 30 GM TUBE TOPICAL SCH (09:00)
[2017-06-25] MEDS: INSULIN ASPART 1,000 UNITS/10 ML VIAL SQ SCH ×3 (09:52→18:37)
[2017-06-25] MEDS: DOCUSATE SODIUM 100 MG CAP PO SCH ×2 (09:58→21:28)
[2017-06-25] MEDS: amLODIPine BESYLATE 5 MG TAB PO SCH (09:58)
[2017-06-25] MEDS: METOPROLOL TARTRATE 50 MG TAB PO SCH ×2 (09:58→21:28)
[2017-06-25] MEDS: ASPIRIN EC 81 MG TABEC PO SCH (09:58)
[2017-06-25] MEDS: RAMIPRIL 5 MG CAP PO SCH (09:58)
[2017-06-25 12:00] VITALS: BP 113/62; PULSE 69; RESP 20; TEMP 98.4; O2SAT 95
[2017-06-25] MEDS: VANCOMYCIN INJ 1,750 MG in SODIUM CHLORID 0.9% 500 ML INJ 500 ML IV SCH (13:02)
[2017-06-25 16:00] VITALS: BP 140/74; PULSE 66; RESP 20; TEMP 98.2; O2SAT 96
[2017-06-25 19:48] VITALS: BP 127/73; PULSE 68; RESP 20; TEMP 98.3; O2SAT 96
--- NOTE | 2017-06-25 20:18 | HHI.PR ---
Addendum to Inpatient Note Additional Information seen today around 12 pm full note to follow Laura Snell MD Jun 25, 2017 20:17
--- NOTE | 2017-06-25 20:20 | HHI.PR ---
Subjective Remarks Follow up for right hallux osteomyelitis. No acute concerns. No fever, chills. Waiting for bx results and then further plans can be devised by podiatry. Objective Vitals Vital Signs Date Time Temp Pulse Resp B/P (MAP) Pulse Ox O2 Delivery O2 Flow Rate FiO2 06/25/17 19:48 98.3 68 20 127/73 (91) 96 06/25/17 16:00 98.2 66 20 140/74 (96) 96 06/25/17 12:00 98.4 69 20 113/62 (79) 95 06/25/17 08:00 98.4 65 20 123/69 (87) 94 06/25/17 07:30 Room Air 06/25/17 04:38 98.7 74 16 146/74 (98) 96 06/24/17 23:56 99.1 73 16 162/79 (106) 95 I/O 06/24/17 06/24/17 06/24/17 06/25/17 06/25/17 06/25/17 06:59 14:59 22:59 06:59 14:59 22:59 Intake Total 625 ml 480 ml 720 ml Balance 625 ml 480 ml 720 ml Intake Oral 480 ml 720 ml IV Total 625 ml # Voids 2 3 4 4 # Bowel Movements 1 0 Result Diagram: 06/21/17 0555 06/25/17 0655 Objective Remarks GENERAL: Not, oriented 3, NAD. SKIN: Warm and dry. HEAD: Normocephalic. EYES: No scleral icterus. No injection or drainage. NECK: Supple, trachea midline. No JVD or lymphadenopathy. CARDIOVASCULAR: Regular rate and rhythm without murmurs, gallops, or rubs. RESPIRATORY: Breath sounds equal bilaterally. No accessory muscle use. GASTROINTESTINAL: Abdomen soft, non-tender, nondistended. MUSCULOSKELETAL: No cyanosis, or edema. Right foot is wrapped. Tip of great toe appears to be pink in color. BACK: Nontender without obvious deformity. No CVA tenderness. Procedures None. A/P Problem List: (1) Cellulitis ICD Code: L03.90 - Cellulitis, unspecified (2) CAD (coronary artery disease), [place] coronary artery ICD Code: I25.10 - Atherosclerotic heart disease of [place] coronary artery without angina pectoris Status: Chronic (3) Hypertension ICD Code: I10 - Essential (primary) hypertension Status: Chronic Assessment and Plan 61 y/o male with a history of DM, HTN, CAD, HLD and diabetic neuropathy presented to the ED with complaints of increased pain to right great toe. Imaging studies indicated right hallux osteomyelitis. Podiatry and vascular surgery was consulted. Patient underwent bedside debridement and biopsy by podiatry on 06/21/2017. - Right great toe osteomyelitis -Podiatry is following. Vascular surgery evaluated patient and determined that no vascular surgery intervention planned at this point. -We will continue vancomycin and Zosyn for now. Infectious disease is following. -Acetaminophen, Candor, morphine for pain. - Diabetes mellitus -At home patient could not tolerate metformin due to GI symptoms. -Currently on sliding scale insulin. -Blood glucose still above 200. -Will increase Levemir to 22 units nightly. Titrate as needed. -Als continue patient on aspart 7 units 3 times daily before meals. -Hypertension -Continue amlodipine 5 mg daily, metoprolol 50 mg twice daily, ramipril 5 mg daily. Full code. Heparin subcutaneous. Constantino Gustafson DO Jun 25, 2017 20:20
--- NOTE | 2017-06-25 21:19 | PD.POD ---
Subjective Podiatric Problems Right hallux osteomyelitis, s/p bone biopsy Past Med/Surg/Social History Social History Smoking Status: Never Smoker Objective Vital Signs Vital Signs Date Time Temp Pulse Resp B/P (MAP) Pulse Ox O2 Delivery O2 Flow Rate FiO2 06/25/17 19:48 98.3 68 20 127/73 (91) 96 06/25/17 16:00 98.2 66 20 140/74 (96) 96 06/25/17 12:00 98.4 69 20 113/62 (79) 95 06/25/17 08:00 98.4 65 20 123/69 (87) 94 06/25/17 07:30 Room Air 06/25/17 04:38 98.7 74 16 146/74 (98) 96 06/24/17 23:56 99.1 73 16 162/79 (106) 95 Coded Allergies: metformin (Verified Allergy, Unknown, 12/14/16) clopidogrel (Unverified Adverse Reaction, Intermediate, Nausea/Vomiting, ) Other Results Pathology: Bone biopsy right distal hallux positive for osteomyelitis Microbiology Date/Time Source Procedure Growth Status 06/18/17 21:25 Blood Peripheral Aerobic Blood Culture - Final NO GROWTH IN 5 DAYS Complete 06/18/17 21:25 Blood Peripheral Anaerobic Blood Culture - Final NO GROWTH IN 5 DAYS Complete 06/21/17 20:30 Wound Bone Acid Fast Stain - Final NO ACID FAST BACILLI SEEN Resulted 06/21/17 20:30 Wound Bone Mycobacterial Culture Pending Resulted Assessment & Plan A/P Right hallux osteomyelitis, Called and discussed biopsy results with patient positive for osteomyelitis To OR tomorrow afternoon 3 pm for amputation right distal hallux NPO after breakfast, Patient must eat before 7 a.m. Tadeo Preston DPM Jun 25, 2017 21:19
[2017-06-25] MEDS: INSULIN DETEMIR 100 UNITS/ML VIAL SQ SCH (21:26)
[2017-06-25] MEDS: GABAPENTIN 300 MG CAP PO SCH (21:28)
[2017-06-25] MEDS: TERAZOSIN HCL 1 MG CAP PO SCH (21:28)
[2017-06-25] MEDS: ATORVASTATIN 80 MG TAB PO SCH (21:28)
--- NOTE | 2017-06-25 23:31 | HHI.PR ---
Addendum to Inpatient Note Additional Information Case was discussed with Dr Navarro Pt grew out MRSA from the bone culture path is Laura Briseno MD Jun 25, 2017 23:31
[2017-06-25 23:43] VITALS: BP 136/72; PULSE 64; RESP 14; TEMP 98.1; O2SAT 97
[2017-06-26 04:30] VITALS: BP 140/72; PULSE 62; RESP 14; TEMP 98.4; O2SAT 95
[2017-06-26] MEDS: PIPERACIL-TAZO 3.375 GM PREMIX 50 ML IV SCH ×4 (04:49→22:12)
[2017-06-26] MEDS: VANCOMYCIN INJ 1,750 MG in SODIUM CHLORID 0.9% 500 ML INJ 500 ML IV SCH (05:07)
[2017-06-26] MEDS: HEPARIN SODIUM - SQ 10,000 UNITS/ML VIAL SQ SCH ×3 (05:07→21:03)
[2017-06-26] MEDS ORDERED: PHARMACY ORDERED LAB ONE (05:45)
[2017-06-26 08:00] VITALS: BP 156/85; PULSE 68; RESP 20; TEMP 98.3; O2SAT 95
[2017-06-26] MEDS ORDERED: LACTATED RINGER'S 1000 ML IV PRN (08:45)
[2017-06-26] MEDS ORDERED: METOPROLOL TARTRATE 25 MG TAB PO PRN (08:45)
[2017-06-26] MEDS: SODIUM CHLORIDE 0.9% FLUSH 10 ML FLUSH IV FLUSH SCH ×2 (08:45→22:11)
[2017-06-26] MEDS ORDERED: SODIUM CHLORID 0.9% 500 ML IV PRN (08:45)
[2017-06-26] MEDS ORDERED: POVIDONE IODINE 5% (ANTISEPSIS KIT) 4 APPLICATIONS EACH NARE PRN (08:45)
[2017-06-26] MEDS ORDERED: CHLORHEXIDINE GLUCONATE 2 % 1 PACK (2 CLOTHS) TOPICAL PRN (08:45)
[2017-06-26] MEDS: INSULIN ASPART 1,000 UNITS/10 ML VIAL SQ SCH ×3 (08:46→16:31)
[2017-06-26] MEDS: RAMIPRIL 5 MG CAP PO SCH (08:47)
[2017-06-26] MEDS: amLODIPine BESYLATE 5 MG TAB PO SCH (08:48)
[2017-06-26] MEDS: DOCUSATE SODIUM 100 MG CAP PO SCH ×2 (08:48→22:09)
[2017-06-26] MEDS: ASPIRIN EC 81 MG TABEC PO SCH (08:48)
[2017-06-26] MEDS: METOPROLOL TARTRATE 50 MG TAB PO SCH ×2 (08:48→22:09)
[2017-06-26] MEDS: COLLAGENASE OINT 30 GM TUBE TOPICAL SCH (08:49)
[2017-06-26 09:13] LABS: AUTOMATED NEUTROPHIL # 3.7 TH/MM3 (1.8-7.7); BASOPHIL % 0.9 % (0.0-2.0); EOSINOPHIL # 0.1 TH/MM3 (0-0.4); EOSINOPHIL % 2.4 % (0.0-4.0); HEMOGLOBIN 12.8 GM/DL (13.0-17.0); LYMPH % 17.8 % (9.0-44.0); MEAN CELL VOLUME 87.4 FL (80.0-100.0); MEAN CORPUSCULAR HGB CONC 35.4 % (32.0-36.0); MEAN PLATELET VOLUME 7.9 FL (7.0-11.0); MONO % 12.5 % (0.0-8.0); MONOCYTE # 0.7 TH/MM3 (0-0.9); NEUT % 66.4 % (16.0-70.0); PLATELET COUNT 224 TH/MM3 (150-450); RED BLOOD COUNT 4.12 MIL/MM3 (4.50-5.90); RED CELL DISTRIBUTION WIDTH 13.3 % (11.6-17.2); WHITE BLOOD COUNT 5.6 TH/MM3 (4.0-11.0)
[2017-06-26 09:31] LABS: BICARBONATE 27.6 MEQ/L (21.0-32.0); CALCIUM 8.7 MG/DL (8.5-10.1); CREATININE 1.5 MG/DL (0.60-1.30)
[2017-06-26 12:00] VITALS: BP 133/72; PULSE 62; RESP 20; TEMP 98.3; O2SAT 96
--- NOTE | 2017-06-26 14:06 | HHI.PR ---
Subjective Remarks Follow-up osteomyelitis, diabetes. Patient reports neuropathy in his right foot. Going for surgery today. Also reports constipation. Objective Vitals Vital Signs Date Time Temp Pulse Resp B/P (MAP) Pulse Ox O2 Delivery O2 Flow Rate FiO2 06/26/17 12:00 98.3 62 20 133/72 (92) 96 06/26/17 08:00 98.3 68 20 156/85 (108) 95 06/26/17 04:30 98.4 62 14 140/72 (94) 95 06/25/17 23:43 98.1 64 14 136/72 (93) 97 06/25/17 20:15 Room Air 06/25/17 19:48 98.3 68 20 127/73 (91) 96 06/25/17 16:00 98.2 66 20 140/74 (96) 96 I/O 06/25/17 06/25/17 06/25/17 06/26/17 06/26/17 06/26/17 07:00 15:00 23:00 07:00 15:00 23:00 Intake Total 720 ml Balance 720 ml Intake Oral 720 ml # Voids 4 # Bowel Movements 0 Result Diagram: 06/26/17 0833 06/26/17 0833 Imaging Last Impressions Carotid Artery Ultrasound 06/22/17 0000 Signed Impressions: Service Date/Time: Thursday, June 22, 2017 20:50 - CONCLUSION: No hemodynamically significant stenosis within the carotid arteries. Right vertebral artery is nonvisualized but antegrade flow is noted within the left vertebral artery. Antonio Mcghee MD Aorta w/Runoff CTA 06/20/17 0000 Signed Impressions: Service Date/Time: Tuesday, June 20, 2017 14:56 - CONCLUSION: Trifurcation disease bilaterally worse on the left, the affected side than the right, the side with the wound. Plantar arch is poorly formed probably by the anterior tibial artery. The posterior tibial origin provide significant runoff to the foot. Js Martin MD FACR Foot MRI 06/19/17 0000 Signed Impressions: Service Date/Time: Monday, June 19, 2017 19:18 - CONCLUSION: Osteomyelitis distal phalanx great toe Danny Lancaster MD Toe X-Ray 06/18/17 0000 Signed Impressions: Service Date/Time: Sunday, June 18, 2017 20:10 - CONCLUSION: 1. No acute findings. Franco Agustin MD Objective Remarks General: No acute distress. Heart: Regular rate and rhythm. No murmur. Lungs: Clear to auscultation bilaterally. No wheezes, rales, or rhonchi. Breathing is nonlabored. Abdomen: Soft, nontender, nondistended. Extremities: No lower extremity edema. Right foot great toe bandaged. Psych: Alert and oriented. Procedures None. Urinary Catheter: No Vascular Central Line Catheter: No A/P Problem List: (1) Cellulitis ICD Code: L03.90 - Cellulitis, unspecified (2) CAD (coronary artery disease), [place] coronary artery ICD Code: I25.10 - Atherosclerotic heart disease of [place] coronary artery without angina pectoris Status: Chronic (3) Hypertension ICD Code: I10 - Essential (primary) hypertension Status: Chronic Assessment and Plan 1. Right great toe osteomyelitis: Appreciate podiatry recommendations. Patient has been evaluated by vascular surgery as well. No vascular surgery intervention planned at this time. Patient going for amputation today. Continue vancomycin, Zosyn. Appreciate infectious disease recommendations. 2. Diabetes mellitus: Monitor Accu-Cheks and cover with sliding scale insulin. Continue Levemir, prandial insulin. 3. Hypertension: Continue amlodipine, metoprolol, ramipril. 4. DVT prophylaxis: Heparin. Curly Varela MD Jun 26, 2017 14:06
[2017-06-26 16:00] VITALS: BP 164/80; PULSE 71; RESP 20; TEMP 98.6; O2SAT 95
[2017-06-26 20:44] VITALS: BP 163/82; PULSE 71; RESP 17; TEMP 98.6; O2SAT 100
[2017-06-26] MEDS: INSULIN DETEMIR 100 UNITS/ML VIAL SQ SCH (21:00)
[2017-06-26] MEDS: ATORVASTATIN 80 MG TAB PO SCH (22:09)
[2017-06-26] MEDS: GABAPENTIN 300 MG CAP PO SCH (22:09)
[2017-06-26] MEDS: TERAZOSIN HCL 1 MG CAP PO SCH (22:09)
--- NOTE | 2017-06-26 23:07 | PD.POD ---
Subjective Podiatric Problems Right hallux osteomyelitis, s/p bone biopsy Past Med/Surg/Social History Social History Smoking Status: Never Smoker Objective Vital Signs Vital Signs Date Time Temp Pulse Resp B/P (MAP) Pulse Ox O2 Delivery O2 Flow Rate FiO2 06/26/17 20:44 98.6 71 17 163/82 (109) 100 06/26/17 16:00 98.6 71 20 164/80 (108) 95 06/26/17 12:00 98.3 62 20 133/72 (92) 96 06/26/17 08:00 98.3 68 20 156/85 (108) 95 06/26/17 07:00 Room Air 06/26/17 04:30 98.4 62 14 140/72 (94) 95 06/25/17 23:43 98.1 64 14 136/72 (93) 97 Coded Allergies: metformin (Verified Allergy, Unknown, 12/14/16) clopidogrel (Unverified Adverse Reaction, Intermediate, Nausea/Vomiting, ) Assessment & Plan A/P Right hallux osteomyelitis, Case moved to tomorrow due to no OR availability. NPO after midnight Tadeo Preston DPM Jun 26, 2017 23:07
[2017-06-27] VITALS: BP 138/75; PULSE 64; RESP 20; TEMP 98.2; O2SAT 96
[2017-06-27 04:00] VITALS: BP 150/79; PULSE 66; RESP 20; TEMP 98; O2SAT 95
[2017-06-27] MEDS ORDERED: LACTATED RINGER'S 1000 ML IV PRN (04:45)
[2017-06-27] MEDS ORDERED: CHLORHEXIDINE GLUCONATE 2 % 1 PACK (2 CLOTHS) TOPICAL PRN (04:45)
[2017-06-27] MEDS ORDERED: SODIUM CHLORID 0.9% 500 ML IV PRN (04:45)
[2017-06-27] MEDS ORDERED: POVIDONE IODINE 5% (ANTISEPSIS KIT) 4 APPLICATIONS EACH NARE PRN (04:45)
[2017-06-27] MEDS: PIPERACIL-TAZO 3.375 GM PREMIX 50 ML IV SCH ×4 (05:01→22:12)
[2017-06-27] MEDS: VANCOMYCIN INJ 1,750 MG in SODIUM CHLORID 0.9% 500 ML INJ 500 ML IV SCH (05:02)
[2017-06-27] MEDS: HEPARIN SODIUM - SQ 10,000 UNITS/ML VIAL SQ SCH ×3 (05:02→22:25)
[2017-06-27] MEDS: INSULIN ASPART 1,000 UNITS/10 ML VIAL SQ SCH ×3 (08:08→16:49)
[2017-06-27] MEDS: amLODIPine BESYLATE 5 MG TAB PO SCH (09:00)
[2017-06-27] MEDS: SODIUM CHLORIDE 0.9% FLUSH 10 ML FLUSH IV FLUSH SCH ×2 (09:00→22:24)
[2017-06-27] MEDS: COLLAGENASE OINT 30 GM TUBE TOPICAL SCH (09:00)
[2017-06-27] MEDS: DOCUSATE SODIUM 100 MG CAP PO SCH ×2 (09:16→22:13)
[2017-06-27] MEDS: RAMIPRIL 5 MG CAP PO SCH (09:16)
[2017-06-27] MEDS: METOPROLOL TARTRATE 50 MG TAB PO SCH ×2 (09:16→22:13)
[2017-06-27] MEDS: ASPIRIN EC 81 MG TABEC PO SCH (09:16)
[2017-06-27 09:37] LABS: CALCIUM 8.4 MG/DL (8.5-10.1); CREATININE 1.44 MG/DL (0.60-1.30)
[2017-06-27] MEDS ORDERED: ROCURONIUM INJ 50 MG/5 ML SYRINGE IV PUSH ONE (12:00)
[2017-06-27] MEDS ORDERED: LIDOCAINE HCL 1% PF 5 ML SYRINGE OTHER ONE (12:00)
[2017-06-27] MEDS ORDERED: ONDANSETRON HCL 4 MG/2 ML VIAL IV ONE (12:00)
[2017-06-27] MEDS ORDERED: ePHEDrine/NS 25 MG/5 ML SYRINGE IV ONE (12:00)
[2017-06-27] MEDS ORDERED: PROPOFOL 200 MG/20 ML AMP IV ONE (12:00)
[2017-06-27] MEDS ORDERED: DEXAMETHASONE SOD PHOS 4 MG/ML VIAL IV ONE (12:00)
[2017-06-27] MEDS ORDERED: BUPIVACAINE HCL PF 0.25% 30 ML VIAL ONE (12:01)
[2017-06-27] MEDS ORDERED: BACITRACIN TOP OINT 15 GM TUBE ONE (12:02)
[2017-06-27] MEDS ORDERED: NEOMYCIN/POLYMYXIN 1 ML G.U. IRRIGANT ONE (12:03)
[2017-06-27] MEDS ORDERED: BUPIVACAINE HCL PF 0.5% 30 ML VIAL ONE (12:09)
[2017-06-27] MEDS ORDERED: LIDOCAINE HCL 1% PF 10 ML VIAL ONE (12:09)
--- NOTE | 2017-06-27 13:38 | HHI.PR ---
Immediate Post Op Note Procedure Date: Jun 27, 2017 Pre Op Diagnosis: Osteomyelitis right distal hallux Post Op Diagnosis: Same Surgeon: Tadeo Preston DPM [employer] Attendant(s): Staff Procedure: Amputation distal right hallux with bone biopsy Findings: plantar wound noted to distal hallux probing to bone with absent nail dorsally. No erythema, no purulence noted. Fish-mouth incision made to remove distal hallux and minimal bleeding occurred. Distal aspect of proximal phalanx of right hallux removed and sent as bone biopsy. Culture taken of tissue distal right hallux. Irrigation and primary closure with 2-0 nylon, followed by xeroform, 4x4, cast padding, josiah with no compression. Weightbearing as tolerated right foot in surgical shoe. No further surgery planned. Ok to d/c home tomorrow with surgical shoe and follow up in 1 week in clinic for dressing change. Keep clean,dry, intact in meantime. Will follow bone biopsy as outpatient. Additional Information: No tourniquet utilized. Minimal bleeding noted. Discussed further surgery may be needed based on healing over the next few weeks. Complications: None Specimen(s) removed: 1. culture right hallux 2. distal hallux right to pathology 3. bone biopsy distal aspect of right hallux proximal phalanx to pathology Estimated blood loss: Minimal, less than 1mL Anesthesia: MAC, Local (10mL 0.25% marcaine plain) Drains: None Tourniquet time (min at mmHg) n/a Patient to: PACU Patient Condition: Good Date/Time of Procedure: SEE SURGICAL CARE RECORD Tadeo Preston DPM Jun 27, 2017 13:38
[2017-06-27] MEDS ORDERED: DO NOT ADM ANY ANTICOAGULANT DRUGS PRN (13:40)
--- NOTE | 2017-06-27 15:30 | HHI.PR ---
Subjective Remarks Follow up diabetes, osteomyelitis. Patient just returned from surgery. States that he is "starting to feel a little pain". Otherwise no complaints at this time. Objective Vitals Vital Signs Date Time Temp Pulse Resp B/P (MAP) Pulse Ox O2 Delivery O2 Flow Rate FiO2 06/27/17 14:30 98.4 60 12 150/74 (99) 96 Room Air 06/27/17 14:15 61 12 151/78 (102) 100 Room Air 06/27/17 14:00 60 12 150/78 (102) 100 Room Air 06/27/17 13:45 63 12 142/69 (93) 99 Nasal Cannula 2 06/27/17 13:40 98.8 63 12 118/65 (82) 99 Nasal Cannula 2 06/27/17 07:30 Room Air 06/27/17 04:00 98.0 66 20 150/79 (102) 95 06/27/17 00:00 98.2 64 20 138/75 (96) 96 06/26/17 20:44 98.6 71 17 163/82 (109) 100 06/26/17 16:00 98.6 71 20 164/80 (108) 95 I/O 06/26/17 06/26/17 06/26/17 06/27/17 06/27/17 06/27/17 07:00 15:00 23:00 07:00 15:00 23:00 Intake Total 50 ml 150 ml 240 ml 530 ml Output Total 1 ml Balance 50 ml 150 ml 240 ml 529 ml Intake Oral 0 ml 240 ml 30 ml IV Total 50 ml 150 ml 0 ml Other 500 ml Estimated Blood Loss 1 ml # Voids 5 2 0 # Bowel Movements 0 1 Result Diagram: 06/26/17 0833 06/27/17 0650 Imaging Last Impressions Carotid Artery Ultrasound 06/22/17 0000 Signed Impressions: Service Date/Time: Thursday, June 22, 2017 20:50 - CONCLUSION: No hemodynamically significant stenosis within the carotid arteries. Right vertebral artery is nonvisualized but antegrade flow is noted within the left vertebral artery. Antonio Mcghee MD Aorta w/Runoff CTA 06/20/17 0000 Signed Impressions: Service Date/Time: Tuesday, June 20, 2017 14:56 - CONCLUSION: Trifurcation disease bilaterally worse on the left, the affected side than the right, the side with the wound. Plantar arch is poorly formed probably by the anterior tibial artery. The posterior tibial origin provide significant runoff to the foot. Js Martin MD FACR Foot MRI 06/19/17 0000 Signed Impressions: Service Date/Time: Monday, June 19, 2017 19:18 - CONCLUSION: Osteomyelitis distal phalanx great toe Danny Lancaster MD Toe X-Ray 06/18/17 0000 Signed Impressions: Service Date/Time: Sunday, June 18, 2017 20:10 - CONCLUSION: 1. No acute findings. Franco Agustin MD Objective Remarks General: No acute distress. Heart: Regular rate and rhythm. No murmur. Lungs: Clear to auscultation bilaterally. No wheezes, rales, or rhonchi. Breathing is nonlabored. Abdomen: Soft, nontender, nondistended. Extremities: No lower extremity edema. Right foot bandaged. SCDs. Psych: Alert and oriented. Procedures 06/27/17 Amputation distal right hallux with bone biopsy Urinary Catheter: No Vascular Central Line Catheter: No A/P Problem List: (1) Cellulitis ICD Code: L03.90 - Cellulitis, unspecified (2) CAD (coronary artery disease), [place] coronary artery ICD Code: I25.10 - Atherosclerotic heart disease of [place] coronary artery without angina pectoris Status: Chronic (3) Hypertension ICD Code: I10 - Essential (primary) hypertension Status: Chronic Assessment and Plan 1. Right great toe osteomyelitis: Appreciate podiatry recommendations. Patient has been evaluated by vascular surgery as well. No vascular surgery intervention planned at this time. S/P amputation of the distal right hallux with bone biopsy. Continue vancomycin, Zosyn. Appreciate infectious disease recommendations. 2. Diabetes mellitus: Monitor Accu-Cheks and cover with sliding scale insulin. Continue Levemir, prandial insulin. 3. Hypertension: Continue amlodipine, metoprolol, ramipril. 4. DVT prophylaxis: Heparin. Discharge Planning Possible discharge home tomorrow per podiatry. Curly Varela MD Jun 27, 2017 15:30
--- NOTE | 2017-06-27 15:37 | RADRPT ---
EXAM DATE/TIME: 06/27/2017 14:01 [facility] COMPARISON: No previous studies available for comparison. INDICATIONS : Post op right foot, 1st digit amputation. MEDICAL HISTORY : Congestive heart failure. Hypertension. Glaucoma. Glasses. Numbness. Chest pain. Hiatal hernia. Joint pain. Diabetes. Skin cancer. SURGICAL HISTORY : CABG. Right knee bursectomy with wound vac. Right lung puncture. ENCOUNTER: Initial ACUITY: 1 day PAIN SCORE: 2/10 LOCATION: Right foot FINDINGS: 3 views of the right foot reveal a amputation of the great toe. This is across the proximal phalanx w ithin its mid diaphyseal region. The remaining bony structures are unremarkable. No radiopaque foreig n bodies. Spurring of the calcaneus. No soft tissue swelling. CONCLUSION: Amputation of the great toe. Kingsley Yuen Jr., MD on June 27, 2017 at 15:34 Board Certified Radiologist. This report was verified electronically.
[2017-06-27 16:03] VITALS: BP 146/75; PULSE 69; RESP 20; TEMP 97.5; O2SAT 95
[2017-06-27 20:35] VITALS: BP 145/72; PULSE 67; TEMP 98.4; O2SAT 94
[2017-06-27] MEDS: GABAPENTIN 300 MG CAP PO SCH (22:12)
[2017-06-27] MEDS: ATORVASTATIN 80 MG TAB PO SCH (22:14)
[2017-06-27] MEDS: INSULIN DETEMIR 100 UNITS/ML VIAL SQ SCH (22:24)
[2017-06-27] MEDS: TERAZOSIN HCL 1 MG CAP PO SCH (22:24)
[2017-06-28] VITALS: BP 162/83; PULSE 64; RESP 18; TEMP 97.4; O2SAT 96
[2017-06-28 04:00] VITALS: BP 146/74; PULSE 60; RESP 18; TEMP 97.8; O2SAT 96
[2017-06-28] MEDS: PIPERACIL-TAZO 3.375 GM PREMIX 50 ML IV SCH (05:25)
[2017-06-28] MEDS: HEPARIN SODIUM - SQ 10,000 UNITS/ML VIAL SQ SCH ×3 (06:02→21:30)
[2017-06-28] MEDS: VANCOMYCIN INJ 1,750 MG in SODIUM CHLORID 0.9% 500 ML INJ 500 ML IV SCH (06:02)
[2017-06-28 08:00] VITALS: BP 125/69; PULSE 59; RESP 16; TEMP 98.9; O2SAT 97
[2017-06-28] MEDS: SODIUM CHLORIDE 0.9% FLUSH 10 ML FLUSH IV FLUSH SCH ×2 (08:39→21:32)
[2017-06-28] MEDS: INSULIN ASPART 1,000 UNITS/10 ML VIAL SQ SCH ×3 (08:39→17:03)
[2017-06-28] MEDS: DOCUSATE SODIUM 100 MG CAP PO SCH ×2 (08:40→21:31)
[2017-06-28] MEDS: amLODIPine BESYLATE 5 MG TAB PO SCH (08:40)
[2017-06-28] MEDS: RAMIPRIL 5 MG CAP PO SCH (08:40)
[2017-06-28] MEDS: METOPROLOL TARTRATE 50 MG TAB PO SCH ×2 (08:40→21:31)
[2017-06-28] MEDS: ASPIRIN EC 81 MG TABEC PO SCH (08:40)
[2017-06-28] MEDS: COLLAGENASE OINT 30 GM TUBE TOPICAL SCH (09:00)
[2017-06-28 10:03] LABS: AUTOMATED NEUTROPHIL # 6.5 TH/MM3 (1.8-7.7); BASOPHIL # 0.1 TH/MM3 (0-0.2); BASOPHIL % 0.7 % (0.0-2.0); EOSINOPHIL # 0.1 TH/MM3 (0-0.4); EOSINOPHIL % 1.3 % (0.0-4.0); HEMATOCRIT 36.7 % (39.0-51.0); HEMOGLOBIN 12.9 GM/DL (13.0-17.0); LYMPHOCYTE # 1.6 TH/MM3 (1.0-4.8); MEAN CELL VOLUME 88.5 FL (80.0-100.0); MEAN CORPUSCULAR HEMOGLOBIN 31.2 PG (27.0-34.0); MEAN CORPUSCULAR HGB CONC 35.2 % (32.0-36.0); MONO % 5.7 % (0.0-8.0); MONOCYTE # 0.5 TH/MM3 (0-0.9); NEUT % 74.3 % (16.0-70.0); PLATELET COUNT 277 TH/MM3 (150-450); RED BLOOD COUNT 4.14 MIL/MM3 (4.50-5.90); RED CELL DISTRIBUTION WIDTH 13.1 % (11.6-17.2); WHITE BLOOD COUNT 8.7 TH/MM3 (4.0-11.0)
[2017-06-28 10:11] LABS: BICARBONATE 26.7 MEQ/L (21.0-32.0); CALCIUM 8.6 MG/DL (8.5-10.1); CREATININE 1.79 MG/DL (0.60-1.30)
--- NOTE | 2017-06-28 10:21 | HHI.DCPOC ---
Discharge Care Plan Diagnosis: (1) Osteomyelitis of toe of right foot (2) Diabetic foot infection (3) DM type 2 (diabetes mellitus, type 2) (4) Hypertension Goals to Promote Your Health * To prevent worsening of your condition and complications * To maintain your health at the optimal level Directions to Meet Your Goals Take your medications as prescribed Follow your dietary instruction Follow activity as directed Keep your appointments as scheduled Take your immunizations and boosters as scheduled If your symptoms worsen call your PCP, if no PCP go to Urgent Care Center or Emergency Room Smoking is Dangerous to Your Health. Avoid second hand smoke Call the 24-hour hour crisis hotline for domestic abuse at Curly Varela MD Jun 28, 2017 10:21
[2017-06-28] MEDS ORDERED: NOVOLOGP2 SQ (10:31)
[2017-06-28] MEDS ORDERED: LEVEMIR SQ (10:31)
--- NOTE | 2017-06-28 10:31 | HHI.PR ---
Subjective Remarks Follow up acute kidney injury, osteomyelitis. Patient reports "very little pain ". No other complaints at this time. Denies chest pain, dyspnea. Objective Vitals Vital Signs Date Time Temp Pulse Resp B/P (MAP) Pulse Ox O2 Delivery O2 Flow Rate FiO2 06/28/17 08:00 Room Air 06/28/17 04:00 97.8 60 18 146/74 (98) 96 06/28/17 04:00 Room Air 06/28/17 00:00 97.4 64 18 162/83 (109) 96 06/28/17 00:00 Room Air 06/27/17 20:35 Room Air 06/27/17 20:35 98.4 67 145/72 (96) 94 06/27/17 16:03 97.5 69 20 146/75 (98) 95 06/27/17 14:30 98.4 60 12 150/74 (99) 96 Room Air 06/27/17 14:15 61 12 151/78 (102) 100 Room Air 06/27/17 14:00 60 12 150/78 (102) 100 Room Air 06/27/17 13:45 63 12 142/69 (93) 99 Nasal Cannula 2 06/27/17 13:40 98.8 63 12 118/65 (82) 99 Nasal Cannula 2 I/O 06/27/17 06/27/17 06/27/17 06/28/17 06/28/17 06/28/17 07:00 15:00 23:00 07:00 15:00 23:00 Intake Total 240 ml 580 ml 200 ml 50 ml Output Total 1 ml 1200 ml Balance 240 ml 579 ml -1000 ml 50 ml Intake Oral 240 ml 30 ml 0 ml IV Total 50 ml 200 ml 50 ml Other 500 ml Output Urine Total 1200 ml Estimated Blood Loss 1 ml # Voids 2 0 3 # Bowel Movements 1 0 Result Diagram: 06/28/1792306/28/17923 Imaging Last Impressions Foot X-Ray 06/27/17 0000 Signed Impressions: Service Date/Time: Tuesday, June 27, 2017 14:01 - CONCLUSION: Amputation of the great toe. Kingsley Yuen Jr., MD Carotid Artery Ultrasound 06/22/17 0000 Signed Impressions: Service Date/Time: Thursday, June 22, 2017 20:50 - CONCLUSION: No hemodynamically significant stenosis within the carotid arteries. Right vertebral artery is nonvisualized but antegrade flow is noted within the left vertebral artery. Antonio Mcghee MD Aorta w/Runoff CTA 06/20/17 0000 Signed Impressions: Service Date/Time: Tuesday, June 20, 2017 14:56 - CONCLUSION: Trifurcation disease bilaterally worse on the left, the affected side than the right, the side with the wound. Plantar arch is poorly formed probably by the anterior tibial artery. The posterior tibial origin provide significant runoff to the foot. Js Martin MD FACR Foot MRI 06/19/17 0000 Signed Impressions: Service Date/Time: Monday, June 19, 2017 19:18 - CONCLUSION: Osteomyelitis distal phalanx great toe Danny Lancaster MD Toe X-Ray 06/18/17 0000 Signed Impressions: Service Date/Time: Sunday, June 18, 2017 20:10 - CONCLUSION: 1. No acute findings. Franco Agustin MD Objective Remarks General: No acute distress. Heart: Regular rate and rhythm. No murmur. Lungs: Clear to auscultation bilaterally. No wheezes, rales, or rhonchi. Breathing is nonlabored. Abdomen: Soft, nontender, nondistended. Extremities: No lower extremity edema. Right foot bandaged. Psych: Alert and oriented. Procedures 06/27/17 Amputation distal right hallux with bone biopsy Urinary Catheter: No Vascular Central Line Catheter: No A/P Problem List: (1) Cellulitis ICD Code: L03.90 - Cellulitis, unspecified (2) CAD (coronary artery disease), [place] coronary artery ICD Code: I25.10 - Atherosclerotic heart disease of [place] coronary artery without angina pectoris Status: Chronic (3) Hypertension ICD Code: I10 - Essential (primary) hypertension Status: Chronic (4) Acute kidney injury ICD Code: N17.9 - Acute kidney failure, unspecified Assessment and Plan 1. Right great toe osteomyelitis: Appreciate podiatry recommendations. Patient has been evaluated by vascular surgery as well. No vascular surgery intervention planned at this time. S/P amputation of the distal right hallux with bone biopsy. Appreciate infectious disease recommendations. 2. Diabetes mellitus: Monitor Accu-Cheks and cover with sliding scale insulin. Continue Levemir, prandial insulin. 3. Hypertension: Continue amlodipine, metoprolol, ramipril. 4. Acute kidney injury: Possibly secondary to vancomycin. Will discontinue vancomycin and start IV fluids. Monitor creatinine. 5. DVT prophylaxis: Heparin. Discharge Planning Plan for discharge home soon pending improvement in renal function. Curly Varela MD Jun 28, 2017 10:31
[2017-06-28] MEDS: NS + KCL 20 MEQ INJ 1,000 ML IV SCH ×2 (10:45→21:29)
[2017-06-28] MEDS ORDERED: SULFAMETHOXAZOLE-TRIMETHOPRIM DS 800-160 MG TAB PO SCH (10:45)
[2017-06-28 12:00] VITALS: BP 123/58; PULSE 55; RESP 16; TEMP 98.2; O2SAT 96
--- NOTE | 2017-06-28 14:31 | HHI.IDPN ---
Subjective Subjective Remarks pt is sp R hallux amputation bone path + for chronic osteo Creatinine went up gradually while on vanco Antibiotics vancomycin Allergies: Coded Allergies: metformin (Verified Allergy, Unknown, 12/14/16) clopidogrel (Unverified Adverse Reaction, Intermediate, Nausea/Vomiting, ) Objective . Vital Signs Date Time Temp Pulse Resp B/P (MAP) Pulse Ox O2 Delivery O2 Flow Rate FiO2 06/28/17 12:00 98.2 55 16 123/58 (79) 96 06/28/17 08:00 Room Air 06/28/17 08:00 98.9 59 16 125/69 (87) 97 06/28/17 04:00 97.8 60 18 146/74 (98) 96 06/28/17 04:00 Room Air 06/28/17 00:00 97.4 64 18 162/83 (109) 96 06/28/17 00:00 Room Air 06/27/17 20:35 Room Air 06/27/17 20:35 98.4 67 145/72 (96) 94 06/27/17 16:03 97.5 69 20 146/75 (98) 95 06/27/17 14:30 98.4 60 12 150/74 (99) 96 Room Air 06/28/17 06/28/17 06/29/17 15:00 23:00 07:00 Intake Total 517 ml Balance 517 ml IV Total 517 ml . Laboratory Tests Test 06/28/17 09:24 White Blood Count 8.7 TH/MM3 Red Blood Count 4.14 MIL/MM3 Hemoglobin 12.9 GM/DL Hematocrit 36.7 % Mean Corpuscular Volume 88.5 FL Mean Corpuscular Hemoglobin 31.2 PG Mean Corpuscular Hemoglobin Concent 35.2 % Red Cell Distribution Width 13.1 % Platelet Count 277 TH/MM3 Mean Platelet Volume 8.0 FL Neutrophils (%) (Auto) 74.3 % Lymphocytes (%) (Auto) 18.0 % Monocytes (%) (Auto) 5.7 % Eosinophils (%) (Auto) 1.3 % Basophils (%) (Auto) 0.7 % Neutrophils # (Auto) 6.5 TH/MM3 Lymphocytes # (Auto) 1.6 TH/MM3 Monocytes # (Auto) 0.5 TH/MM3 Eosinophils # (Auto) 0.1 TH/MM3 Basophils # (Auto) 0.1 TH/MM3 CBC Comment DIFF FINAL Differential Comment Laboratory Tests Test 06/27/17 06:50 06/28/17 09:24 Blood Urea Nitrogen 17 MG/DL 20 MG/DL Creatinine 1.44 MG/DL 1.79 MG/DL Random Glucose 264 MG/DL 228 MG/DL Calcium Level 8.4 MG/DL 8.6 MG/DL Sodium Level 137 MEQ/L 135 MEQ/L Potassium Level 3.8 MEQ/L 3.5 MEQ/L Chloride Level 103 MEQ/L 98 MEQ/L Carbon Dioxide Level 26.0 MEQ/L 26.7 MEQ/L Anion Gap 8 MEQ/L 10 MEQ/L Estimat Glomerular Filtration Rate 50 ML/MIN 39 ML/MIN Microbiology Date/Time Source Procedure Growth Status 06/27/17 13:30 Wound Toe Fungal Smear - Final NO FUNGAL ELEMENTS SEEN. Resulted 06/27/17 13:30 Wound Toe Fungal Culture Pending Resulted 06/27/17 13:30 Wound Toe Acid Fast Stain Pending Worksheet 06/27/17 13:30 Wound Toe Mycobacterial Culture Pending Worksheet 06/27/17 13:30 Wound Toe Gram Stain - Final Resulted 06/27/17 13:30 Wound Culture - Preliminary S. Aureus Mrsa Resulted Imaging Last Impressions Foot X-Ray 06/27/17 0000 Signed Impressions: Service Date/Time: Tuesday, June 27, 2017 14:01 - CONCLUSION: Amputation of the great toe. Kingsley Yuen Jr., MD Carotid Artery Ultrasound 06/22/17 0000 Signed Impressions: Service Date/Time: Thursday, June 22, 2017 20:50 - CONCLUSION: No hemodynamically significant stenosis within the carotid arteries. Right vertebral artery is nonvisualized but antegrade flow is noted within the left vertebral artery. Antonio Mcghee MD Aorta w/Runoff CTA 06/20/17 0000 Signed Impressions: Service Date/Time: Tuesday, June 20, 2017 14:56 - CONCLUSION: Trifurcation disease bilaterally worse on the left, the affected side than the right, the side with the wound. Plantar arch is poorly formed probably by the anterior tibial artery. The posterior tibial origin provide significant runoff to the foot. Js Martin MD FACR Foot MRI 06/19/17 0000 Signed Impressions: Service Date/Time: Monday, June 19, 2017 19:18 - CONCLUSION: Osteomyelitis distal phalanx great toe Danny Lancaster MD Toe X-Ray 06/18/17 0000 Signed Impressions: Service Date/Time: Sunday, June 18, 2017 20:10 - CONCLUSION: 1. No acute findings. Franco Agustin MD Physical Exam CONSTITUTIONAL/GENERAL: This is an adequately nourished patient, in no apparent distress. TUBES/LINES/DRAINS: SKIN: No jaundice, rashes, or lesions. Skin temperature appropriate. Not diaphoretic. CARDIOVASCULAR: Regular rate and rhythm without murmurs, gallops, or rubs. No JVD. Peripheral pulses symmetric. RESPIRATORY/CHEST: Symmetric, unlabored respirations. Clear to auscultation. Breath sounds equal bilaterally. No wheezes, rales, or rhonchi. GASTROINTESTINAL: Abdomen soft, non-tender, nondistended. MUSCULOSKELETAL: Extremities without clubbing, cyanosis, or edema. R foot with dressing in place, x Remnant erthema and minimal edema on distal forefoot PrNEUROLOGICAL: Awake and alert. NOn focal Assessment & Plan Remarks DFI R hallux, MRSA Confiermed osteo R hallux, sp amputation DONAVON, vancomycin is siuspected as culprit -dc vancomycin and bactrim start Zyvox x 2 weeks monitor CBC and BMP weekly while on zyvox OK to dc home Laura Snell MD Jun 28, 2017 14:31
[2017-06-28 16:00] VITALS: BP 144/69; PULSE 58; RESP 16; TEMP 98.1; O2SAT 95
[2017-06-28] MEDS ORDERED: ZYVO600T PO (16:16)
[2017-06-28] MEDS: LINEZOLID 600 MG TAB PO SCH ×2 (17:02→21:31)
[2017-06-28 20:00] VITALS: BP 145/80; PULSE 62; RESP 18; TEMP 98.2; O2SAT 97
--- NOTE | 2017-06-28 20:49 | MB ---
cc: Peter Brannon MD,Teresita Garcia,Curtis Newman MD, [place] DPM DATE OF CONSULT: 06/28/2017 REASON FOR CONSULTATION: Vascular evaluation - second opinion. HISTORY: This 61-year-old hypertensive type 2 diabetic male with coronary artery disease status post 4 vessel CABG 2006, earlier this month injured his right foot on his work site. He describes "catching his right foot under a limb which compressed against the big toe." Afterwards he noticed the discoloration of the great toe nail bed and eventually developed erythema which globally involved the right great toe and extended onto the forefoot in conjunction with drainage from the injury site. He self treated himself at home for several days but when the process became more progressive, he presented to the emergency room for further evaluation and help with management. 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 He underwent right hallux amputation earlier this week without complication. His right foot is now bandaged with plans for him to be discharged and return to see Dr. Preston in 1 week. Presently he has discomfort at the right great toe amputation site. No fever, chills or symptoms of infection. During the course of his hospitalization, renal function parameters have deteriorated and he is currently undergoing hydration and additional investigation for this problem. Prior to the right foot injury he had noticed "tightness" within tendons of feet and Achilles region along with aching discomfort of both feet, particularly the arch areas which seemed to become intensified as his work day progressed. He has also noticed nocturnal muscle cramps in both calves. However, he denies symptoms of claudication or critical ischemia. He has chronic numbing paresthesias within both feet, typical for diabetic peripheral neuropathy. During this hospitalization he was begun on gabapentin which he reports as significantly relieved the neuropathic symptoms. PAST MEDICAL HISTORY: Diabetes mellitus. Diabetic neuropathy. Coronary artery disease, status post 5 vessel CABG 2006. Hypertension. Hyperlipidemia. BPH. SURGICAL HISTORY: CABG 2006. Right knee arthroscopy/I and D 2017. MEDICATIONS AND ALLERGIES: Are well documented in the med reconciliation form. PHYSICAL EXAMINATION: VITAL SIGNS: Temperature 98.8, pulse 80, respirations 14, BP 170/80. GENERAL: A well-developed, well-nourished physically fit appearing 61-year-old male with pleasant affect. NECK: Supple and free of masses, thyromegaly. No carotid bruits. No neck vein distention or HJR. CARDIAC: Rhythm is sinus. No rubs, gallops or murmurs. Well healed sternotomy noted. ABDOMEN: Soft, nontender. No hepatic, splenic enlargement, no palpable aneurysm. EXTREMITIES: Good joint range of motion. The right foot is surgically bandaged and I did not remove the bandage. Femoral and popliteal pulses are 2+ and symmetrical. Pedal pulses are nonpalpable. Doppler flow robust within the dorsalis pedis arteries bilaterally. No edema. Negative Ana sign. NEUROLOGIC: Stocking glove hypesthesia typical of diabetic neuropathy, moderately advanced. No gross lateralizing deficits. I reviewed the admission lab and radiographic studies. IMPRESSION: 1. Status post right hallux amputation for posttraumatic osteomyelitis. 2. 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 3. Type 2 diabetes mellitus, hypertension, hyperlipidemia, coronary artery disease, status post coronary artery bypass graft. RECOMMENDATIONS: I agree with current treatment plans and recommendations outlined by Dr. Garcia. Although this gentleman has significant bilateral infrapopliteal arterial occlusive disease, he appears to have uninterrupted perfusion to both feet maintained via patent anterior tibial arteries. Hopefully, perfusion will be adequate to support primary and complete healing of the amputation incision. He does appear to have a focal stenosis within the right mid anterior tibial. If there are any indications of any early healing deficiencies, he could potentially benefit from angiography and endovascular angioplasty of this area but I doubt that such will become necessary. Thank you for allowing me to participate in this gentleman's care. Peter Brannon MD JTS/rt , 06:08 PM , 08:48 PM
[2017-06-28] MEDS: INSULIN DETEMIR 100 UNITS/ML VIAL SQ SCH (21:30)
[2017-06-28] MEDS: TERAZOSIN HCL 1 MG CAP PO SCH (21:31)
[2017-06-28] MEDS: ATORVASTATIN 80 MG TAB PO SCH (21:31)
[2017-06-28] MEDS: GABAPENTIN 300 MG CAP PO SCH (21:32)
[2017-06-29] VITALS: BP 133/73; PULSE 68; RESP 19; TEMP 98.8; O2SAT 97
[2017-06-29 04:00] VITALS: BP 108/58; PULSE 62; RESP 18; TEMP 98.4; O2SAT 95
[2017-06-29] MEDS: HEPARIN SODIUM - SQ 10,000 UNITS/ML VIAL SQ SCH (05:15)
[2017-06-29] MEDS: NS + KCL 20 MEQ INJ 1,000 ML IV SCH (05:16)
[2017-06-29 08:00] VITALS: BP 143/76; PULSE 61; RESP 20; TEMP 98; O2SAT 96
[2017-06-29 08:48] LABS: BASOPHIL # 0.1 TH/MM3 (0-0.2); BASOPHIL % 0.7 % (0.0-2.0); EOSINOPHIL # 0.1 TH/MM3 (0-0.4); EOSINOPHIL % 1.8 % (0.0-4.0); HEMATOCRIT 34.5 % (39.0-51.0); HEMOGLOBIN 12.1 GM/DL (13.0-17.0); LYMPH % 18.2 % (9.0-44.0); LYMPHOCYTE # 1.3 TH/MM3 (1.0-4.8); MEAN CELL VOLUME 87.9 FL (80.0-100.0); MEAN CORPUSCULAR HEMOGLOBIN 30.7 PG (27.0-34.0); MEAN PLATELET VOLUME 7.8 FL (7.0-11.0); MONO % 7.5 % (0.0-8.0); MONOCYTE # 0.5 TH/MM3 (0-0.9); NEUT % 71.8 % (16.0-70.0); PLATELET COUNT 234 TH/MM3 (150-450); RED BLOOD COUNT 3.92 MIL/MM3 (4.50-5.90); RED CELL DISTRIBUTION WIDTH 13.2 % (11.6-17.2)
[2017-06-29] MEDS: ASPIRIN EC 81 MG TABEC PO SCH (08:57)
[2017-06-29] MEDS: RAMIPRIL 5 MG CAP PO SCH (08:57)
[2017-06-29] MEDS: LINEZOLID 600 MG TAB PO SCH (08:57)
[2017-06-29] MEDS: DOCUSATE SODIUM 100 MG CAP PO SCH (08:57)
[2017-06-29] MEDS: METOPROLOL TARTRATE 50 MG TAB PO SCH (08:57)
[2017-06-29] MEDS: COLLAGENASE OINT 30 GM TUBE TOPICAL SCH (09:00)
[2017-06-29] MEDS: amLODIPine BESYLATE 5 MG TAB PO SCH (09:00)
[2017-06-29 09:11] LABS: BICARBONATE 27.2 MEQ/L (21.0-32.0); CALCIUM 8.9 MG/DL (8.5-10.1); CREATININE 1.45 MG/DL (0.60-1.30)
[2017-06-29] MEDS: INSULIN ASPART 1,000 UNITS/10 ML VIAL SQ SCH (09:11)
[2017-06-29] MEDS: SODIUM CHLORIDE 0.9% FLUSH 10 ML FLUSH IV FLUSH SCH (09:11)
[2017-06-29] MEDS ORDERED: NEUR300C PO (09:31)
--- NOTE | 2017-06-29 09:34 | HHI.DS ---
Discharge Summary Admission Date Jun 19, 2017 at 21:43 Discharge Date: Jun 29, 2017 Admitting Diagnosis diabetic infection to right foot (1) Cellulitis ICD Code: L03.90 - Cellulitis, unspecified (2) CAD (coronary artery disease), [place] coronary artery ICD Code: I25.10 - Atherosclerotic heart disease of [place] coronary artery without angina pectoris Status: Chronic (3) Hypertension ICD Code: I10 - Essential (primary) hypertension Status: Chronic (4) Acute kidney injury ICD Code: N17.9 - Acute kidney failure, unspecified Procedures 06/27/17 Amputation distal right hallux with bone biopsy Brief History - From Admission 61 y/o male with a history of DM, HTN, CAD, HLD and diabetic neuropathy presented to the ED with complaints of increased pain to right great toe. He denies pain currently,but when he walks the pain is a 10/10, burning pain, with radiation up ankle and no associated symptoms. He states 1 week ago he caught his toe under a tree limb and ripped his toe nail up. He was cleaning it at home with peroxide and Epson salt. On Sunday he was working with metal and a piece of burning metal fell on his shoe and he did not feel it until he was home and noticed a hole in his sock. He eventually developed a blister that has now opened and scabbed over. He denies any chest pain, sob, fever or chills. He states his sugar has been running 250-300s at home because he has been out of all medications for the last 2 months since he has changed jobs. CBC/BMP: 06/29/17 0738 06/29/17 0738 Significant Findings Laboratory Tests Test 06/27/17 06:50 06/28/17 09:24 06/29/17 07:38 Creatinine 1.44 MG/DL (0.60-1.30) 1.79 MG/DL (0.60-1.30) 1.45 MG/DL (0.60-1.30) Random Glucose 264 MG/DL (74-106) 228 MG/DL (74-106) 134 MG/DL (74-106) Calcium Level 8.4 MG/DL (8.5-10.1) Estimat Glomerular Filtration Rate 50 ML/MIN (>89) 39 ML/MIN (>89) 49 ML/MIN (>89) Red Blood Count 4.14 MIL/MM3 (4.50-5.90) 3.92 MIL/MM3 (4.50-5.90) Hemoglobin 12.9 GM/DL (13.0-17.0) 12.1 GM/DL (13.0-17.0) Hematocrit 36.7 % (39.0-51.0) 34.5 % (39.0-51.0) Neutrophils (%) (Auto) 74.3 % (16.0-70.0) 71.8 % (16.0-70.0) Blood Urea Nitrogen 20 MG/DL (7-18) Sodium Level 135 MEQ/L (136-145) Imaging Last Impressions Foot X-Ray 06/27/17 0000 Signed Impressions: Service Date/Time: Tuesday, June 27, 2017 14:01 - CONCLUSION: Amputation of the great toe. Kingsley Yuen Jr., MD Carotid Artery Ultrasound 06/22/17 0000 Signed Impressions: Service Date/Time: Thursday, June 22, 2017 20:50 - CONCLUSION: No hemodynamically significant stenosis within the carotid arteries. Right vertebral artery is nonvisualized but antegrade flow is noted within the left vertebral artery. Antonio Mcghee MD Aorta w/Runoff CTA 06/20/17 0000 Signed Impressions: Service Date/Time: Tuesday, June 20, 2017 14:56 - CONCLUSION: Trifurcation disease bilaterally worse on the left, the affected side than the right, the side with the wound. Plantar arch is poorly formed probably by the anterior tibial artery. The posterior tibial origin provide significant runoff to the foot. Js Martin MD FACR Foot MRI 06/19/17 0000 Signed Impressions: Service Date/Time: Monday, June 19, 2017 19:18 - CONCLUSION: Osteomyelitis distal phalanx great toe Danny Lancaster MD Toe X-Ray 06/18/17 0000 Signed Impressions: Service Date/Time: Sunday, June 18, 2017 20:10 - CONCLUSION: 1. No acute findings. Franco Agustin MD PE at Discharge General: No acute distress. Heart: Regular rate and rhythm. No murmur. Lungs: Clear to auscultation bilaterally. No wheezes, rales, or rhonchi. Breathing is nonlabored. Abdomen: Soft, nontender, nondistended. Extremities: No lower extremity edema. Right foot bandaged. Psych: Alert and oriented. Pt update on day of discharge No complaints at this time. Pain is well controlled. He feels the gabapentin is helping the neuropathy. He wants to go home today. Hospital Course Patient was admitted for management of cellulitis of the right great toe. MRI showed osteomyelitis of the distal phalanx of the right great toe. Dietary was consulted. Patient was continued on antibiotics. Infectious disease was consulted. Vascular surgery was consulted. Patient was cleared by vascular surgery to proceed with amputation of the distal right great toe, which was done on 06/27/17. Patient was cleared by podiatry for discharge. Creatinine increased, and this was felt to be secondary to vancomycin. The vancomycin was discontinued and the patient was given IV fluids. Creatinine did improve. Second opinion for vascular surgery was obtained and patient was advised to follow-up as outpatient. He was felt to be stable for discharge home. Infectious disease recommended Zyvox for 2 weeks. Pt Condition on Discharge: Stable Discharge Disposition: Discharge Home Discharge Time: > 30 minutes Discharge Instructions DIET: Follow Instructions for: Diabetic Diet Activities you can perform: Regular-No Restrictions Other Activity Instructions: Weight bearing as tolerated in post-op shoe Follow up Referrals: PCP Follow-up - 2 Weeks Podiatry - 1 Week with Tadeo Preston DPM Vascular Surgery - 1 Week New Medications: Linezolid (Zyvox) 600 Mg Tab 600 MG PO Q12H for Infection for 14 Days, #28 TAB 0 Refills Gabapentin (Neurontin) 300 Mg Cap 300 MG PO HS for neuropathy, #30 CAP 0 Refills Insulin Aspart Inj (Novolog Inj) 1,000 Unit/10 Ml Vial 7 UNITS SQ TIDAC for Blood Sugar Management, #90 INJECTION 0 Refills Insulin Detemir Inj (Levemir Inj) 1,000 unit/ 10 ML Vial 22 UNITS SQ HS for Blood Sugar Management, #30 INJECTION 0 Refills Do not mix with any other Insulin. Linezolid (Zyvox) 600 Mg Tab 600 MG PO Q12HR for Infection for 14 Days, #28 TAB 0 Refills Continued Medications: Amlodipine (Amlodipine) 5 Mg Tab 5 MG PO DAILY for Blood Pressure Management, #30 TAB [address] (Aspirin Adult Low Strength) 81 Mg Tabdr 81 MG PO DAILY, TAB Cholecalciferol (Vitamin D3) 1,000 Unit Tab 1000 UNITS PO HS for Nutritional Supplement, #1 BOTTLE 0 Refills Coenzyme Q10 (Ubidecarenone) (Co Q 10) 100 Mg Cap 100 MG PO HS Cyanocobalamin (B12) 1,000 Mcg Tab 1000 MCG PO HS Linagliptin (Tradjenta) 5 Mg Tab 5 MG PO DAILY for Blood Sugar Management, #30 TAB 0 Refills Metoprolol Tartrate (Lopressor) 50 Mg Tab 50 MG PO BID, #60 TAB 0 Refills Multiple Vitamins W/ Minerals (Cerovite Senior) 1 Tab Tab 1 TAB PO DAILY Naproxen Sodium (Aleve) 220 Mg Capsule 220 MG PO BID PRN for MILD PAIN [place]-3 Fatty Acids (Fish Oil 1000 mg) 1 Cap Cap 1000 MG PO BID for Nutritional Supplement Ramipril (Ramipril) 5 Mg Cap 5 MG PO DAILY, #30 CAP 0 Refills Rosuvastatin (Crestor) 40 Mg Tab 40 MG PO HS for Cholesterol Management, #30 TAB 0 Refills Terazosin (Terazosin) 2 Mg Cap 4 MG PO HS, #30 CAP 0 Refills [Turmeric 800MG] () 800 MG PO DAILY Discontinued Medications: Glimepiride (Glimepiride) 4 Mg Tab 4 MG PO DAILY for Blood Sugar Management, #30 TAB 0 Refills Take with breakfast or first main meal Pioglitazone (Pioglitazone) 15 Mg Tab 15 MG PO DAILY for Blood Sugar Management, #30 TAB 0 Refills Potassium (Potassium) 99 Mg Tablet 99 MG PO HS Curly Varela MD Jun 29, 2017 09:34
[2017-06-30] MEDS ORDERED: PHARMACY ORDERED LAB ONE (05:45)
== END 2017-06-29 11:09 | disposition home or self-care (01) | DRG 617 ==
LOC: NEPE 19:10 → NEDA 22:29 → UNDOADMIN 22:29 → NEDA 22:45 → INTOOBSV 22:45 → NEPGCP 23:41 → OBSVTOIN 06-19 21:43 → N04B 06-21 17:37
PROVIDERS: ADMIT Family Medicine; ATTEND Family Medicine
PROC: 0JBQ0ZZ Excision of Right Foot Subcutaneous Tissue and Fascia, Open Approach (ICD-10-PCS; 2017-06-21)
PROC: 0QBQ3ZX Excision of Right Toe Phalanx, Percutaneous Approach, Diagnostic (ICD-10-PCS; 2017-06-21)
PROC: 0H9MXZZ Drainage of Right Foot Skin, External Approach (ICD-10-PCS; 2017-06-21)
PROC: 0Y6P0Z0 Detachment at Right 1st Toe, Complete, Open Approach (ICD-10-PCS; principal; 2017-06-27 13:02)
DX: E11.69 Type 2 diabetes mellitus with other specified complication (principal); E87.1 Hypo-osmolality and hyponatremia; N17.9 Acute kidney failure, unspecified; M86.671 Other chronic osteomyelitis, right ankle and foot; E11.52 Type 2 diabetes mellitus with diabetic peripheral angiopathy with gangrene; I11.0 Hypertensive heart disease with heart failure; I50.9 Heart failure, unspecified; E11.65 Type 2 diabetes mellitus with hyperglycemia; E11.628 Type 2 diabetes mellitus with other skin complications; E11.621 Type 2 diabetes mellitus with foot ulcer; B35.1 Tinea unguium; E11.42 Type 2 diabetes mellitus with diabetic polyneuropathy; L97.519 Non-pressure chronic ulcer of other part of right foot with unspecified severity; K21.9 Gastro-esophageal reflux disease without esophagitis; N40.0 Benign prostatic hyperplasia without lower urinary tract symptoms; I25.10 Atherosclerotic heart disease of native coronary artery without angina pectoris; E78.5 Hyperlipidemia, unspecified; L03.031 Cellulitis of right toe; K59.00 Constipation, unspecified; T36.8X5A Adverse effect of other systemic antibiotics, initial encounter; Z23 Encounter for immunization; B95.62 Methicillin resistant Staphylococcus aureus infection as the cause of diseases classified elsewhere; Z79.84 Long term (current) use of oral hypoglycemic drugs; Z85.828 Personal history of other malignant neoplasm of skin; Z91.14 Patient's other noncompliance with medication regimen; Z95.1 Presence of aortocoronary bypass graft; Z95.5 Presence of coronary angioplasty implant and graft
CPT/HCPCS: 73630; 73660; 73720; 75635; 80048; 80053; 80202; 82565; 82948; 83036; 83605; 83735; 84100; 84439; 84443; 85025; 85610; 85652; 85730; 86140; 86403; 87015; 87040; 87070; 87102; 87116; 87147; 87176; 87186; 87205; 87206; 88305; 88307; 88311; 90686; 93880; 96365; 96366; 96368; A9579; G0378; G8987-GP; G8988-GP; G8989-GP; J1100; J1644; J1815; J2405; J2543; J3010; J3370; J3480; J7040; J7050; J7120; L3260; Q2038; Q9967